=== PATIENT | male | born 1940 | race Caucasian/White ===

== ENCOUNTER 2021-01-25 11:24 | Inpatient (IN) | payer MEDICARE, BC ==
--- NOTE | 2021-01-25 11:44 | EDM.PDOC ---
ED HPI GENERAL MEDICAL PROBLEM - General Chief Complaint: General Stated Complaint: MEDICAL [facility]IA [facility] Time Seen by Provider: 01/25/21 11:44 Source of Information: Reports: Patient History Limitations: Reports: No Limitations - History of Present Illness INITIAL COMMENTS - FREE TEXT/NARRATIVE: pt is being treated for a UTI and is having increased falls. He fell today and was on the floor for about 3-4 hours. He did not injure himself. He is having trouble controlling his bladder at this time. He is not running a fever. This pt has had a very rapid deteriation. He has gone from someone who was walking secveral miles per day and mowing lawn in October to someonw who can not do anything physical. He had to quit walking because he was falling along side of the road. Onset: Gradual, Other (pt is having multiple falls. ) Duration: Hour(s): Location: Reports: Generalized Associated Symptoms: Reports: Other (pt does have slight confusion at times. He has fallen today and yesterday and spent several hours on the floor because he could not get up. ) Generalized Pain Score (Numeric/FACES): 3 - Related Data Allergies Allergy/AdvReac Type Severity Reaction Status Date / Time No Known Allergies Allergy Verified 01/25/21 11:31 Home Meds: Home Meds Oxybutynin Chloride [Oxybutynin Chloride ER] 10 mg PO DAILY 01/25/21 [History] Rivaroxaban [Xarelto] 20 mg PO DAILY 01/25/21 [History] Simvastatin 80 mg PO BEDTIME 01/25/21 [History] Terazosin [Hytrin] 10 mg PO BEDTIME 01/25/21 [History] Propranolol HCl 20 mg PO DAILY 02/10/21 [History] Past Medical History HEENT History: Reports: Hard of Hearing, Impaired Vision Cardiovascular History: Reports: Afib, High Cholesterol Respiratory History: Reports: Sleep Apnea Genitourinary History: Reports: Urinary Incontinence Musculoskeletal History: Reports: Arthritis, Back Pain, Chronic Neurological History: Reports: Concussion Hematologic History: Reports: Anticoagulation Therapy Oncologic (Cancer) History: Reports: Bladder - Infectious Disease History Infectious Disease History: Reports: Chicken Pox, Influenza, Measles, Mumps - Past Surgical History Head Surgeries/Procedures: Reports: None HEENT Surgical History: Reports: Cataract Surgery Cardiovascular Surgical History: Reports: None Respiratory Surgical History: Reports: None Endocrine Surgical History: Reports: None Neurological Surgical History: Reports: None Musculoskeletal Surgical History: Reports: None Oncologic Surgical History: Reports: None Social & Family History - Tobacco Use Tobacco Use Status *Q: Never Tobacco User Second Hand Smoke Exposure: No - Caffeine Use Caffeine Use: Reports: None - Recreational Drug Use Recreational Drug Use: No ED ROS GENERAL - Review of Systems Review Of Systems: See Below Constitutional: Reports: Weakness HEENT: Reports: No Symptoms Respiratory: Reports: No Symptoms Cardiovascular: Reports: No Symptoms Endocrine: Reports: No Symptoms GI/Abdominal: Reports: No Symptoms : Reports: No Symptoms, Other (pt has had a recent UTI) Musculoskeletal: Reports: No Symptoms Skin: Reports: No Symptoms Neurological: Reports: Difficulty Walking, Gait Disturbance, Other (increased falls. ) Psychiatric: Reports: Anxiety ED EXAM, GENERAL - Physical Exam Exam: See Below Free Text/Narrative:: pt arrived with a history of a downhill slide over the past 2-4 monthes. In the spring he was able to mow lawn He was doing alot of walking but because of frequent falls on the road he had to quit that. He is now falling alot in the house. He will slide off of the bed and then not be able to get up. 2 days in a row he has fallen and his can,t get him up. He has not hurt himself fortunately. He is not having headaches. He did have a recent uiti. Exam Limited By: No Limitations General Appearance: Alert, No Apparent Distress, Other (pupils are equal and reactive. ) Ears: Normal TMs Nose: Normal Inspection Throat/Mouth: Normal Inspection Head: Atraumatic Respiratory/Chest: No Respiratory Distress Cardiovascular: Irregularly Irregular, Other (pt has a history of chronic afib. ) GI/Abdominal: Soft, Non-Tender (Male) Exam: Deferred Rectal (Males) Exam: Normal Exam Back Exam: Normal Inspection Extremities: Other (pt has degenerative changes of the left knee. His feet are peeling alot and are very tender. ) Neurological: Alert, Oriented, Normal Cognition Psychiatric: Anxious Skin Exam: Dry, Other (pt has alot of peeling on his feet. ) Course - Vital Signs Last Recorded V/S: Last Vital Signs Temp 36.3 C 02/07/21 08:30 Pulse 75 02/07/21 08:30 Resp 18 02/07/21 08:30 BP 122/87 02/07/21 08:30 Pulse Ox 96 02/07/21 08:30 Orthostatic Blood Pressure [ 161/122 Sitting] Orthostatic Blood Pressure [ 164/111 Supine] - Orders/Labs/Meds Labs: Laboratory Tests 01/25/21 01/25/21 01/25/21 Range/Units 12:08 12:08 12:08 WBC 6.3 (4.5-11.0) K/uL RBC 4.73 (4.30-5.90) M/uL Hgb 15.2 H (12.0-15.0) g/dL Hct 44.4 (40.0-54.0) % MCV 94 (80-98) fL MCH 32 H (27-31) pg MCHC 34 (32-36) % Plt Count 101 L (150-400) K/uL Neut % (Auto) 71.4 H (36-66) % Lymph % (Auto) 13.9 L (24-44) % [place] % (Auto) 12.0 H (2-6) % Eos % (Auto) 2.2 (2-4) % Baso % (Auto) 0.5 (0-1) % Sodium 139 L (140-148) mmol/L Potassium 4.1 (3.6-5.2) mmol/L Chloride 105 (100-108) mmol/L Carbon Dioxide 29 (21-32) mmol/L Anion Gap 9.1 (5.0-14.0) mmol/L BUN 24 H (7-18) mg/dL Creatinine 1.2 (0.8-1.3) mg/dL Est Cr Clr Drug Dosing 52.09 mL/min Estimated GFR (MDRD) 58 L (>60) Glucose 97 (74-106) mg/dL Calcium 9.0 (8.5-10.1) mg/dL Total Bilirubin 1.1 H (0.2-1.0) mg/dL AST 22 (15-37) U/L ALT 18 (12-78) U/L Alkaline Phosphatase 54 (46-116) U/L Creatine Kinase 135 (39-308) U/L Total Protein 6.7 (6.4-8.2) g/dL Albumin 3.2 L (3.4-5.0) g/dL Globulin 3.5 (2.3-3.5) g/dL Albumin/Globulin Ratio 0.9 L (1.2-2.2) Urine Color (YELLOW) Urine Appearance (CLEAR) Urine pH (5.0-8.0) Ur Specific [place] (1.008-1.030) Urine Protein (NEGATIVE) mg/dL Urine Glucose (UA) (NEGATIVE) mg/dL Urine Ketones (NEGATIVE) mg/dL Urine Occult Blood (NEGATIVE) Urine Nitrite (NEGATIVE) Urine Bilirubin (NEGATIVE) Urine Urobilinogen (0.2-1.0) EU/dL Ur Leukocyte Esterase (NEGATIVE) Urine RBC (0-5) Urine WBC (0-5) Ur Epithelial Cells Amorphous Sediment Urine Bacteria Urine Mucus 01/25/21 Range/Units 12:42 WBC (4.5-11.0) K/uL RBC (4.30-5.90) M/uL Hgb (12.0-15.0) g/dL Hct (40.0-54.0) % MCV (80-98) fL MCH (27-31) pg MCHC (32-36) % Plt Count (150-400) K/uL Neut % (Auto) (36-66) % Lymph % (Auto) (24-44) % [place] % (Auto) (2-6) % Eos % (Auto) (2-4) % Baso % (Auto) (0-1) % Sodium (140-148) mmol/L Potassium (3.6-5.2) mmol/L Chloride (100-108) mmol/L Carbon Dioxide (21-32) mmol/L Anion Gap (5.0-14.0) mmol/L BUN (7-18) mg/dL Creatinine (0.8-1.3) mg/dL Est Cr Clr Drug Dosing mL/min Estimated GFR (MDRD) (>60) Glucose (74-106) mg/dL Calcium (8.5-10.1) mg/dL Total Bilirubin (0.2-1.0) mg/dL AST (15-37) U/L ALT (12-78) U/L Alkaline Phosphatase (46-116) U/L Creatine Kinase (39-308) U/L Total Protein (6.4-8.2) g/dL Albumin (3.4-5.0) g/dL Globulin (2.3-3.5) g/dL Albumin/Globulin Ratio (1.2-2.2) Urine Color Yellow (YELLOW) Urine Appearance Clear (CLEAR) Urine pH 5.5 (5.0-8.0) Ur Specific [place] >= 1.030 (1.008-1.030) Urine Protein 100 H (NEGATIVE) mg/dL Urine Glucose (UA) Negative (NEGATIVE) mg/dL Urine Ketones Trace H (NEGATIVE) mg/dL Urine Occult Blood Trace-intact H (NEGATIVE) Urine Nitrite Negative (NEGATIVE) Urine Bilirubin Small H (NEGATIVE) Urine Urobilinogen 0.2 (0.2-1.0) EU/dL Ur Leukocyte Esterase Negative (NEGATIVE) Urine RBC 5-10 H (0-5) Urine WBC 0-5 (0-5) Ur Epithelial Cells Not seen Amorphous Sediment Few Urine Bacteria Occasional Urine Mucus Few Meds: Medications Discontinued Medications Generic Name Dose Route Start Last Admin Trade Name Freq PRN Reason Stop Dose Admin Acetaminophen 650 mg 01/25/21 17:30 02/02/21 06:22 Acetaminophen 325 Mg Tab PO 650 mg Q4H PRN Administration Pain (Mild 1-3)/fever Amoxicillin 500 mg 01/25/21 21:00 01/26/21 14:32 Amoxicillin 500 Mg Cap PO 500 mg TID SEVERINO Administration Amoxicillin 500 mg 01/26/21 14:30 01/26/21 14:35 Amoxicillin 500 Mg Ptom PO Not Given TID SEVERINO Amoxicillin 500 mg 01/26/21 21:00 01/31/21 08:48 Amoxicillin 500 Mg Cap PO 500 mg TID SEVERINO Administration Diphenhydramine HCl 25 mg 01/28/21 01:57 01/28/21 05:22 Diphenhydramine 50 Mg/Ml Sdv IVPUSH 01/28/21 01:58 25 mg ONETIME ONE Administration Divalproex Sodium 125 mg 01/29/21 11:00 02/07/21 08:59 Divalproex Sodium Delayed-Release 125 Mg Cap.Sprink PO 125 mg BIDMEALS SEVERINO Administration Furosemide 40 mg 01/27/21 17:00 01/27/21 17:23 Furosemide 40 Mg Tab PO 01/27/21 17:01 40 mg ONETIME ONE Administration Furosemide 40 mg 01/28/21 09:00 02/07/21 09:02 Furosemide 40 Mg Tab PO 40 mg DAILY SEVERINO Administration Furosemide 20 mg 02/03/21 13:59 02/03/21 17:04 Furosemide 40 Mg/4 Ml Vial IVPUSH 02/03/21 14:00 Not Given NOW ONE Furosemide 20 mg 02/03/21 16:00 02/03/21 16:10 Furosemide 20 Mg/2 Ml Vial IVPUSH 02/03/21 16:01 20 mg NOW ONE Administration Furosemide 20 mg 02/04/21 16:45 02/04/21 17:05 Furosemide 20 Mg/2 Ml Vial IVPUSH 02/04/21 16:46 20 mg NOW ONE Administration Furosemide 20 mg 02/05/21 17:00 02/05/21 17:04 Furosemide 20 Mg/2 Ml Vial IVPUSH 02/05/21 17:01 20 mg NOW ONE Administration Furosemide 20 mg 02/06/21 17:00 02/06/21 16:19 Furosemide 20 Mg/2 Ml Vial IVPUSH 02/06/21 17:01 20 mg NOW ONE Administration Sodium Chloride 1,000 mls @ 999 mls/hr 01/25/21 14:00 01/25/21 14:10 Normal Saline IV 999 mls/hr ASDIRECTED SEVERINO Administration Lidocaine HCl 10 ml 01/25/21 12:20 01/25/21 12:44 Lidocaine 2% Jelly 10 Ml Urojet MUCMEM 01/25/21 12:21 10 ml ONETIME ONE Administration Lorazepam 0.5 mg 01/25/21 17:30 Lorazepam 2 Mg/Ml Sdv IVPUSH Q4H PRN Nausea/Vomiting Lorazepam 1 mg 01/26/21 11:46 01/26/21 11:53 Lorazepam 1 Mg Tab PO 01/26/21 11:47 1 mg ONETIME STA Administration Melatonin 9 mg 01/25/21 21:00 02/06/21 20:07 Melatonin 3 Mg Tab PO 9 mg BEDTIME SEVERINO Administration Methylprednisolone Sodium Succinate 40 mg 02/03/21 14:00 02/05/21 08:23 Methylprednisolone Sodium Succinate 40 Mg/1 Ml Sdv IVPUSH 02/05/21 16:00 40 mg DAILY SEVERINO Administration Ondansetron HCl 4 mg 01/25/21 17:30 Ondansetron 4 Mg/2 Ml Sdv IV Q6H PRN Nausea/Vomiting Ondansetron HCl 4 mg 01/25/21 17:30 Ondansetron 4 Mg Tab.Dis PO Q6H PRN Nausea able to take PO Polyethylene Glycol 17 gm 01/25/21 17:30 Polyethylene Glycol 3350 Powder 17 Gm Packet PO DAILY PRN Constipation Potassium Chloride 40 meq 01/30/21 06:56 01/30/21 09:09 Potassium Chloride 20 Meq Tab.Er PO 01/30/21 06:57 40 meq ONETIME ONE Administration Potassium Chloride 40 meq 02/05/21 09:30 02/05/21 09:59 Potassium Chloride 20 Meq Tab.Er PO 02/05/21 09:31 40 meq ONETIME ONE Administration Potassium Chloride 40 meq 02/05/21 17:00 02/05/21 17:05 Potassium Chloride 20 Meq Tab.Er PO 02/05/21 17:01 40 meq ONETIME ONE Administration Potassium Chloride 40 meq 02/06/21 12:00 02/06/21 11:35 Potassium Chloride 20 Meq Tab.Er PO 02/06/21 12:01 40 meq ONETIME ONE Administration Propranolol HCl 120 mg 01/26/21 09:00 01/26/21 10:08 Propranolol 60 Mg Cap.Er PO 120 mg DAILY SEVERINO Administration Senna/Docusate Sodium 1 tab 01/25/21 17:30 02/02/21 06:22 Docusate Sodium/Sennosides 50-8.6 Mg Tab PO 1 tab BID PRN Administration Constipation Sodium Chloride 10 ml 02/03/21 15:48 Sodium Chloride 0.9% 10 Ml Syringe FLUSH ASDIRECTED PRN Keep Vein Open Terazosin HCl 10 mg 01/25/21 21:00 01/25/21 20:34 Terazosin 5 Mg Cap PO 10 mg BEDTIME SEVERINO Administration Terazosin HCl 10 mg 01/26/21 21:00 02/06/21 20:06 Terazosin 5 Mg Cap PO 10 mg BEDTIME SEVERINO Administration - Re-Assessments/Exams Free Text/Narrative Re-Assessment/Exam: 01/25/21 15:32 pt has very concentrated urine but the infection appears to be coming under control He continues to fall and then is not able to get up. His cat scan of the head does show enlarged ventricles. Departure - Departure Time of Disposition: 15:36 Disposition: Admitted As Inpatient 64 Condition: Fair Clinical Impression: Falls frequently, Recent urinary tract infection - Discharge Information
[2021-01-25] MEDS ORDERED: Lidocaine 2% Jelly 10 ML Urojet MUCMEM ONE (12:20)
[2021-01-25] MEDS ORDERED: Sodium Chloride 0.9% 1,000 ML IV SCH (14:00)
--- NOTE | 2021-01-25 14:38 | CT ---
Head wo Cont CLINICAL HISTORY: Increased following, confusion COMPARISON: 04/05/2018 TECHNIQUE: Transverse scans were obtained from the base of the skull through the vertex without IV contrast on a multislice, multidetector CT scanner. Auto dosage reduction and iterative reconstruction techniques employed. FINDINGS: No focal abnormal parenchymal densities are identified.. There is no mass effect, hemorrhage, or extraaxial collection. There is some periventricular and subcortical lucency. The basal cisterns and sulci over the convexities are prominent. The ventricles are moderately prominent and have increased in size since 2018. IMPRESSION: No hemorrhage or extra-axial collection Moderate ventricular enlargement which is increased since 2018. Some of this may be due to generalized atrophy but normal pressure hydrocephalus is also a consideration. Chronic ischemic microvascular changes
--- NOTE | 2021-01-25 16:42 | PCM.HP.2 ---
H&P History of Present Illness - General Date of Service: 01/25/21 Admit Problem/Dx: Admission Diagnosis/Problem Admission Diagnosis/Problem Falls Source of Information: Patient, Provider History Limitations: Reports: No Limitations - History of Present Illness Initial Comments - Free Text/Narative: CC: I guess I fell down HPI: Valentin presents to the emergency room today after another fall earlier in the day. He was too weak to get up and laid on the floor for 3 to 4 hours before an ambulance was summoned. He also reports several falls over the past few days and infrequent but progressive falls prior to that. Symptoms have progressed over the last 3 to 4 months. He reports feeling unsteady on his feet like his feet cannot keep up with his torso and then he falls forward. He does not report any preceding dizziness, lightheadedness or palpitations. Once he is on the floor he is too weak to get up and the weakness has progressed over the past several days. Does not report headache or blurry vision. He has not noticed any tremors. No chest pain. No dyspnea beyond baseline. He has noticed some urinary urgency recently but has not had incontinence. No change in bowel habits. No medication changes. He is currently receiving antibiotic therapy for urinary tract infection with a culture positive for a strep species. He is aware of some intermittent short-term memory problems and his reports intermittent episodes of confusion though these have not been prominent. He does not have any difficulty with swallowing. Work-up in the emergency room has been fairly reassuring as far as laboratory studies and his urinary tract infection seems to be clearing. Head CT did show moderate enlargement of the ventricles with a slight increase compared to his most recent head CT. There is concern for normal pressure hydrocephalus. Patient will be admitted for additional imaging as well as physical therapy and neurology consultation after that is complete. - Related Data Allergies/Adverse Reactions: Allergies Allergy/AdvReac Type Severity Reaction Status Date / Time No Known Allergies Allergy Verified 01/25/21 11:31 Home Medications: Home Meds Amoxicillin 500 mg PO TID 01/25/21 [History] Oxybutynin Chloride [Oxybutynin Chloride ER] 10 mg PO DAILY 01/25/21 [History] Propranolol HCl [Propranolol HCl ER] 120 mg PO DAILY 01/25/21 [History] Rivaroxaban [Xarelto] 1 tab PO DAILY 01/25/21 [History] Simvastatin 80 mg PO DAILY 01/25/21 [History] Terazosin [Hytrin] 10 mg PO BEDTIME 01/25/21 [History] Past Medical History HEENT History: Reports: Hard of Hearing, Impaired Vision Cardiovascular History: Reports: Afib, High Cholesterol Respiratory History: Reports: Sleep Apnea Genitourinary History: Reports: Urinary Incontinence Musculoskeletal History: Reports: Arthritis, Back Pain, Chronic Neurological History: Reports: Concussion Hematologic History: Reports: Anticoagulation Therapy Oncologic (Cancer) History: Reports: Bladder - Infectious Disease History Infectious Disease History: Reports: Chicken Pox, Influenza, Measles, Mumps - Past Surgical History Head Surgeries/Procedures: Reports: None HEENT Surgical History: Reports: Cataract Surgery Cardiovascular Surgical History: Reports: None Respiratory Surgical History: Reports: None Endocrine Surgical History: Reports: None Neurological Surgical History: Reports: None Musculoskeletal Surgical History: Reports: None Oncologic Surgical History: Reports: None Social & Family History - Family History Neurological: Denies: Parkinson's - Tobacco Use Tobacco Use Status *Q: Never Tobacco User Second Hand Smoke Exposure: No - Caffeine Use Caffeine Use: Reports: None - Alcohol Use Alcohol Use History: No Alcohol Use in Last Twelve Months: No - Recreational Drug Use Recreational Drug Use: No H&P Review of Systems - Review of Systems: Review Of Systems: See Below Free Text/Narrative: A complete 12 point review of systems was obtained. Pertinent positives and negatives are noted in the history of present illness. All other systems were reviewed and were negative except as noted. Exam - Exam Exam: See Below - Vital Signs Vital Signs: Last Vital Signs Temp 36.7 C 01/25/21 12:14 Pulse 55 L 01/25/21 15:53 Resp 12 01/25/21 15:53 BP 95/74 01/25/21 15:53 Pulse Ox 95 01/25/21 15:53 Orthostatic Blood Pressure [ 161/122 Sitting] Orthostatic Blood Pressure [ 164/111 Supine] Weight: 99.79 kg - Exam Quality Assessment: No: Supplemental Oxygen General: Alert, Oriented, Cooperative. No: Mild Distress HEENT: PERRLA, Conjunctiva Clear, EOMI. No: Mucosa Moist & [place] (dry), Rhinitis, Scleral Icterus Neck: Supple, Trachea Midline. No: Lymphadenopathy, JVD Lungs: Clear to Auscultation, Normal Respiratory Effort Cardiovascular: Regular Rate, Irregular Rhythm. No: Systolic Murmur GI/Abdominal Exam: Normal Bowel Sounds, Soft, Non-Tender, No Distention Extremities: No Pedal Edema. No: Increased Warmth Peripheral Pulses: 2+: Dorsalis Pedis (L), Dorsalis Pedis (R) Skin: Warm, Dry, Intact, Wound (right great toenail avulsed without bleeding ). No: Rash Neuro Extensive - Mental Status: Alert, Oriented x3, Memory Loss-Remote Events, Nl Response to Commands Neuro Extensive - Motor, Sensory, Reflexes: No: Dysarthria, Abnormal Sensation, Abnormal Motor, Babinski, Tremor DTR: 1+: Bicep (L), Bicep (R), Patella (L), Patella (R) Psychiatric: Alert, Normal Affect - Patient Data Lab Results Last 24 hrs: Laboratory Results - last 24 hr 01/25/21 01/25/21 01/25/21 Range/Units 12:08 12:08 12:08 WBC 6.3 (4.5-11.0) K/uL RBC 4.73 (4.30-5.90) M/uL Hgb 15.2 H (12.0-15.0) g/dL Hct 44.4 (40.0-54.0) % MCV 94 (80-98) fL MCH 32 H (27-31) pg MCHC 34 (32-36) % Plt Count 101 L (150-400) K/uL Neut % (Auto) 71.4 H (36-66) % Lymph % (Auto) 13.9 L (24-44) % [place] % (Auto) 12.0 H (2-6) % Eos % (Auto) 2.2 (2-4) % Baso % (Auto) 0.5 (0-1) % Sodium 139 L (140-148) mmol/L Potassium 4.1 (3.6-5.2) mmol/L Chloride 105 (100-108) mmol/L Carbon Dioxide 29 (21-32) mmol/L Anion Gap 9.1 (5.0-14.0) mmol/L BUN 24 H (7-18) mg/dL Creatinine 1.2 (0.8-1.3) mg/dL Est Cr Clr Drug Dosing 52.09 mL/min Estimated GFR (MDRD) 58 L (>60) Glucose 97 (74-106) mg/dL Calcium 9.0 (8.5-10.1) mg/dL Total Bilirubin 1.1 H (0.2-1.0) mg/dL AST 22 (15-37) U/L ALT 18 (12-78) U/L Alkaline Phosphatase 54 (46-116) U/L Creatine Kinase 135 (39-308) U/L Total Protein 6.7 (6.4-8.2) g/dL Albumin 3.2 L (3.4-5.0) g/dL Globulin 3.5 (2.3-3.5) g/dL Albumin/Globulin Ratio 0.9 L (1.2-2.2) Urine Color (YELLOW) Urine Appearance (CLEAR) Urine pH (5.0-8.0) Ur Specific [place] (1.008-1.030) Urine Protein (NEGATIVE) mg/dL Urine Glucose (UA) (NEGATIVE) mg/dL Urine Ketones (NEGATIVE) mg/dL Urine Occult Blood (NEGATIVE) Urine Nitrite (NEGATIVE) Urine Bilirubin (NEGATIVE) Urine Urobilinogen (0.2-1.0) EU/dL Ur Leukocyte Esterase (NEGATIVE) Urine RBC (0-5) Urine WBC (0-5) Ur Epithelial Cells Amorphous Sediment Urine Bacteria Urine Mucus 01/25/21 Range/Units 12:42 WBC (4.5-11.0) K/uL RBC (4.30-5.90) M/uL Hgb (12.0-15.0) g/dL Hct (40.0-54.0) % MCV (80-98) fL MCH (27-31) pg MCHC (32-36) % Plt Count (150-400) K/uL Neut % (Auto) (36-66) % Lymph % (Auto) (24-44) % [place] % (Auto) (2-6) % Eos % (Auto) (2-4) % Baso % (Auto) (0-1) % Sodium (140-148) mmol/L Potassium (3.6-5.2) mmol/L Chloride (100-108) mmol/L Carbon Dioxide (21-32) mmol/L Anion Gap (5.0-14.0) mmol/L BUN (7-18) mg/dL Creatinine (0.8-1.3) mg/dL Est Cr Clr Drug Dosing mL/min Estimated GFR (MDRD) (>60) Glucose (74-106) mg/dL Calcium (8.5-10.1) mg/dL Total Bilirubin (0.2-1.0) mg/dL AST (15-37) U/L ALT (12-78) U/L Alkaline Phosphatase (46-116) U/L Creatine Kinase (39-308) U/L Total Protein (6.4-8.2) g/dL Albumin (3.4-5.0) g/dL Globulin (2.3-3.5) g/dL Albumin/Globulin Ratio (1.2-2.2) Urine Color Yellow (YELLOW) Urine Appearance Clear (CLEAR) Urine pH 5.5 (5.0-8.0) Ur Specific [place] >= 1.030 (1.008-1.030) Urine Protein 100 H (NEGATIVE) mg/dL Urine Glucose (UA) Negative (NEGATIVE) mg/dL Urine Ketones Trace H (NEGATIVE) mg/dL Urine Occult Blood Trace-intact H (NEGATIVE) Urine Nitrite Negative (NEGATIVE) Urine Bilirubin Small H (NEGATIVE) Urine Urobilinogen 0.2 (0.2-1.0) EU/dL Ur Leukocyte Esterase Negative (NEGATIVE) Urine RBC 5-10 H (0-5) Urine WBC 0-5 (0-5) Ur Epithelial Cells Not seen Amorphous Sediment Few Urine Bacteria Occasional Urine Mucus Few Result Diagrams: 01/25/21 12:08 01/25/21 12:08 Imaging Impressions Last 24 hrs: Head CT-images personally reviewed-mild diffuse volume loss. Ventricles moderately enlarged, possibly slightly more than expected with volume loss. No mass or hemorrhage Sepsis Event Note - Focused Exam Vital Signs: Vital Signs Temp Pulse Resp BP Pulse Ox 01/25/21 15:53 55 L 12 95/74 95 01/25/21 15:30 69 16 148/98 H 94 L 01/25/21 14:40 64 19 140/90 97 01/25/21 13:27 55 L 15 158/85 H 94 L 01/25/21 12:26 54 L 21 H 128/72 95 01/25/21 12:14 36.7 C 01/25/21 11:35 36.4 C 54 L 18 131/67 94 L 01/25/21 11:32 36.4 C 54 L 18 131/67 94 L *Q Meaningful Use (ADM) - VTE Risk Assess *Q Each Risk Factor Represents 1 Point: Obesity ( BMI > 25 kg/m2) Total Score 1 Point Risk Factors: 1 Each Risk Factor Represents 2 Points: Malignancy (present or previous) Total Score 2 Point Risk Factors: 2 Each Risk Factor Represents 3 Points: Age 75 Years or Greater Total Score 3 Point Risk Factors: 3 Each Risk Factor Represents 5 Points: None Total Score 5 Point Risk Factors: 0 Venous Thromboembolism Risk Factor Score *Q: 6 - Problem List (1) Falls frequently SNOMED Code(s): 740747167 ICD Code: R29.6 - REPEATED FALLS Status: Acute Current Visit: Yes (2) NPH (normal pressure hydrocephalus) SNOMED Code(s): 14861788 ICD Code: G91.2 - (IDIOPATHIC) NORMAL PRESSURE HYDROCEPHALUS Status: Suspected Current Visit: Yes (3) BPH loc w urin obs/LUTS SNOMED Code(s): 108975679 ICD Code: N40.1 - BENIGN PROSTATIC HYPERPLASIA WITH LOWER URINARY TRACT SYMP Status: Chronic Current Visit: Yes (4) Chronic atrial fibrillation SNOMED Code(s): 225605334 ICD Code: I48.20 - CHRONIC ATRIAL FIBRILLATION, UNSPECIFIED Status: Chronic Current Visit: Yes Problem List Initiated/Reviewed/Updated: Yes Orders Last 24hrs: Active Orders 24 hr Category Date Time Status Patient Status Manage Transfer [TRANSFER] Routine ADT 01/25/21 16:32 Ordered Orthostatic Vital Signs [RC] ASDIRECTED Care 01/25/21 13:47 Active Sodium Chloride 0.9% [Normal Saline] 1,000 ml Med 01/25/21 14:00 Active IV ASDIRECTED Resuscitation Status Routine Resus Stat 01/25/21 16:33 Ordered Medication Orders Sodium Chloride (Normal Saline) 1,000 mls @ 999 mls/hr IV ASDIRECTED SEVERINO Last Admin: 01/25/21 14:10 Dose: 999 mls/hr Documented by: CALEB Assessment/Plan Comment:: ASSESSMENT AND PLAN - Repeated falls, urinary urgency and memory difficulties-concerning for NPH and he has previously been worked up for this though it was thought to be mild if present about 2 years ago. He has had a progression of symptoms with more rapid decline in recent weeks and especially the last few days. He is being treated for urinary tract infection but there is no evidence for sepsis. I doubt this is contributing. Medication side effect related to potentially the oxybutynin with an anticholinergic effect or less likely simvastatin which is being used at high dose could cause a similar syndrome. Head CT today did show some enlargement of the ventricles compared to previous imaging. We cannot perform a lumbar puncture because of his use of systemic anticoagulation. -MRI of the brain in the morning -Physical therapy evaluation -Hold oxybutynin and simvastatin -Neurology consultation -TSH, CRP and sedimentation rate Chronic atrial fibrillation-currently rate controlled with propranolol. He is on chronic anticoagulation with rivaroxaban. -Continue propranolol -Hold rivaroxaban in case we do need to perform a lumbar puncture History of bladder cancer-regularly follows with [facility]. Is not thought to have active disease and appears to be in remission. BPH with lower urinary tract symptoms-he is on 2 different medications including the oxybutynin to help with bladder issues. The oxybutynin could be contr ibuting as discussed above. -Hold oxybutynin Maintenance issues - -DVT prophylaxis- mechanical -GI prophylaxis-not indicated -Nutrition-regular -Hernandez catheter-not indicated CODE STATUS -full code Admission justification -this patient will be admitted to observation status for expedited work-up of his recurrent falls and possible NPH Disposition -I anticipate discharge home after the hospital stay versus potentially transfer to a higher level of care Primary care physician - Leland Goldberg M.D. - Mortality Measure Prognosis:: Good
[2021-01-25] MEDS ORDERED: Ondansetron 4 MG Tab.DIS PO PRN (17:30)
[2021-01-25] MEDS ORDERED: LORazepam 2 MG/ML SDV IVPUSH PRN (17:30)
[2021-01-25] MEDS ORDERED: Ondansetron 4 MG/2 ML SDV IV PRN (17:30)
[2021-01-25] MEDS ORDERED: Polyethylene Glycol 3350 Powder 17 GM Packet PO PRN (17:30)
[2021-01-25] MEDS: Melatonin 3 MG Tab PO SCH (20:33)
[2021-01-25] MEDS: Amoxicillin 500 MG Cap PO SCH (20:34)
[2021-01-25] MEDS ORDERED: Terazosin 5 MG Cap PO SCH (21:00)
[2021-01-26] MEDS: Amoxicillin 500 MG Cap PO SCH ×3 (08:42→20:37)
[2021-01-26] MEDS ORDERED: Propranolol 60 MG Cap.ER PO SCH (09:00)
--- NOTE | 2021-01-26 09:58 | PCM.PN ---
- General Info Date of Service: 01/26/21 Subjective Update: No acute events overnight. One episode of very mild bradycardia noted on telemetry but heart rate only dipped down to 48. Most of his heart rates have been in the 60s. Patient says he feels well today and is hoping to go home later. He currently requires a fairly heavy assist of 2 folks to get around. He does not think he needs this much assistance and thinks he could do better if they left him alone. No complaints of headache or nausea. MRI is still pending and he is not sure if he wants to have this test done or not because he thinks it might be too loud. He is asking to be transferred to [place] to have the test done there. Functional Status: Reports: Pain Controlled, Tolerating Diet - Review of Systems General: Reports: Weakness. Denies: Fever - Patient Data Vitals - Most Recent: Last Vital Signs Temp 36.0 C L 01/26/21 09:30 Pulse 68 01/26/21 09:30 Resp 18 01/26/21 09:30 BP 150/98 H 01/26/21 09:30 Pulse Ox 96 01/26/21 09:30 Orthostatic Blood Pressure [ 161/122 Sitting] Orthostatic Blood Pressure [ 164/111 Supine] Weight - Most Recent: 100.698 kg I&O - Last 24 Hours: Intake & Output 01/25/21 01/26/21 01/26/21 22:59 06:59 14:59 Intake Total 480 425 Balance 480 425 Lab Results Last 24 Hours: Laboratory Results - last 24 hr 01/25/21 01/25/21 01/25/21 Range/Units 12:08 12:08 12:08 WBC 6.3 (4.5-11.0) K/uL RBC 4.73 (4.30-5.90) M/uL Hgb 15.2 H (12.0-15.0) g/dL Hct 44.4 (40.0-54.0) % MCV 94 (80-98) fL MCH 32 H (27-31) pg MCHC 34 (32-36) % Plt Count 101 L (150-400) K/uL Neut % (Auto) 71.4 H (36-66) % Lymph % (Auto) 13.9 L (24-44) % [place] % (Auto) 12.0 H (2-6) % Eos % (Auto) 2.2 (2-4) % Baso % (Auto) 0.5 (0-1) % ESR (0-20) mm/hr Sodium 139 L (140-148) mmol/L Potassium 4.1 (3.6-5.2) mmol/L Chloride 105 (100-108) mmol/L Carbon Dioxide 29 (21-32) mmol/L Anion Gap 9.1 (5.0-14.0) mmol/L BUN 24 H (7-18) mg/dL Creatinine 1.2 (0.8-1.3) mg/dL Est Cr Clr Drug Dosing 52.09 mL/min Estimated GFR (MDRD) 58 L (>60) Glucose 97 (74-106) mg/dL Calcium 9.0 (8.5-10.1) mg/dL Total Bilirubin 1.1 H (0.2-1.0) mg/dL AST 22 (15-37) U/L ALT 18 (12-78) U/L Alkaline Phosphatase 54 (46-116) U/L Creatine Kinase 135 (39-308) U/L C-Reactive Protein (0.0-0.3) mg/dL Total Protein 6.7 (6.4-8.2) g/dL Albumin 3.2 L (3.4-5.0) g/dL Globulin 3.5 (2.3-3.5) g/dL Albumin/Globulin Ratio 0.9 L (1.2-2.2) TSH, Ultra Sensitive (0.358-3.740) uIU/mL Urine Color (YELLOW) Urine Appearance (CLEAR) Urine pH (5.0-8.0) Ur Specific [place] (1.008-1.030) Urine Protein (NEGATIVE) mg/dL Urine Glucose (UA) (NEGATIVE) mg/dL Urine Ketones (NEGATIVE) mg/dL Urine Occult Blood (NEGATIVE) Urine Nitrite (NEGATIVE) Urine Bilirubin (NEGATIVE) Urine Urobilinogen (0.2-1.0) EU/dL Ur Leukocyte Esterase (NEGATIVE) Urine RBC (0-5) Urine WBC (0-5) Ur Epithelial Cells Amorphous Sediment Urine Bacteria Urine Mucus SARS-CoV-2 RNA (INDIO) (NEGATIVE) 01/25/21 01/25/21 01/26/21 Range/Units 12:42 17:01 04:59 WBC (4.5-11.0) K/uL RBC (4.30-5.90) M/uL Hgb (12.0-15.0) g/dL Hct (40.0-54.0) % MCV (80-98) fL MCH (27-31) pg MCHC (32-36) % Plt Count (150-400) K/uL Neut % (Auto) (36-66) % Lymph % (Auto) (24-44) % [place] % (Auto) (2-6) % Eos % (Auto) (2-4) % Baso % (Auto) (0-1) % ESR 18 (0-20) mm/hr Sodium (140-148) mmol/L Potassium (3.6-5.2) mmol/L Chloride (100-108) mmol/L Carbon Dioxide (21-32) mmol/L Anion Gap (5.0-14.0) mmol/L BUN (7-18) mg/dL Creatinine (0.8-1.3) mg/dL Est Cr Clr Drug Dosing mL/min Estimated GFR (MDRD) (>60) Glucose (74-106) mg/dL Calcium (8.5-10.1) mg/dL Total Bilirubin (0.2-1.0) mg/dL AST (15-37) U/L ALT (12-78) U/L Alkaline Phosphatase (46-116) U/L Creatine Kinase (39-308) U/L C-Reactive Protein (0.0-0.3) mg/dL Total Protein (6.4-8.2) g/dL Albumin (3.4-5.0) g/dL Globulin (2.3-3.5) g/dL Albumin/Globulin Ratio (1.2-2.2) TSH, Ultra Sensitive (0.358-3.740) uIU/mL Urine Color Yellow (YELLOW) Urine Appearance Clear (CLEAR) Urine pH 5.5 (5.0-8.0) Ur Specific [place] >= 1.030 (1.008-1.030) Urine Protein 100 H (NEGATIVE) mg/dL Urine Glucose (UA) Negative (NEGATIVE) mg/dL Urine Ketones Trace H (NEGATIVE) mg/dL Urine Occult Blood Trace-intact H (NEGATIVE) Urine Nitrite Negative (NEGATIVE) Urine Bilirubin Small H (NEGATIVE) Urine Urobilinogen 0.2 (0.2-1.0) EU/dL Ur Leukocyte Esterase Negative (NEGATIVE) Urine RBC 5-10 H (0-5) Urine WBC 0-5 (0-5) Ur Epithelial Cells Not seen Amorphous Sediment Few Urine Bacteria Occasional Urine Mucus Few SARS-CoV-2 RNA (INDIO) Negative (NEGATIVE) 01/26/21 Range/Units 04:59 WBC (4.5-11.0) K/uL RBC (4.30-5.90) M/uL Hgb (12.0-15.0) g/dL Hct (40.0-54.0) % MCV (80-98) fL MCH (27-31) pg MCHC (32-36) % Plt Count (150-400) K/uL Neut % (Auto) (36-66) % Lymph % (Auto) (24-44) % [place] % (Auto) (2-6) % Eos % (Auto) (2-4) % Baso % (Auto) (0-1) % ESR (0-20) mm/hr Sodium (140-148) mmol/L Potassium (3.6-5.2) mmol/L Chloride (100-108) mmol/L Carbon Dioxide (21-32) mmol/L Anion Gap (5.0-14.0) mmol/L BUN (7-18) mg/dL Creatinine (0.8-1.3) mg/dL Est Cr Clr Drug Dosing mL/min Estimated GFR (MDRD) (>60) Glucose (74-106) mg/dL Calcium (8.5-10.1) mg/dL Total Bilirubin (0.2-1.0) mg/dL AST (15-37) U/L ALT (12-78) U/L Alkaline Phosphatase (46-116) U/L Creatine Kinase (39-308) U/L C-Reactive Protein 4.89 H (0.0-0.3) mg/dL Total Protein (6.4-8.2) g/dL Albumin (3.4-5.0) g/dL Globulin (2.3-3.5) g/dL Albumin/Globulin Ratio (1.2-2.2) TSH, Ultra Sensitive 2.184 (0.358-3.740) uIU/mL Urine Color (YELLOW) Urine Appearance (CLEAR) Urine pH (5.0-8.0) Ur Specific [place] (1.008-1.030) Urine Protein (NEGATIVE) mg/dL Urine Glucose (UA) (NEGATIVE) mg/dL Urine Ketones (NEGATIVE) mg/dL Urine Occult Blood (NEGATIVE) Urine Nitrite (NEGATIVE) Urine Bilirubin (NEGATIVE) Urine Urobilinogen (0.2-1.0) EU/dL Ur Leukocyte Esterase (NEGATIVE) Urine RBC (0-5) Urine WBC (0-5) Ur Epithelial Cells Amorphous Sediment Urine Bacteria Urine Mucus SARS-CoV-2 RNA (INDIO) (NEGATIVE) Med Orders - Current: Current Medications Acetaminophen (Acetaminophen 325 Mg Tab) 650 mg PO Q4H PRN PRN Reason: Pain (Mild 1-3)/fever Amoxicillin (Amoxicillin 500 Mg Cap) 500 mg PO TID [facility] Last Admin: 01/26/21 08:42 Dose: 500 mg Documented by: Lorazepam (Lorazepam 2 Mg/Ml Sdv) 0.5 mg IVPUSH Q4H PRN PRN Reason: Nausea/Vomiting Melatonin (Melatonin 3 Mg Tab) 9 mg PO BEDTIME [facility] Last Admin: 01/25/21 20:33 Dose: 9 mg Documented by: Ondansetron HCl (Ondansetron 4 Mg/2 Ml Sdv) 4 mg IV Q6H PRN PRN Reason: Nausea/Vomiting Ondansetron HCl (Ondansetron 4 Mg Tab.Dis) 4 mg PO Q6H PRN PRN Reason: Nausea able to take PO Polyethylene Glycol (Polyethylene Glycol 3350 Powder 17 Gm Packet) 17 gm PO DAILY PRN PRN Reason: Constipation Propranolol HCl (Propranolol 60 Mg Cap.Er) 120 mg PO DAILY [facility] Senna/Docusate Sodium (Docusate Sodium/Sennosides 50-8.6 Mg Tab) 1 tab PO BID PRN PRN Reason: Constipation Terazosin HCl (Terazosin 5 Mg Cap) 10 mg PO BEDTIME [facility] Last Admin: 01/25/21 20:34 Dose: 10 mg Documented by: Discontinued Medications Sodium Chloride (Normal Saline) 1,000 mls @ 999 mls/hr IV ASDIRECTED [facility] Last Admin: 01/25/21 14:10 Dose: 999 mls/hr Documented by: Lidocaine HCl (Lidocaine 2% Jelly 10 Ml Urojet) 10 ml MUCMEM ONETIME ONE Stop: 01/25/21 12:21 Last Admin: 01/25/21 12:44 Dose: 10 ml Documented by: - Exam Quality Assessment: No: Supplemental Oxygen General: Alert, Cooperative, No Acute Distress Lungs: Normal Respiratory Effort GI/Abdominal Exam: Soft, No Distention Extremities: No Pedal Edema Skin: Warm, Dry Neurological: No New Focal Deficit Psy/Mental Status: Alert, Normal Affect - Patient Data Lab Results Last 24 hrs: Laboratory Results - last 24 hr 01/25/21 01/25/21 01/25/21 Range/Units 12:08 12:08 12:08 WBC 6.3 (4.5-11.0) K/uL RBC 4.73 (4.30-5.90) M/uL Hgb 15.2 H (12.0-15.0) g/dL Hct 44.4 (40.0-54.0) % MCV 94 (80-98) fL MCH 32 H (27-31) pg MCHC 34 (32-36) % Plt Count 101 L (150-400) K/uL Neut % (Auto) 71.4 H (36-66) % Lymph % (Auto) 13.9 L (24-44) % [place] % (Auto) 12.0 H (2-6) % Eos % (Auto) 2.2 (2-4) % Baso % (Auto) 0.5 (0-1) % ESR (0-20) mm/hr Sodium 139 L (140-148) mmol/L Potassium 4.1 (3.6-5.2) mmol/L Chloride 105 (100-108) mmol/L Carbon Dioxide 29 (21-32) mmol/L Anion Gap 9.1 (5.0-14.0) mmol/L BUN 24 H (7-18) mg/dL Creatinine 1.2 (0.8-1.3) mg/dL Est Cr Clr Drug Dosing 52.09 mL/min Estimated GFR (MDRD) 58 L (>60) Glucose 97 (74-106) mg/dL Calcium 9.0 (8.5-10.1) mg/dL Total Bilirubin 1.1 H (0.2-1.0) mg/dL AST 22 (15-37) U/L ALT 18 (12-78) U/L Alkaline Phosphatase 54 (46-116) U/L Creatine Kinase 135 (39-308) U/L C-Reactive Protein (0.0-0.3) mg/dL Total Protein 6.7 (6.4-8.2) g/dL Albumin 3.2 L (3.4-5.0) g/dL Globulin 3.5 (2.3-3.5) g/dL Albumin/Globulin Ratio 0.9 L (1.2-2.2) TSH, Ultra Sensitive (0.358-3.740) uIU/mL Urine Color (YELLOW) Urine Appearance (CLEAR) Urine pH (5.0-8.0) Ur Specific [place] (1.008-1.030) Urine Protein (NEGATIVE) mg/dL Urine Glucose (UA) (NEGATIVE) mg/dL Urine Ketones (NEGATIVE) mg/dL Urine Occult Blood (NEGATIVE) Urine Nitrite (NEGATIVE) Urine Bilirubin (NEGATIVE) Urine Urobilinogen (0.2-1.0) EU/dL Ur Leukocyte Esterase (NEGATIVE) Urine RBC (0-5) Urine WBC (0-5) Ur Epithelial Cells Amorphous Sediment Urine Bacteria Urine Mucus SARS-CoV-2 RNA (INDIO) (NEGATIVE) 01/25/21 01/25/21 01/26/21 Range/Units 12:42 17:01 04:59 WBC (4.5-11.0) K/uL RBC (4.30-5.90) M/uL Hgb (12.0-15.0) g/dL Hct (40.0-54.0) % MCV (80-98) fL MCH (27-31) pg MCHC (32-36) % Plt Count (150-400) K/uL Neut % (Auto) (36-66) % Lymph % (Auto) (24-44) % [place] % (Auto) (2-6) % Eos % (Auto) (2-4) % Baso % (Auto) (0-1) % ESR 18 (0-20) mm/hr Sodium (140-148) mmol/L Potassium (3.6-5.2) mmol/L Chloride (100-108) mmol/L Carbon Dioxide (21-32) mmol/L Anion Gap (5.0-14.0) mmol/L BUN (7-18) mg/dL Creatinine (0.8-1.3) mg/dL Est Cr Clr Drug Dosing mL/min Estimated GFR (MDRD) (>60) Glucose (74-106) mg/dL Calcium (8.5-10.1) mg/dL Total Bilirubin (0.2-1.0) mg/dL AST (15-37) U/L ALT (12-78) U/L Alkaline Phosphatase (46-116) U/L Creatine Kinase (39-308) U/L C-Reactive Protein (0.0-0.3) mg/dL Total Protein (6.4-8.2) g/dL Albumin (3.4-5.0) g/dL Globulin (2.3-3.5) g/dL Albumin/Globulin Ratio (1.2-2.2) TSH, Ultra Sensitive (0.358-3.740) uIU/mL Urine Color Yellow (YELLOW) Urine Appearance Clear (CLEAR) Urine pH 5.5 (5.0-8.0) Ur Specific [place] >= 1.030 (1.008-1.030) Urine Protein 100 H (NEGATIVE) mg/dL Urine Glucose (UA) Negative (NEGATIVE) mg/dL Urine Ketones Trace H (NEGATIVE) mg/dL Urine Occult Blood Trace-intact H (NEGATIVE) Urine Nitrite Negative (NEGATIVE) Urine Bilirubin Small H (NEGATIVE) Urine Urobilinogen 0.2 (0.2-1.0) EU/dL Ur Leukocyte Esterase Negative (NEGATIVE) Urine RBC 5-10 H (0-5) Urine WBC 0-5 (0-5) Ur Epithelial Cells Not seen Amorphous Sediment Few Urine Bacteria Occasional Urine Mucus Few SARS-CoV-2 RNA (INDIO) Negative (NEGATIVE) 01/26/21 Range/Units 04:59 WBC (4.5-11.0) K/uL RBC (4.30-5.90) M/uL Hgb (12.0-15.0) g/dL Hct (40.0-54.0) % MCV (80-98) fL MCH (27-31) pg MCHC (32-36) % Plt Count (150-400) K/uL Neut % (Auto) (36-66) % Lymph % (Auto) (24-44) % [place] % (Auto) (2-6) % Eos % (Auto) (2-4) % Baso % (Auto) (0-1) % ESR (0-20) mm/hr Sodium (140-148) mmol/L Potassium (3.6-5.2) mmol/L Chloride (100-108) mmol/L Carbon Dioxide (21-32) mmol/L Anion Gap (5.0-14.0) mmol/L BUN (7-18) mg/dL Creatinine (0.8-1.3) mg/dL Est Cr Clr Drug Dosing mL/min Estimated GFR (MDRD) (>60) Glucose (74-106) mg/dL Calcium (8.5-10.1) mg/dL Total Bilirubin (0.2-1.0) mg/dL AST (15-37) U/L ALT (12-78) U/L Alkaline Phosphatase (46-116) U/L Creatine Kinase (39-308) U/L C-Reactive Protein 4.89 H (0.0-0.3) mg/dL Total Protein (6.4-8.2) g/dL Albumin (3.4-5.0) g/dL Globulin (2.3-3.5) g/dL Albumin/Globulin Ratio (1.2-2.2) TSH, Ultra Sensitive 2.184 (0.358-3.740) uIU/mL Urine Color (YELLOW) Urine Appearance (CLEAR) Urine pH (5.0-8.0) Ur Specific [place] (1.008-1.030) Urine Protein (NEGATIVE) mg/dL Urine Glucose (UA) (NEGATIVE) mg/dL Urine Ketones (NEGATIVE) mg/dL Urine Occult Blood (NEGATIVE) Urine Nitrite (NEGATIVE) Urine Bilirubin (NEGATIVE) Urine Urobilinogen (0.2-1.0) EU/dL Ur Leukocyte Esterase (NEGATIVE) Urine RBC (0-5) Urine WBC (0-5) Ur Epithelial Cells Amorphous Sediment Urine Bacteria Urine Mucus SARS-CoV-2 RNA (INDIO) (NEGATIVE) Result Diagrams: 01/25/21 12:08 01/25/21 12:08 Sepsis Event Note - Evaluation Sepsis Screening Result: No Definite Risk - Focused Exam Vital Signs: Vital Signs Temp Pulse Resp BP Pulse Ox 01/26/21 09:30 36.0 C L 68 18 150/98 H 96 01/26/21 08:07 36.4 C 48 L 16 177/101 H 96 01/26/21 03:00 35.8 C L 74 16 149/91 H 95 - Problem List & Annotations (1) Falls frequently SNOMED Code(s): 162716210 Code(s): R29.6 - REPEATED FALLS Status: Acute Current Visit: Yes (2) NPH (normal pressure hydrocephalus) SNOMED Code(s): 07052900 Code(s): G91.2 - (IDIOPATHIC) NORMAL PRESSURE HYDROCEPHALUS Status: Suspected Current Visit: Yes (3) BPH loc w urin obs/LUTS SNOMED Code(s): 558809148 Code(s): N40.1 - BENIGN PROSTATIC HYPERPLASIA WITH LOWER URINARY TRACT SYMP Status: Chronic Current Visit: Yes (4) Chronic atrial fibrillation SNOMED Code(s): 414179912 Code(s): I48.20 - CHRONIC ATRIAL FIBRILLATION, UNSPECIFIED Status: Chronic Current Visit: Yes - Problem List Review Problem List Initiated/Reviewed/Updated: Yes - My Orders Last 24 Hours: My Active Orders 01/25/21 16:33 Resuscitation Status Routine 01/25/21 Dinner Regular Diet [DIET] 01/25/21 17:30 Acetaminophen [TylenoL] 650 mg PO Q4H PRN Docusate Sodium/Sennosides [Senna Plus] 1 tab PO BID PRN LORazepam [Ativan] 0.5 mg IVPUSH Q4H PRN Ondansetron [Zofran ODT] 4 mg PO Q6H PRN Ondansetron [Zofran] 4 mg IV Q6H PRN polyethylene glycoL 3350 [MiraLAX] 17 gm PO DAILY PRN 01/25/21 17:30 Patient Status [ADT] Routine Antiembolic Devices [RC] .Routine Intake and Output [RC] QSHIFT Notify Provider Vital Signs [RC] ASDIRECTED Oxygen Therapy [RC] .PRN Up With Assistance [RC] ASDIRECTED VTE/DVT Education [RC] Per Unit Routine Vital Signs [RC] Q4H PT Evaluation and Treatment [CONS] Routine Sequential Compression Device [OM.PC] Routine 01/25/21 21:00 Amoxicillin [Amoxil] 500 mg PO TID Melatonin 9 mg PO BEDTIME Terazosin [Hytrin] 10 mg PO BEDTIME 01/26/21 07:00 Brain wo Cont [MR] Routine 01/26/21 09:00 Propranolol [Inderal LA] 120 mg PO DAILY 01/26/21 09:57 Cardiac Monitoring Discontinue [RC] Click to Edit - Plan Plan:: ASSESSMENT AND PLAN - Repeated falls, urinary urgency and memory difficulties-concerning for NPH and he has previously been worked up for this though it was thought to be mild if present about 2 years ago. Differential would include medication side effect due to oxybutynin and/or simvastatin. TSH and sedimentation rate normal. CRP moderately elevated. -MRI of the brain today -Physical therapy evaluation -Hold oxybutynin and simvastatin -Neurology consultation Chronic atrial fibrillation-currently rate controlled with propranolol. He was on chronic anticoagulation with rivaroxaban, last dose was 01/24 in the morning. -Continue propranolol -Hold rivaroxaban in case we do need to perform a lumbar puncture or place a shunt History of bladder cancer-regularly follows with [facility]. Is not thought to have active disease and appears to be in remission. BPH with lower urinary tract symptoms-he is on 2 different medications including the oxybutynin to help with bladder issues. The oxybutynin could be contributing as discussed above. -Hold oxybutynin Maintenance issues - -DVT prophylaxis- mechanical -GI prophylaxis-not indicated -Nutrition-regular -Hernandez catheter-not indicated CODE STATUS -full code Admission justification -this patient will be admitted to observation status for expedited work-up of his recurrent falls and possible NPH Disposition -I anticipate discharge home after the hospital stay versus potentially transfer to a higher level of care Primary care physician - Leland Goldberg M.D.
[2021-01-26] MEDS ORDERED: LORazepam 1 MG Tab PO STA (11:46)
--- NOTE | 2021-01-26 13:39 | MR ---
Brain wo Cont CLINICAL HISTORY: Enlarged ventricles, gait and balance COMPARISON: CT prior day TECHNIQUE: Multiple axial, sagittal, and coronal images were obtained on a 1.5 T magnet with multiweighted sequences, FLAIR, and diffusion imaging without contrast. FINDINGS: There is no focal mass lesion. There is no hemmorhage or extraaxial collection. No restricted diffusion is identified. The basal cisterns and sulci over the convexities are prominent. The ventricles are moderately enlarged and increased in size since older study. There is some periventricular T2 signal. There are scattered punctate foci of T2 hyperintensity in the subcutaneous cortical white matter. There is no mass effect on the aqueduct. Incidental note of the small mucous retention cyst in the right maxillary sinus IMPRESSION: Moderate ventricular enlargement with some periventricular T2 hyperintensity. Normal pressure hydrocephalus is not excluded Moderate generalized atrophy Chronic ischemic microvascular changes
[2021-01-26] MEDS ORDERED: AMOXICILLIN 500 MG PO SCH (14:30)
[2021-01-26] MEDS: Melatonin 3 MG Tab PO SCH (20:36)
[2021-01-26] MEDS: Terazosin 5 MG Cap PO SCH (20:37)
[2021-01-26] MEDS ORDERED: TERAZOSIN 5 MG PO SCH (21:00)
[2021-01-27] MEDS: Amoxicillin 500 MG Cap PO SCH ×3 (09:28→20:42)
--- NOTE | 2021-01-27 16:36 | PCM.PN ---
- General Info Date of Service: 01/27/21 Subjective Update: No acute events overnight. Mild episodes of confusion. He remained quite weak this morning and had difficulty getting out of bed as well as a very slow transit from the bed to the chair. Appetite has been good. Still having urinary urgency. He did have a lumbar puncture performed earlier this afternoon with 17 mL of clear fluid removed. He rested for about an hour and a half after that and then his gait was tested. He had significant improvement in his ambulation as well as his ability to turn with a walker. He also seems to have some improvement in his cognition. I did talk to Dr. Clemente of neurosurgery at [facility] in [place] and reviewed the case. He felt that a discussion about [employer] shunt would be worthwhile if they were willing to undergo the risk. - Patient Data Vitals - Most Recent: Last Vital Signs Temp 35.9 C L 01/27/21 13:30 Pulse 55 L 01/27/21 13:30 Resp 16 01/27/21 13:30 BP 153/84 H 01/27/21 13:30 Pulse Ox 92 L 01/27/21 13:30 Orthostatic Blood Pressure [ 161/122 Sitting] Orthostatic Blood Pressure [ 164/111 Supine] Weight - Most Recent: 100.698 kg I&O - Last 24 Hours: Intake & Output 01/27/21 01/27/21 01/27/21 06:59 14:59 22:59 Intake Total 480 240 Balance 480 240 Lab Results Last 24 Hours: Laboratory Results - last 24 hr 01/27/21 01/27/21 Range/Units 12:53 12:54 CSF Tube Number 3 CSF Volume 1.5 mls CSF Appearance Clear (CLEAR) CSF Color Colorless (COLORLESS) CSF WBC 2 (0-5) /ul CSF RBC 0 (0-0) /ul CSF Mononuclear Cells 100 (54-100) % CSF Polymorphonuclear 0 (0-7) % CSF Glucose 68 (40-70) mg/dL CSF Total Protein 97.1 H (15-45) mg/dL [place]as Results Last 24 Hours: Microbiology 01/27/21 12:54 Gram Stain - Final Cerebral Spinal Fluid Med Orders - Current: Current Medications Acetaminophen (Acetaminophen 325 Mg Tab) 650 mg PO Q4H PRN PRN Reason: Pain (Mild 1-3)/fever Amoxicillin (Amoxicillin 500 Mg Cap) 500 mg PO TID [facility] Last Admin: 01/27/21 15:02 Dose: 500 mg Documented by: Lorazepam (Lorazepam 2 Mg/Ml Sdv) 0.5 mg IVPUSH Q4H PRN PRN Reason: Nausea/Vomiting Melatonin (Melatonin 3 Mg Tab) 9 mg PO BEDTIME [facility] Last Admin: 01/26/21 20:36 Dose: 9 mg Documented by: Ondansetron HCl (Ondansetron 4 Mg/2 Ml Sdv) 4 mg IV Q6H PRN PRN Reason: Nausea/Vomiting Ondansetron HCl (Ondansetron 4 Mg Tab.Dis) 4 mg PO Q6H PRN PRN Reason: Nausea able to take PO Polyethylene Glycol (Polyethylene Glycol 3350 Powder 17 Gm Packet) 17 gm PO DAILY PRN PRN Reason: Constipation Senna/Docusate Sodium (Docusate Sodium/Sennosides 50-8.6 Mg Tab) 1 tab PO BID PRN PRN Reason: Constipation Terazosin HCl (Terazosin 5 Mg Cap) 10 mg PO BEDTIME [facility] Last Admin: 01/26/21 20:37 Dose: 10 mg Documented by: Discontinued Medications Amoxicillin (Amoxicillin 500 Mg Cap) 500 mg PO TID [facility] Last Admin: 01/26/21 14:32 Dose: 500 mg Documented by: Amoxicillin (Amoxicillin 500 Mg Ptom) 500 mg PO TID [facility] Last Admin: 01/26/21 14:35 Dose: Not Given Documented by: Sodium Chloride (Normal Saline) 1,000 mls @ 999 mls/hr IV ASDIRECTED [facility] Last Admin: 01/25/21 14:10 Dose: 999 mls/hr Documented by: Lidocaine HCl (Lidocaine 2% Jelly 10 Ml Urojet) 10 ml MUCMEM ONETIME ONE Stop: 01/25/21 12:21 Last Admin: 01/25/21 12:44 Dose: 10 ml Documented by: Lorazepam (Lorazepam 1 Mg Tab) 1 mg PO ONETIME STA Stop: 01/26/21 11:47 Last Admin: 01/26/21 11:53 Dose: 1 mg Documented by: Propranolol HCl (Propranolol 60 Mg Cap.Er) 120 mg PO DAILY [facility] Last Admin: 01/26/21 10:08 Dose: 120 mg Documented by: Terazosin HCl (Terazosin 5 Mg Cap) 10 mg PO BEDTIME [facility] Last Admin: 01/25/21 20:34 Dose: 10 mg Documented by: - Exam Quality Assessment: No: Supplemental Oxygen General: Alert, Cooperative, No Acute Distress Lungs: Normal Respiratory Effort GI/Abdominal Exam: Soft, No Distention Extremities: Pedal Edema Skin: Warm, Dry Neurological: No New Focal Deficit Psy/Mental Status: Alert, Normal Affect - Patient Data Lab Results Last 24 hrs: Laboratory Results - last 24 hr 01/27/21 01/27/21 Range/Units 12:53 12:54 CSF Tube Number 3 CSF Volume 1.5 mls CSF Appearance Clear (CLEAR) CSF Color Colorless (COLORLESS) CSF WBC 2 (0-5) /ul CSF RBC 0 (0-0) /ul CSF Mononuclear Cells 100 (54-100) % CSF Polymorphonuclear 0 (0-7) % CSF Glucose 68 (40-70) mg/dL CSF Total Protein 97.1 H (15-45) mg/dL Result Diagrams: 01/25/21 12:08 01/25/21 12:08 [facility]as Results Last 24 hrs: Microbiology 01/27/21 12:54 Gram Stain - Final Cerebral Spinal Fluid Sepsis Event Note - Evaluation Sepsis Screening Result: No Definite Risk - Focused Exam Vital Signs: Vital Signs Temp Pulse Resp BP Pulse Ox 01/27/21 13:30 35.9 C L 55 L 16 153/84 H 92 L 01/27/21 08:00 35.4 C L 60 16 172/93 H 96 - Problem List & Annotations (1) Falls frequently SNOMED Code(s): 447109275 Code(s): R29.6 - REPEATED FALLS Status: Acute Current Visit: Yes (2) NPH (normal pressure hydrocephalus) SNOMED Code(s): 86476314 Code(s): G91.2 - (IDIOPATHIC) NORMAL PRESSURE HYDROCEPHALUS Status: Suspected Current Visit: Yes (3) BPH loc w urin obs/LUTS SNOMED Code(s): 604543870 Code(s): N40.1 - BENIGN PROSTATIC HYPERPLASIA WITH LOWER URINARY TRACT SYMP Status: Chronic Current Visit: Yes (4) Chronic atrial fibrillation SNOMED Code(s): 916365597 Code(s): I48.20 - CHRONIC ATRIAL FIBRILLATION, UNSPECIFIED Status: Chronic Current Visit: Yes - Problem List Review Problem List Initiated/Reviewed/Updated: Yes - My Orders Last 24 Hours: My Active Orders 01/26/21 21:00 Amoxicillin [Amoxil] 500 mg PO TID Terazosin [Hytrin] 10 mg PO BEDTIME 01/27/21 07:00 Echo Comp wo Cont [US] Routine 01/27/21 12:54 CULTURE CSF + SMEAR [] Stat - Plan Plan:: ASSESSMENT AND PLAN - Repeated falls, urinary urgency and memory difficulties-concerning for NPH and he has previously been worked up for this though it was thought to be mild if present about 2 years ago. Differential would include medication side effect due to oxybutynin and/or simvastatin. Patient appears to have responded well to lumbar puncture performed today. 17 mL of clear fluid removed. Glucose normal. Protein mildly elevated. No organisms seen. Case discussed with neurosurgery who felt that he could potentially be a candidate for shunting. -Follow-up culture from lumbar puncture -Physical therapy evaluation -Hold oxybutynin and simvastatin -Neurosurgery consultation as an outpatient, hopefully on Sunday Chronic atrial fibrillation-currently rate controlled with propranolol. He was on chronic anticoagulation with rivaroxaban, last dose was 01/24 in the morning. -Continue propranolol -Hold rivaroxaban with possibility of shunt placement in the near future Heart failure with reduced ejection fraction-patient had echo today because of lower extremity edema. He has a mildly reduced ejection fraction no significant valvular abnormalities. He has evidence for mild volume overload with a dilated inferior vena cava. -Dose of furosemide this afternoon and again in the morning History of bladder cancer-regularly follows with [facility]. Is not thought to have active disease and appears to be in remission. BPH with lower urinary tract symptoms-he is on 2 different medications including the oxybutynin to help with bladder issues. The oxybutynin could be contributing as discussed above. -Hold oxybutynin Maintenance issues - -DVT prophylaxis- mechanical -GI prophylaxis-not indicated -Nutrition-regular Admission justification -this patient was transitioned to inpatient status with a diagnosis of normal pressure hydrocephalus requiring lumbar puncture for management of symptoms. Disposition -I anticipate discharge home after the hospital stay versus potentially transfer to a higher level of care John Goldberg M.D.
[2021-01-27] MEDS ORDERED: Furosemide 40 MG Tab PO ONE (17:00)
[2021-01-27] MEDS: Melatonin 3 MG Tab PO SCH (20:42)
[2021-01-27] MEDS: Terazosin 5 MG Cap PO SCH (20:43)
--- NOTE | 2021-01-27 22:27 | ANES ---
DATE OF SERVICE: 01/27/2021 INDICATION: Mr. Fan is an 80-year-old male patient of John Goldberg MD, on our med-surg floor. Anesthesia was requested to consult patient for lumbar puncture. Upon arrival, I found a rather confused gentleman. His was there as well. I discussed with him the procedure as well as risks and benefits. They were okay to proceed and consent was received. TECHNIQUE: I had him laying in the left lateral decubitus position. Betadine prep x3 to the lumbar region. Sterile drape was placed, 1% lidocaine skin wheal as well as deep over approximately the L3-L4 region. A 25-gauge spinal needle was placed to positive CSF through an introducer needle. I measured intracranial pressure at 25 cmH2O. I then drained CSF from the manometer into #1 vial for lab study and sequentially placed approximately 2 mL in each of the #2 and #3 vials and 7 mL in the #4 vial. I then drained more CSF per request of Dr. Goldberg to a total of 17 mL. The needle was then removed. The drape was removed. His back was washed and Band-Aid over the insertion site. I placed him in a supine position. Please refer to nurse's notes for vital signs and neuro status, which were unchanged and within normal limits. I did discuss with the nurses about keeping the patient in supine position for at least 30 minutes prior to ambulation. They voiced agreement. I then reported off the procedure to the nursing staff as well as Dr. Goldberg. Obinna Feliz CRNA /[id number]
[2021-01-28] MEDS ORDERED: diphenhydrAMINE 50 MG/ML SDV IVPUSH ONE (01:57)
[2021-01-28] MEDS: Amoxicillin 500 MG Cap PO SCH ×3 (12:27→21:06)
[2021-01-28] MEDS: Furosemide 40 MG Tab PO SCH (12:27)
--- NOTE | 2021-01-28 15:56 | PCM.PN ---
- General Info Date of Service: 01/28/21 Subjective Update: No acute issues overnight. Patient did not fall asleep until around 530 this morning and slept until noon. His reports that this is his normal schedule at home. He was quite confused after he woke up. He is able to communicate but does not seem to grasp concepts when we are discussing them. He did okay following directions well moving around the room and working with his therapy folks. He says that he feels well. Vitals have been stable. - Patient Data Vitals - Most Recent: Last Vital Signs Temp 36.1 C 01/28/21 14:14 Pulse 64 01/28/21 14:14 Resp 18 01/28/21 14:14 BP 138/76 01/28/21 14:14 Pulse Ox 95 01/28/21 14:14 Orthostatic Blood Pressure [ 161/122 Sitting] Orthostatic Blood Pressure [ 164/111 Supine] Weight - Most Recent: 100.698 kg I&O - Last 24 Hours: Intake & Output 01/28/21 01/28/21 01/28/21 06:59 14:59 22:59 Intake Total 300 260 Balance 300 260 [place]as Results Last 24 Hours: Microbiology 01/27/21 12:54 Gram Stain - Final Cerebral Spinal Fluid CSF Culture - Preliminary NO GROWTH AFTER 1 DAY Med Orders - Current: Current Medications Acetaminophen (Acetaminophen 325 Mg Tab) 650 mg PO Q4H PRN PRN Reason: Pain (Mild 1-3)/fever Amoxicillin (Amoxicillin 500 Mg Cap) 500 mg PO TID [facility] Last Admin: 01/28/21 12:27 Dose: 500 mg Documented by: Furosemide (Furosemide 40 Mg Tab) 40 mg PO DAILY [facility] Last Admin: 01/28/21 12:27 Dose: 40 mg Documented by: Lorazepam (Lorazepam 2 Mg/Ml Sdv) 0.5 mg IVPUSH Q4H PRN PRN Reason: Nausea/Vomiting Melatonin (Melatonin 3 Mg Tab) 9 mg PO BEDTIME [facility] Last Admin: 01/27/21 20:42 Dose: 9 mg Documented by: Ondansetron HCl (Ondansetron 4 Mg/2 Ml Sdv) 4 mg IV Q6H PRN PRN Reason: Nausea/Vomiting Ondansetron HCl (Ondansetron 4 Mg Tab.Dis) 4 mg PO Q6H PRN PRN Reason: Nausea able to take PO Polyethylene Glycol (Polyethylene Glycol 3350 Powder 17 Gm Packet) 17 gm PO DAILY PRN PRN Reason: Constipation Senna/Docusate Sodium (Docusate Sodium/Sennosides 50-8.6 Mg Tab) 1 tab PO BID PRN PRN Reason: Constipation Terazosin HCl (Terazosin 5 Mg Cap) 10 mg PO BEDTIME [facility] Last Admin: 01/27/21 20:43 Dose: 10 mg Documented by: Discontinued Medications Amoxicillin (Amoxicillin 500 Mg Cap) 500 mg PO TID [facility] Last Admin: 01/26/21 14:32 Dose: 500 mg Documented by: Amoxicillin (Amoxicillin 500 Mg Ptom) 500 mg PO TID [facility] Last Admin: 01/26/21 14:35 Dose: Not Given Documented by: Diphenhydramine HCl (Diphenhydramine 50 Mg/Ml Sdv) 25 mg IVPUSH ONETIME ONE Stop: 01/28/21 01:58 Last Admin: 01/28/21 05:22 Dose: 25 mg Documented by: Furosemide (Furosemide 40 Mg Tab) 40 mg PO ONETIME ONE Stop: 01/27/21 17:01 Last Admin: 01/27/21 17:23 Dose: 40 mg Documented by: Sodium Chloride (Normal Saline) 1,000 mls @ 999 mls/hr IV ASDIRECTED [facility] Last Admin: 01/25/21 14:10 Dose: 999 mls/hr Documented by: Lidocaine HCl (Lidocaine 2% Jelly 10 Ml Urojet) 10 ml MUCMEM ONETIME ONE Stop: 01/25/21 12:21 Last Admin: 01/25/21 12:44 Dose: 10 ml Documented by: Lorazepam (Lorazepam 1 Mg Tab) 1 mg PO ONETIME STA Stop: 01/26/21 11:47 Last Admin: 01/26/21 11:53 Dose: 1 mg Documented by: Propranolol HCl (Propranolol 60 Mg Cap.Er) 120 mg PO DAILY [facility] Last Admin: 01/26/21 10:08 Dose: 120 mg Documented by: Terazosin HCl (Terazosin 5 Mg Cap) 10 mg PO BEDTIME [facility] Last Admin: 01/25/21 20:34 Dose: 10 mg Documented by: - Exam Quality Assessment: No: Supplemental Oxygen General: Alert, Cooperative, No Acute Distress. No: Oriented HEENT: Pupils Equal Lungs: Normal Respiratory Effort GI/Abdominal Exam: Soft, No Distention Extremities: Pedal Edema (Mild lower extremity edema from midshin distally) Skin: Warm, Dry Neurological: No New Focal Deficit Psy/Mental Status: Alert. No: Agitated - Patient Data Result Diagrams: 01/25/21 12:08 01/25/21 12:08 [place]as Results Last 24 hrs: Microbiology 01/27/21 12:54 Gram Stain - Final Cerebral Spinal Fluid CSF Culture - Preliminary NO GROWTH AFTER 1 DAY Sepsis Event Note - Evaluation Sepsis Screening Result: No Definite Risk - Focused Exam Vital Signs: Vital Signs Temp Pulse Resp BP Pulse Ox 01/28/21 14:14 36.1 C 64 18 138/76 95 01/28/21 11:00 35.7 C L 69 18 164/89 H 97 01/28/21 07:00 36.5 C 77 18 166/91 H 95 - Problem List & Annotations (1) Falls frequently SNOMED Code(s): 103308085 Code(s): R29.6 - REPEATED FALLS Status: Acute Current Visit: Yes (2) NPH (normal pressure hydrocephalus) SNOMED Code(s): 50344071 Code(s): G91.2 - (IDIOPATHIC) NORMAL PRESSURE HYDROCEPHALUS Status: Suspected Current Visit: Yes (3) BPH loc w urin obs/LUTS SNOMED Code(s): 286207680 Code(s): N40.1 - BENIGN PROSTATIC HYPERPLASIA WITH LOWER URINARY TRACT SYMP Status: Chronic Current Visit: Yes (4) Chronic atrial fibrillation SNOMED Code(s): 329773343 Code(s): I48.20 - CHRONIC ATRIAL FIBRILLATION, UNSPECIFIED Status: Chronic Current Visit: Yes - Problem List Review Problem List Initiated/Reviewed/Updated: Yes - My Orders Last 24 Hours: My Active Orders 01/28/21 09:00 Furosemide [Lasix] 40 mg PO DAILY - Plan Plan:: ASSESSMENT AND PLAN - Normal pressure hydrocephalus, suspected-repeated falls, urinary urgency and memory difficulties. Differential would include medication side effect due to oxybutynin and/or simvastatin. Patient appears to have responded well to lumbar puncture performed 01/27 with 17 mL of clear fluid removed. Glucose normal. Protein mildly elevated. No organisms seen and culture negative so far. Case discussed with neurosurgery who felt that he could potentially be a candidate for shunting as an outpatient. -Follow-up culture from lumbar puncture -Physical therapy evaluation -Hold oxybutynin and simvastatin -Neurosurgery consultation as an outpatient, hopefully on Sunday Chronic atrial fibrillation-currently rate controlled with propranolol. He was on chronic anticoagulation with rivaroxaban, last dose was 01/24 in the morning. -Continue propranolol -Hold rivaroxaban with possibility of shunt placement in the near future Heart failure with reduced ejection fraction-patient had echo 01/27 because of lower extremity edema. He has a mildly reduced ejection fraction no significant valvular abnormalities. He has evidence for mild volume overload with a dilated inferior vena cava. -Daily furosemide -Consider TYRESE inhibitor History of bladder cancer-regularly follows with [facility]. Is not thought to have active disease and appears to be in remission. BPH with lower urinary tract symptoms-he is on 2 different medications including the oxybutynin to help with bladder issues. The oxybutynin could be contributing as discussed above. -Hold oxybutynin Maintenance issues - -DVT prophylaxis- mechanical -GI prophylaxis-not indicated -Nutrition-regular Admission justification -this patient was transitioned to inpatient status with a diagnosis of normal pressure hydrocephalus requiring lumbar puncture for management of symptoms. Disposition -I anticipate discharge home versus subacute rehab after the hospital stay versus potentially transfer to a higher level of care John Goldberg M.D.
[2021-01-28] MEDS: Terazosin 5 MG Cap PO SCH (21:06)
[2021-01-28] MEDS: Melatonin 3 MG Tab PO SCH (21:06)
[2021-01-29] MEDS ORDERED: Divalproex Sodium Delayed-Release 250 MG Tab.CR PO ONE (10:56)
[2021-01-29] MEDS: Furosemide 40 MG Tab PO SCH (11:00)
[2021-01-29] MEDS: Amoxicillin 500 MG Cap PO SCH ×3 (11:00→21:34)
[2021-01-29] MEDS: Acetaminophen 325 MG Tab PO PRN ×2 (11:57→17:43)
[2021-01-29] MEDS: Divalproex Sodium Delayed-Release 125 MG Cap.Sprink PO SCH ×2 (11:57→17:33)
--- NOTE | 2021-01-29 12:11 | PCM.PN ---
- General Info Date of Service: 01/29/21 Subjective Update: No acute events overnight. Still mild to moderately confused. Still quite weak and had to assist to get up from the bed. Vital signs have been stable. No fev ers. Cultures negative. No significant behavior issues. He did sleep better last night. Functional Status: Reports: Pain Controlled, Tolerating Diet - Review of Systems General: Reports: Weakness Neurological: Reports: Confusion - Patient Data Vitals - Most Recent: Last Vital Signs Temp 37.4 C 01/29/21 10:16 Pulse 55 L 01/29/21 10:16 Resp 18 01/29/21 10:16 BP 120/85 01/29/21 07:00 Pulse Ox 93 L 01/29/21 10:16 Orthostatic Blood Pressure [ 161/122 Sitting] Orthostatic Blood Pressure [ 164/111 Supine] Weight - Most Recent: 100.698 kg I&O - Last 24 Hours: Intake & Output 01/28/21 01/29/21 01/29/21 22:59 06:59 14:59 Intake Total 800 Balance 800 Sabas Results Last 24 Hours: Microbiology 01/27/21 12:54 Gram Stain - Final Cerebral Spinal Fluid CSF Culture - Preliminary NO GROWTH AFTER 2 DAYS Med Orders - Current: Current Medications Acetaminophen (Acetaminophen 325 Mg Tab) 650 mg PO Q4H PRN PRN Reason: Pain (Mild 1-3)/fever Last Admin: 01/29/21 11:57 Dose: 650 mg Documented by: Amoxicillin (Amoxicillin 500 Mg Cap) 500 mg PO TID [facility] Last Admin: 01/29/21 11:00 Dose: 500 mg Documented by: Divalproex Sodium (Divalproex Sodium Delayed-Release 125 Mg Cap.Sprink) 125 mg PO BIDMEALS [facility] Last Admin: 01/29/21 11:57 Dose: 125 mg Documented by: Furosemide (Furosemide 40 Mg Tab) 40 mg PO DAILY [facility] Last Admin: 01/29/21 11:00 Dose: 40 mg Documented by: Lorazepam (Lorazepam 2 Mg/Ml Sdv) 0.5 mg IVPUSH Q4H PRN PRN Reason: Nausea/Vomiting Melatonin (Melatonin 3 Mg Tab) 9 mg PO BEDTIME [facility] Last Admin: 01/28/21 21:06 Dose: 9 mg Documented by: Ondansetron HCl (Ondansetron 4 Mg/2 Ml Sdv) 4 mg IV Q6H PRN PRN Reason: Nausea/Vomiting Ondansetron HCl (Ondansetron 4 Mg Tab.Dis) 4 mg PO Q6H PRN PRN Reason: Nausea able to take PO Polyethylene Glycol (Polyethylene Glycol 3350 Powder 17 Gm Packet) 17 gm PO DAILY PRN PRN Reason: Constipation Senna/Docusate Sodium (Docusate Sodium/Sennosides 50-8.6 Mg Tab) 1 tab PO BID PRN PRN Reason: Constipation Terazosin HCl (Terazosin 5 Mg Cap) 10 mg PO BEDTIME [facility] Last Admin: 01/28/21 21:06 Dose: 10 mg Documented by: Discontinued Medications Amoxicillin (Amoxicillin 500 Mg Cap) 500 mg PO TID [facility] Last Admin: 01/26/21 14:32 Dose: 500 mg Documented by: Amoxicillin (Amoxicillin 500 Mg Ptom) 500 mg PO TID [facility] Last Admin: 01/26/21 14:35 Dose: Not Given Documented by: Diphenhydramine HCl (Diphenhydramine 50 Mg/Ml Sdv) 25 mg IVPUSH ONETIME ONE Stop: 01/28/21 01:58 Last Admin: 01/28/21 05:22 Dose: 25 mg Documented by: Furosemide (Furosemide 40 Mg Tab) 40 mg PO ONETIME ONE Stop: 01/27/21 17:01 Last Admin: 01/27/21 17:23 Dose: 40 mg Documented by: Sodium Chloride (Normal Saline) 1,000 mls @ 999 mls/hr IV ASDIRECTED [facility] Last Admin: 01/25/21 14:10 Dose: 999 mls/hr Documented by: Lidocaine HCl (Lidocaine 2% Jelly 10 Ml Urojet) 10 ml MUCMEM ONETIME ONE Stop: 01/25/21 12:21 Last Admin: 01/25/21 12:44 Dose: 10 ml Documented by: Lorazepam (Lorazepam 1 Mg Tab) 1 mg PO ONETIME STA Stop: 01/26/21 11:47 Last Admin: 01/26/21 11:53 Dose: 1 mg Documented by: Propranolol HCl (Propranolol 60 Mg Cap.Er) 120 mg PO DAILY [facility] Last Admin: 01/26/21 10:08 Dose: 120 mg Documented by: Terazosin HCl (Terazosin 5 Mg Cap) 10 mg PO BEDTIME [facility] Last Admin: 01/25/21 20:34 Dose: 10 mg Documented by: - Exam Quality Assessment: No: Supplemental Oxygen General: Alert, Cooperative, No Acute Distress. No: Oriented HEENT: Pupils Equal Lungs: Normal Respiratory Effort GI/Abdominal Exam: Soft, No Distention Psy/Mental Status: Alert, Normal Affect - Patient Data Result Diagrams: 01/25/21 12:08 01/25/21 12:08 Sabas Results Last 24 hrs: Microbiology 01/27/21 12:54 Gram Stain - Final Cerebral Spinal Fluid CSF Culture - Preliminary NO GROWTH AFTER 2 DAYS Sepsis Event Note - Evaluation Sepsis Screening Result: No Definite Risk - Focused Exam Vital Signs: Vital Signs Temp Pulse Resp BP Pulse Ox 01/29/21 10:16 37.4 C 55 L 18 93 L 01/29/21 07:00 36.9 C 59 L 18 120/85 95 01/29/21 02:36 36.6 C 62 16 179/98 H 97 - Problem List & Annotations (1) NPH (normal pressure hydrocephalus) SNOMED Code(s): 21948871 Code(s): G91.2 - (IDIOPATHIC) NORMAL PRESSURE HYDROCEPHALUS Status: Suspected Current Visit: Yes (2) Falls frequently SNOMED Code(s): 937619765 Code(s): R29.6 - REPEATED FALLS Status: Acute Current Visit: Yes (3) BPH loc w urin obs/LUTS SNOMED Code(s): 179087075 Code(s): N40.1 - BENIGN PROSTATIC HYPERPLASIA WITH LOWER URINARY TRACT SYMP Status: Chronic Current Visit: Yes (4) Chronic atrial fibrillation SNOMED Code(s): 894336025 Code(s): I48.20 - CHRONIC ATRIAL FIBRILLATION, UNSPECIFIED Status: Chronic Current Visit: Yes - Problem List Review Problem List Initiated/Reviewed/Updated: Yes - My Orders Last 24 Hours: My Active Orders 01/29/21 11:00 Divalproex Sodium [Depakote Sprinkle] 125 mg PO BIDMEALS 01/29/21 12:10 Peripheral IV Discontinue [OM.PC] Routine - Plan Plan:: ASSESSMENT AND PLAN - Normal pressure hydrocephalus, suspected-repeated falls, urinary urgency and memory difficulties. Differential would include medication side effect due to oxybutynin and/or simvastatin. Patient appears to have responded well to lumbar puncture performed 01/27 with 17 mL of clear fluid removed. Glucose normal. Protein mildly elevated. No organisms seen and culture negative. Case discussed with neurosurgery who felt that he could potentially be a candidate for shunting as an outpatient. Quite weak and requiring a fair amount of assistance. Moderately confused. No significant improvement in his confusion despite stopping of the medications. -Follow-up culture from lumbar puncture -Physical therapy evaluation -Trial of Depakote to help with confusion -Hold oxybutynin and simvastatin -Neurosurgery consultation as an outpatient, hopefully on Sunday. May need to discuss possibility of inpatient transfer for the procedure if he is not able to make some progress over the weekend. Chronic atrial fibrillation-currently rate controlled with propranolol. He was on chronic anticoagulation with rivaroxaban, last dose was 01/24 in the morning. -Continue propranolol -Hold rivaroxaban with possibility of shunt placement in the near future Heart failure with reduced ejection fraction-patient had echo 01/27 because of lower extremity edema. He has a mildly reduced ejection fraction no significant valvular abnormalities. Volume status improving. -Daily furosemide -Consider TYRESE inhibitor History of bladder cancer-regularly follows with [facility]. Is not thought to have active disease and appears to be in remission. BPH with lower urinary tract symptoms-he is on 2 different medications including the oxybutynin to help with bladder issues. The oxybutynin could be contributi ng as discussed above. -Hold oxybutynin Maintenance issues - -DVT prophylaxis- mechanical -GI prophylaxis-not indicated -Nutrition-regular Admission justification -this patient was transitioned to inpatient status with a diagnosis of normal pressure hydrocephalus requiring lumbar puncture for man agement of symptoms. Disposition -I anticipate discharge home versus subacute rehab after the hosp ital stay versus potentially transfer to a higher level of care John Goldberg M.D.
[2021-01-29] MEDS ORDERED: Divalproex Sodium Delayed-Release 250 MG Tab.CR PO SCH (17:00)
[2021-01-29] MEDS: Melatonin 3 MG Tab PO SCH (21:34)
[2021-01-29] MEDS: Terazosin 5 MG Cap PO SCH (21:35)
[2021-01-30] MEDS ORDERED: Potassium Chloride 20 MEQ Tab.ER PO ONE (06:56)
[2021-01-30] MEDS: Furosemide 40 MG Tab PO SCH (09:09)
[2021-01-30] MEDS: Amoxicillin 500 MG Cap PO SCH ×3 (09:09→20:47)
[2021-01-30] MEDS: Acetaminophen 325 MG Tab PO PRN ×2 (09:09→19:42)
[2021-01-30] MEDS: Divalproex Sodium Delayed-Release 125 MG Cap.Sprink PO SCH ×2 (09:09→17:15)
--- NOTE | 2021-01-30 12:42 | PCM.PN ---
- General Info Date of Service: 01/30/21 Subjective Update: No acute events overnight. Patient remains pleasantly confused. Requiring a fair amount of assistance to get from the bed to the chair. No significant behavior issues. No fevers. No significant change in behaviors after the Depakote was started. Functional Status: Reports: Pain Controlled, Tolerating Diet - Review of Systems General: Reports: Weakness Neurological: Reports: Confusion - Patient Data Vitals - Most Recent: Last Vital Signs Temp 36.8 C 01/30/21 10:23 Pulse 79 01/30/21 10:23 Resp 18 01/30/21 10:23 BP 107/56 L 01/30/21 10:23 Pulse Ox 92 L 01/30/21 10:23 Orthostatic Blood Pressure [ 161/122 Sitting] Orthostatic Blood Pressure [ 164/111 Supine] Weight - Most Recent: 100.698 kg I&O - Last 24 Hours: Intake & Output 01/29/21 01/30/21 01/30/21 22:59 06:59 14:59 Intake Total 1240 Balance 1240 Lab Results Last 24 Hours: Laboratory Results - last 24 hr 01/30/21 Range/Units 04:20 Sodium 142 (140-148) mmol/L Potassium 3.4 L (3.6-5.2) mmol/L Chloride 105 (100-108) mmol/L Carbon Dioxide 30 (21-32) mmol/L Anion Gap 10.4 (5.0-14.0) mmol/L BUN 23 H (7-18) mg/dL Creatinine 1.0 (0.8-1.3) mg/dL Est Cr Clr Drug Dosing 66.22 mL/min Estimated GFR (MDRD) > 60 (>60) Glucose 115 H (74-106) mg/dL Calcium 8.5 (8.5-10.1) mg/dL Sabas Results Last 24 Hours: Microbiology 01/27/21 12:54 Gram Stain - Final Cerebral Spinal Fluid CSF Culture - Final NO GROWTH AFTER 3 DAYS Med Orders - Current: Current Medications Acetaminophen (Acetaminophen 325 Mg Tab) 650 mg PO Q4H PRN PRN Reason: Pain (Mild 1-3)/fever Last Admin: 01/30/21 09:09 Dose: 650 mg Documented by: Amoxicillin (Amoxicillin 500 Mg Cap) 500 mg PO TID [facility] Last Admin: 01/30/21 09:09 Dose: 500 mg Documented by: Divalproex Sodium (Divalproex Sodium Delayed-Release 125 Mg Cap.Sprink) 125 mg PO BIDMEALS [facility] Last Admin: 01/30/21 09:09 Dose: 125 mg Documented by: Furosemide (Furosemide 40 Mg Tab) 40 mg PO DAILY [facility] Last Admin: 01/30/21 09:09 Dose: 40 mg Documented by: Lorazepam (Lorazepam 2 Mg/Ml Sdv) 0.5 mg IVPUSH Q4H PRN PRN Reason: Nausea/Vomiting Melatonin (Melatonin 3 Mg Tab) 9 mg PO BEDTIME [facility] Last Admin: 01/29/21 21:34 Dose: 9 mg Documented by: Ondansetron HCl (Ondansetron 4 Mg/2 Ml Sdv) 4 mg IV Q6H PRN PRN Reason: Nausea/Vomiting Ondansetron HCl (Ondansetron 4 Mg Tab.Dis) 4 mg PO Q6H PRN PRN Reason: Nausea able to take PO Polyethylene Glycol (Polyethylene Glycol 3350 Powder 17 Gm Packet) 17 gm PO DAILY PRN PRN Reason: Constipation Senna/Docusate Sodium (Docusate Sodium/Sennosides 50-8.6 Mg Tab) 1 tab PO BID PRN PRN Reason: Constipation Terazosin HCl (Terazosin 5 Mg Cap) 10 mg PO BEDTIME [facility] Last Admin: 01/29/21 21:35 Dose: 10 mg Documented by: Discontinued Medications Amoxicillin (Amoxicillin 500 Mg Cap) 500 mg PO TID [facility] Last Admin: 01/26/21 14:32 Dose: 500 mg Documented by: Amoxicillin (Amoxicillin 500 Mg Ptom) 500 mg PO TID [facility] Last Admin: 01/26/21 14:35 Dose: Not Given Documented by: Diphenhydramine HCl (Diphenhydramine 50 Mg/Ml Sdv) 25 mg IVPUSH ONETIME ONE Stop: 01/28/21 01:58 Last Admin: 01/28/21 05:22 Dose: 25 mg Documented by: Furosemide (Furosemide 40 Mg Tab) 40 mg PO ONETIME ONE Stop: 01/27/21 17:01 Last Admin: 01/27/21 17:23 Dose: 40 mg Documented by: Sodium Chloride (Normal Saline) 1,000 mls @ 999 mls/hr IV ASDIRECTED [facility] Last Admin: 01/25/21 14:10 Dose: 999 mls/hr Documented by: Lidocaine HCl (Lidocaine 2% Jelly 10 Ml Urojet) 10 ml MUCMEM ONETIME ONE Stop: 01/25/21 12:21 Last Admin: 01/25/21 12:44 Dose: 10 ml Documented by: Lorazepam (Lorazepam 1 Mg Tab) 1 mg PO ONETIME STA Stop: 01/26/21 11:47 Last Admin: 01/26/21 11:53 Dose: 1 mg Documented by: Potassium Chloride (Potassium Chloride 20 Meq Tab.Er) 40 meq PO ONETIME ONE Stop: 01/30/21 06:57 Last Admin: 01/30/21 09:09 Dose: 40 meq Documented by: Propranolol HCl (Propranolol 60 Mg Cap.Er) 120 mg PO DAILY [facility] Last Admin: 01/26/21 10:08 Dose: 120 mg Documented by: Terazosin HCl (Terazosin 5 Mg Cap) 10 mg PO BEDTIME [facility] Last Admin: 01/25/21 20:34 Dose: 10 mg Documented by: - Exam Quality Assessment: No: Supplemental Oxygen General: Alert, Cooperative, No Acute Distress. No: Oriented Lungs: Normal Respiratory Effort. No: Wheezing GI/Abdominal Exam: Soft, No Distention Extremities: Other (left elbow ttp over the proximal radias). No: Joint Swelling (no swelling left elbow ), Increased Warmth Skin: Warm, Dry Psy/Mental Status: Alert, Normal Affect - Patient Data Lab Results Last 24 hrs: Laboratory Results - last 24 hr 01/30/21 Range/Units 04:20 Sodium 142 (140-148) mmol/L Potassium 3.4 L (3.6-5.2) mmol/L Chloride 105 (100-108) mmol/L Carbon Dioxide 30 (21-32) mmol/L Anion Gap 10.4 (5.0-14.0) mmol/L BUN 23 H (7-18) mg/dL Creatinine 1.0 (0.8-1.3) mg/dL Est Cr Clr Drug Dosing 66.22 mL/min Estimated GFR (MDRD) > 60 (>60) Glucose 115 H (74-106) mg/dL Calcium 8.5 (8.5-10.1) mg/dL Result Diagrams: 01/25/21 12:08 01/30/21 04:20 Sabas Results Last 24 hrs: Microbiology 01/27/21 12:54 Gram Stain - Final Cerebral Spinal Fluid CSF Culture - Final NO GROWTH AFTER 3 DAYS Sepsis Event Note - Evaluation Sepsis Screening Result: No Definite Risk - Focused Exam Vital Signs: Vital Signs Temp Pulse Resp BP Pulse Ox 01/30/21 10:23 36.8 C 79 18 107/56 L 92 L 01/30/21 08:59 36.8 C 87 18 135/76 94 L 01/30/21 05:00 36.8 C 77 18 144/79 H 99 - Problem List & Annotations (1) NPH (normal pressure hydrocephalus) SNOMED Code(s): 25489294 Code(s): G91.2 - (IDIOPATHIC) NORMAL PRESSURE HYDROCEPHALUS Status: Suspected Current Visit: Yes (2) Falls frequently SNOMED Code(s): 033825593 Code(s): R29.6 - REPEATED FALLS Status: Acute Current Visit: Yes (3) BPH loc w urin obs/LUTS SNOMED Code(s): 845086478 Code(s): N40.1 - BENIGN PROSTATIC HYPERPLASIA WITH LOWER URINARY TRACT SYMP Status: Chronic Current Visit: Yes (4) Chronic atrial fibrillation SNOMED Code(s): 412152101 Code(s): I48.20 - CHRONIC ATRIAL FIBRILLATION, UNSPECIFIED Status: Chronic Current Visit: Yes - Problem List Review Problem List Initiated/Reviewed/Updated: Yes - My Orders Last 24 Hours: My Active Orders 01/29/21 12:10 Peripheral IV Discontinue [OM.PC] Routine - Plan Plan:: ASSESSMENT AND PLAN - Normal pressure hydrocephalus, suspected-repeated falls, urinary urgency and memory difficulties. Differential would include medication side effect due to oxybutynin and/or simvastatin. Patient appears to have responded well to lumbar puncture performed 01/27 with 17 mL of clear fluid removed. Glucose normal. Protein mildly elevated. No organisms seen and culture negative. Case discussed with neurosurgery who felt that he could potentially be a candidate for shunting as an outpatient. Quite weak and requiring a fair amount of assistance. Moderately confused. No significant improvement in his confusion despite stopping of the medications. -Follow-up culture from lumbar puncture -Physical therapy evaluation -Trial of Depakote to help with confusion -Hold oxybutynin and simvastatin -Neurosurgery consultation as an outpatient on Sunday at 2pm if able. May need to discuss possibility of inpatient transfer for the procedure if he is not able to make some progress over the weekend. Chronic atrial fibrillation-currently rate controlled with propranolol. He was on chronic anticoagulation with rivaroxaban, last dose was 01/24 in the morning. -Continue propranolol -Hold rivaroxaban with possibility of shunt placement in the near future Heart failure with reduced ejection fraction-patient had echo 01/27 because of lower extremity edema. He has a mildly reduced ejection fraction no significant valvular abnormalities. Volume status improving. -Daily furosemide -Consider TYRESE inhibitor History of bladder cancer-regularly follows with [facility]. Is not thought to have active disease and appears to be in remission. BPH with lower urinary tract symptoms-he is on 2 different medications including the oxybutynin to help with bladder issues. The oxybutynin could be contributing as discussed above. -Hold oxybutynin Maintenance issues - -DVT prophylaxis- mechanical -GI prophylaxis-not indicated -Nutrition-regular Admission justification -this patient was transitioned to inpatient status with a diagnosis of normal pressure hydrocephalus requiring lumbar puncture for management of symptoms. Disposition -I anticipate discharge home versus subacute rehab after the hospital stay versus potentially transfer to a higher level of care John Goldberg M.D.
[2021-01-30] MEDS: Terazosin 5 MG Cap PO SCH (20:46)
[2021-01-30] MEDS: Melatonin 3 MG Tab PO SCH (20:47)
[2021-01-31] MEDS: Amoxicillin 500 MG Cap PO SCH (08:48)
[2021-01-31] MEDS: Divalproex Sodium Delayed-Release 125 MG Cap.Sprink PO SCH ×2 (08:48→18:38)
[2021-01-31] MEDS: Furosemide 40 MG Tab PO SCH (08:49)
--- NOTE | 2021-01-31 12:31 | PCM.PN ---
- General Info Date of Service: 01/31/21 Subjective Update: Mr. Meng gomez has marked difficulty with ambulation. He did improve following lumbar puncture but since then is more confused again and having marked difficulty with walking. Plan had been for him to go over to [place] as an outpatient today to meet with neurosurgery. Family is unable to get him over there, [facility] has agreed to accept him in transfer when a bed is available. Functional Status: Reports: Tolerating Diet - Review of Systems General: Reports: Weakness, Fatigue. Denies: Fever, Chills Pulmonary: Reports: No Symptoms Cardiovascular: Reports: No Symptoms Gastrointestinal: Reports: No Symptoms Neurological: Reports: Confusion, Difficulty Walking - Patient Data Vitals - Most Recent: Last Vital Signs Temp 97.9 F 01/31/21 11:00 Pulse 75 01/31/21 11:00 Resp 18 01/31/21 11:00 BP 154/69 H 01/31/21 11:00 Pulse Ox 95 01/31/21 11:00 Orthostatic Blood Pressure [ 161/122 Sitting] Orthostatic Blood Pressure [ 164/111 Supine] Weight - Most Recent: 222 lb I&O - Last 24 Hours: Intake & Output 01/30/21 01/31/21 01/31/21 22:59 06:59 14:59 Intake Total 1300 Balance 1300 Med Orders - Current: Current Medications Acetaminophen (Acetaminophen 325 Mg Tab) 650 mg PO Q4H PRN PRN Reason: Pain (Mild 1-3)/fever Last Admin: 01/30/21 19:42 Dose: 650 mg Documented by: Divalproex Sodium (Divalproex Sodium Delayed-Release 125 Mg Cap.Sprink) 125 mg PO BIDMEALS [facility] Last Admin: 01/31/21 08:48 Dose: 125 mg Documented by: Furosemide (Furosemide 40 Mg Tab) 40 mg PO DAILY [facility] Last Admin: 01/31/21 08:49 Dose: 40 mg Documented by: Lorazepam (Lorazepam 2 Mg/Ml Sdv) 0.5 mg IVPUSH Q4H PRN PRN Reason: Nausea/Vomiting Melatonin (Melatonin 3 Mg Tab) 9 mg PO BEDTIME [facility] Last Admin: 01/30/21 20:47 Dose: 9 mg Documented by: Ondansetron HCl (Ondansetron 4 Mg/2 Ml Sdv) 4 mg IV Q6H PRN PRN Reason: Nausea/Vomiting Ondansetron HCl (Ondansetron 4 Mg Tab.Dis) 4 mg PO Q6H PRN PRN Reason: Nausea able to take PO Polyethylene Glycol (Polyethylene Glycol 3350 Powder 17 Gm Packet) 17 gm PO DAILY PRN PRN Reason: Constipation Senna/Docusate Sodium (Docusate Sodium/Sennosides 50-8.6 Mg Tab) 1 tab PO BID PRN PRN Reason: Constipation Terazosin HCl (Terazosin 5 Mg Cap) 10 mg PO BEDTIME [facility] Last Admin: 01/30/21 20:46 Dose: 10 mg Documented by: Discontinued Medications Amoxicillin (Amoxicillin 500 Mg Cap) 500 mg PO TID [facility] Last Admin: 01/26/21 14:32 Dose: 500 mg Documented by: Amoxicillin (Amoxicillin 500 Mg Ptom) 500 mg PO TID [facility] Last Admin: 01/26/21 14:35 Dose: Not Given Documented by: Amoxicillin (Amoxicillin 500 Mg Cap) 500 mg PO TID [facility] Last Admin: 01/31/21 08:48 Dose: 500 mg Documented by: Diphenhydramine HCl (Diphenhydramine 50 Mg/Ml Sdv) 25 mg IVPUSH ONETIME ONE Stop: 01/28/21 01:58 Last Admin: 01/28/21 05:22 Dose: 25 mg Documented by: Furosemide (Furosemide 40 Mg Tab) 40 mg PO ONETIME ONE Stop: 01/27/21 17:01 Last Admin: 01/27/21 17:23 Dose: 40 mg Documented by: Sodium Chloride (Normal Saline) 1,000 mls @ 999 mls/hr IV ASDIRECTED [facility] Last Admin: 01/25/21 14:10 Dose: 999 mls/hr Documented by: Lidocaine HCl (Lidocaine 2% Jelly 10 Ml Urojet) 10 ml MUCMEM ONETIME ONE Stop: 01/25/21 12:21 Last Admin: 01/25/21 12:44 Dose: 10 ml Documented by: Lorazepam (Lorazepam 1 Mg Tab) 1 mg PO ONETIME STA Stop: 01/26/21 11:47 Last Admin: 01/26/21 11:53 Dose: 1 mg Documented by: Potassium Chloride (Potassium Chloride 20 Meq Tab.Er) 40 meq PO ONETIME ONE Stop: 01/30/21 06:57 Last Admin: 01/30/21 09:09 Dose: 40 meq Documented by: Propranolol HCl (Propranolol 60 Mg Cap.Er) 120 mg PO DAILY [facility] Last Admin: 01/26/21 10:08 Dose: 120 mg Documented by: Terazosin HCl (Terazosin 5 Mg Cap) 10 mg PO BEDTIME [facility] Last Admin: 01/25/21 20:34 Dose: 10 mg Documented by: - Exam General: Alert, Cooperative, Mild Distress. No: Oriented Lungs: Clear to Auscultation, Normal Respiratory Effort Cardiovascular: Regular Rate, Regular Rhythm, No Murmurs GI/Abdominal Exam: Soft, Non-Tender, No Organomegaly, No Distention Extremities: Non-Tender, No Pedal Edema - Patient Data Result Diagrams: 01/25/21 12:08 01/30/21 04:20 Sepsis Event Note - Evaluation Sepsis Screening Result: No Definite Risk - Focused Exam Vital Signs: Vital Signs Temp Pulse Resp BP Pulse Ox 01/31/21 11:00 97.9 F 75 18 154/69 H 95 01/31/21 07:00 96.9 F 72 16 136/83 96 01/31/21 05:22 96.8 F L 64 18 154/79 H 96 - Problem List Review Problem List Initiated/Reviewed/Updated: Yes - My Orders Last 24 Hours: My Active Orders 02/01/21 05:00 BASIC METABOLIC PANEL,BMP [CHEM] Timed CBC WITH AUTO DIFF [HEME] Timed - Plan Plan:: ASSESSMENT AND PLAN Normal pressure hydrocephalus, suspected-repeated falls, urinary urgency and memory difficulties. Differential would include medication side effect due to oxybutynin and/or simvastatin. Patient appears to have responded well to lumbar puncture performed 01/27 with 17 mL of clear fluid removed. Glucose normal. Protein mildly elevated. No organisms seen and culture negative. Symptoms significantly worse over the past few days after improvement from lumbar puncture. -Follow-up culture from lumbar puncture -Physical therapy evaluation -Trial of Depakote to help with confusion -Hold oxybutynin and simvastatin -Transfer to [facility] when a bed becomes available Chronic atrial fibrillation-currently rate controlled with propranolol. He was on chronic anticoagulation with rivaroxaban, last dose was 01/24 in the morning. -Continue propranolol -Hold rivaroxaban with possibility of shunt placement in the near future Heart failure with reduced ejection fraction-patient had echo 01/27 because of lower extremity edema. He has a mildly reduced ejection fraction no significant valvular abnormalities. Volume status improving. -Daily furosemide -Consider TYRESE inhibitor History of bladder cancer-regularly follows with [facility]. Is not thought to have active disease and appears to be in remission. BPH with lower urinary tract symptoms-he is on 2 different medications including the oxybutynin to help with bladder issues. The oxybutynin could be contributing as discussed above. -Hold oxybutynin Maintenance issues - -DVT prophylaxis- mechanical -GI prophylaxis-not indicated -Nutrition-regular Admission justification -this patient was transitioned to inpatient status with a diagnosis of normal pressure hydrocephalus requiring lumbar puncture for management of symptoms. Disposition -I anticipate discharge home versus subacute rehab after the hospital stay versus potentially transfer to a higher level of care
[2021-01-31] MEDS: Terazosin 5 MG Cap PO SCH (20:12)
[2021-01-31] MEDS: Melatonin 3 MG Tab PO SCH (20:12)
[2021-02-01] MEDS: Acetaminophen 325 MG Tab PO PRN ×3 (07:53→20:24)
[2021-02-01] MEDS: Divalproex Sodium Delayed-Release 125 MG Cap.Sprink PO SCH ×2 (10:04→18:09)
[2021-02-01] MEDS: Furosemide 40 MG Tab PO SCH (10:04)
--- NOTE | 2021-02-01 13:11 | PCM.PN ---
- General Info Date of Service: 02/01/21 Subjective Update: Mr. Fan seems to be weaker today, unable to transfer or ambulate. He has been accepted in transfer for shunt placement when a bed becomes available. He is confused and unable to provide meaningful information concerning recent symptoms or review of systems. - Patient Data Vitals - Most Recent: Last Vital Signs Temp 97.2 F 02/01/21 10:08 Pulse 77 02/01/21 10:08 Resp 18 02/01/21 10:08 BP 109/71 02/01/21 10:08 Pulse Ox 95 02/01/21 10:08 Orthostatic Blood Pressure [ 161/122 Sitting] Orthostatic Blood Pressure [ 164/111 Supine] Weight - Most Recent: 222 lb I&O - Last 24 Hours: Intake & Output 01/31/21 02/01/21 02/01/21 22:59 06:59 14:59 Intake Total 1000 260 Balance 1000 260 Lab Results Last 24 Hours: Laboratory Results - last 24 hr 02/01/21 02/01/21 Range/Units 05:30 05:30 WBC 7.5 (4.5-11.0) K/uL RBC 4.76 (4.30-5.90) M/uL Hgb 15.1 H (12.0-15.0) g/dL Hct 44.9 (40.0-54.0) % MCV 94 (80-98) fL MCH 32 H (27-31) pg MCHC 34 (32-36) % Plt Count 128 L (150-400) K/uL Neut % (Auto) 73.6 H (36-66) % Lymph % (Auto) 12.7 L (24-44) % [place] % (Auto) 11.3 H (2-6) % Eos % (Auto) 2.1 (2-4) % Baso % (Auto) 0.3 (0-1) % Sodium 143 (140-148) mmol/L Potassium 3.6 (3.6-5.2) mmol/L Chloride 104 (100-108) mmol/L Carbon Dioxide 27 (21-32) mmol/L Anion Gap 11.6 (5.0-14.0) mmol/L BUN 20 H (7-18) mg/dL Creatinine 0.9 (0.8-1.3) mg/dL Est Cr Clr Drug Dosing 73.57 mL/min Estimated GFR (MDRD) > 60 (>60) Glucose 97 (74-106) mg/dL Calcium 8.7 (8.5-10.1) mg/dL Med Orders - Current: Current Medications Acetaminophen (Acetaminophen 325 Mg Tab) 650 mg PO Q4H PRN PRN Reason: Pain (Mild 1-3)/fever Last Admin: 02/01/21 07:53 Dose: 650 mg Documented by: Divalproex Sodium (Divalproex Sodium Delayed-Release 125 Mg Cap.Sprink) 125 mg PO BIDMEALS [facility] Last Admin: 02/01/21 10:04 Dose: 125 mg Documented by: Furosemide (Furosemide 40 Mg Tab) 40 mg PO DAILY [facility] Last Admin: 02/01/21 10:04 Dose: 40 mg Documented by: Lorazepam (Lorazepam 2 Mg/Ml Sdv) 0.5 mg IVPUSH Q4H PRN PRN Reason: Nausea/Vomiting Melatonin (Melatonin 3 Mg Tab) 9 mg PO BEDTIME [facility] Last Admin: 01/31/21 20:12 Dose: 9 mg Documented by: Ondansetron HCl (Ondansetron 4 Mg/2 Ml Sdv) 4 mg IV Q6H PRN PRN Reason: Nausea/Vomiting Ondansetron HCl (Ondansetron 4 Mg Tab.Dis) 4 mg PO Q6H PRN PRN Reason: Nausea able to take PO Polyethylene Glycol (Polyethylene Glycol 3350 Powder 17 Gm Packet) 17 gm PO DAILY PRN PRN Reason: Constipation Senna/Docusate Sodium (Docusate Sodium/Sennosides 50-8.6 Mg Tab) 1 tab PO BID PRN PRN Reason: Constipation Terazosin HCl (Terazosin 5 Mg Cap) 10 mg PO BEDTIME [facility] Last Admin: 01/31/21 20:12 Dose: 10 mg Documented by: Discontinued Medications Amoxicillin (Amoxicillin 500 Mg Cap) 500 mg PO TID [facility] Last Admin: 01/26/21 14:32 Dose: 500 mg Documented by: Amoxicillin (Amoxicillin 500 Mg Ptom) 500 mg PO TID [facility] Last Admin: 01/26/21 14:35 Dose: Not Given Documented by: Amoxicillin (Amoxicillin 500 Mg Cap) 500 mg PO TID [facility] Last Admin: 01/31/21 08:48 Dose: 500 mg Documented by: Diphenhydramine HCl (Diphenhydramine 50 Mg/Ml Sdv) 25 mg IVPUSH ONETIME ONE Stop: 01/28/21 01:58 Last Admin: 01/28/21 05:22 Dose: 25 mg Documented by: Furosemide (Furosemide 40 Mg Tab) 40 mg PO ONETIME ONE Stop: 01/27/21 17:01 Last Admin: 01/27/21 17:23 Dose: 40 mg Documented by: Sodium Chloride (Normal Saline) 1,000 mls @ 999 mls/hr IV ASDIRECTED [facility] Last Admin: 01/25/21 14:10 Dose: 999 mls/hr Documented by: Lidocaine HCl (Lidocaine 2% Jelly 10 Ml Urojet) 10 ml MUCMEM ONETIME ONE Stop: 01/25/21 12:21 Last Admin: 01/25/21 12:44 Dose: 10 ml Documented by: Lorazepam (Lorazepam 1 Mg Tab) 1 mg PO ONETIME STA Stop: 01/26/21 11:47 Last Admin: 01/26/21 11:53 Dose: 1 mg Documented by: Potassium Chloride (Potassium Chloride 20 Meq Tab.Er) 40 meq PO ONETIME ONE Stop: 01/30/21 06:57 Last Admin: 01/30/21 09:09 Dose: 40 meq Documented by: Propranolol HCl (Propranolol 60 Mg Cap.Er) 120 mg PO DAILY [facility] Last Admin: 01/26/21 10:08 Dose: 120 mg Documented by: Terazosin HCl (Terazosin 5 Mg Cap) 10 mg PO BEDTIME [facility] Last Admin: 01/25/21 20:34 Dose: 10 mg Documented by: - Exam General: Alert, Cooperative, Mild Distress. No: Oriented Lungs: Clear to Auscultation, Normal Respiratory Effort Cardiovascular: Regular Rate, Regular Rhythm, No Murmurs GI/Abdominal Exam: Soft, Non-Tender, No Organomegaly, No Distention Extremities: Non-Tender, No Pedal Edema - Patient Data Lab Results Last 24 hrs: Laboratory Results - last 24 hr 02/01/21 02/01/21 Range/Units 05:30 05:30 WBC 7.5 (4.5-11.0) K/uL RBC 4.76 (4.30-5.90) M/uL Hgb 15.1 H (12.0-15.0) g/dL Hct 44.9 (40.0-54.0) % MCV 94 (80-98) fL MCH 32 H (27-31) pg MCHC 34 (32-36) % Plt Count 128 L (150-400) K/uL Neut % (Auto) 73.6 H (36-66) % Lymph % (Auto) 12.7 L (24-44) % [place] % (Auto) 11.3 H (2-6) % Eos % (Auto) 2.1 (2-4) % Baso % (Auto) 0.3 (0-1) % Sodium 143 (140-148) mmol/L Potassium 3.6 (3.6-5.2) mmol/L Chloride 104 (100-108) mmol/L Carbon Dioxide 27 (21-32) mmol/L Anion Gap 11.6 (5.0-14.0) mmol/L BUN 20 H (7-18) mg/dL Creatinine 0.9 (0.8-1.3) mg/dL Est Cr Clr Drug Dosing 73.57 mL/min Estimated GFR (MDRD) > 60 (>60) Glucose 97 (74-106) mg/dL Calcium 8.7 (8.5-10.1) mg/dL Result Diagrams: 02/01/21 05:30 02/01/21 05:30 Sepsis Event Note - Evaluation Sepsis Screening Result: No Definite Risk - Focused Exam Vital Signs: Vital Signs Temp Pulse Resp BP Pulse Ox 02/01/21 10:08 97.2 F 77 18 109/71 95 02/01/21 07:00 99.2 F 90 18 155/99 H 92 L 02/01/21 02:15 99.2 F 59 L 16 160/88 H 94 L - Problem List Review Problem List Initiated/Reviewed/Updated: Yes - Plan Plan:: ASSESSMENT AND PLAN Normal pressure hydrocephalus- Patient appears to have responded well to lumbar puncture performed 01/27 with 17 mL of clear fluid removed. Immediate improvement noted following lumbar puncture but he has deteriorated over the past few days. -Follow-up culture from lumbar puncture -Physical therapy evaluation -Trial of Depakote to help with confusion -Continue to hold oxybutynin and simvastatin -Transfer to [facility] when a bed becomes available for shunt placement Chronic atrial fibrillation-currently rate controlled with propranolol. He was on chronic anticoagulation with rivaroxaban, last dose was 01/24 in the morning. -Continue propranolol -Hold rivaroxaban with possibility of shunt placement in the near future Heart failure with reduced ejection fraction-patient had echo 01/27 because of lower extremity edema. He has a mildly reduced ejection fraction no significant valvular abnormalities. Volume status improving. -Daily furosemide -Consider TYRESE inhibitor History of bladder cancer-regularly follows with [facility]. Is not thought to have active disease and appears to be in remission. BPH with lower urinary tract symptoms-he is on 2 different medications including the oxybutynin to help with bladder issues. The oxybutynin could be con tributing as discussed above. -Hold oxybutynin Maintenance issues - -DVT prophylaxis- mechanical -GI prophylaxis-not indicated -Nutrition-regular Admission justification -this patient was transitioned to inpatient status with a diagnosis of normal pressure hydrocephalus requiring lumbar puncture for management of symptoms. Disposition -I anticipate discharge home versus subacute rehab after the hospital stay versus potentially transfer to a higher level of care
[2021-02-01] MEDS: Terazosin 5 MG Cap PO SCH (20:25)
[2021-02-01] MEDS: Melatonin 3 MG Tab PO SCH (20:28)
[2021-02-02] MEDS: Acetaminophen 325 MG Tab PO PRN (06:22)
[2021-02-02] MEDS: Divalproex Sodium Delayed-Release 125 MG Cap.Sprink PO SCH ×2 (08:37→17:12)
[2021-02-02] MEDS: Furosemide 40 MG Tab PO SCH (08:37)
--- NOTE | 2021-02-02 13:52 | PCM.PN ---
- General Info Date of Service: 02/02/21 Subjective Update: Mr. Meng bookers very weak and is requiring use of a lift for transfers. Awaiting transfer to tertiary care facility for shunt placement, no beds currently available. He does report pain in both knees and did have a fall over the weekend. Otherwise is fairly confused and unable to provide meaningful information concerning review of systems or recent symptoms. - Patient Data Vitals - Most Recent: Last Vital Signs Temp 97.1 F 02/02/21 12:08 Pulse 56 L 02/02/21 12:08 Resp 16 02/02/21 12:08 BP 155/81 H 02/02/21 12:08 Pulse Ox 97 02/02/21 12:08 Orthostatic Blood Pressure [ 161/122 Sitting] Orthostatic Blood Pressure [ 164/111 Supine] Weight - Most Recent: 222 lb I&O - Last 24 Hours: Intake & Output 02/01/21 02/02/21 02/02/21 22:59 06:59 14:59 Intake Total 300 300 Balance 300 300 Med Orders - Current: Current Medications Acetaminophen (Acetaminophen 325 Mg Tab) 650 mg PO Q4H PRN PRN Reason: Pain (Mild 1-3)/fever Last Admin: 02/02/21 06:22 Dose: 650 mg Documented by: Divalproex Sodium (Divalproex Sodium Delayed-Release 125 Mg Cap.Sprink) 125 mg PO BIDMEALS [facility] BEDS AT [facility] Last Admin: 02/02/21 08:37 Dose: 125 mg Documented by: Furosemide (Furosemide 40 Mg Tab) 40 mg PO DAILY [facility] 234 BEDS AT [facility] Last Admin: 02/02/21 08:37 Dose: 40 mg Documented by: Lorazepam (Lorazepam 2 Mg/Ml Sdv) 0.5 mg IVPUSH Q4H PRN PRN Reason: Nausea/Vomiting Melatonin (Melatonin 3 Mg Tab) 9 mg PO BEDTIME [facility] 234 BEDS AT [facility] Last Admin: 02/01/21 20:28 Dose: 9 mg Documented by: Ondansetron HCl (Ondansetron 4 Mg/2 Ml Sdv) 4 mg IV Q6H PRN PRN Reason: Nausea/Vomiting Ondansetron HCl (Ondansetron 4 Mg Tab.Dis) 4 mg PO Q6H PRN PRN Reason: Nausea able to take PO Polyethylene Glycol (Polyethylene Glycol 3350 Powder 17 Gm Packet) 17 gm PO DAILY PRN PRN Reason: Constipation Senna/Docusate Sodium (Docusate Sodium/Sennosides 50-8.6 Mg Tab) 1 tab PO BID PRN PRN Reason: Constipation Last Admin: 02/02/21 06:22 Dose: 1 tab Documented by: Terazosin HCl (Terazosin 5 Mg Cap) 10 mg PO BEDTIME [facility] 234 BEDS AT [facility] Last Admin: 02/01/21 20:25 Dose: 10 mg Documented by: Discontinued Medications Amoxicillin (Amoxicillin 500 Mg Cap) 500 mg PO TID [facility] 234 BEDS AT [facility] Last Admin: 01/26/21 14:32 Dose: 500 mg Documented by: Amoxicillin (Amoxicillin 500 Mg Ptom) 500 mg PO TID [facility] 234 BEDS AT [facility] Last Admin: 01/26/21 14:35 Dose: Not Given Documented by: Amoxicillin (Amoxicillin 500 Mg Cap) 500 mg PO TID [facility] 234 BEDS AT [facility] Last Admin: 01/31/21 08:48 Dose: 500 mg Documented by: Diphenhydramine HCl (Diphenhydramine 50 Mg/Ml Sdv) 25 mg IVPUSH ONETIME ONE Stop: 01/28/21 01:58 Last Admin: 01/28/21 05:22 Dose: 25 mg Documented by: Furosemide (Furosemide 40 Mg Tab) 40 mg PO ONETIME ONE Stop: 01/27/21 17:01 Last Admin: 01/27/21 17:23 Dose: 40 mg Documented by: Sodium Chloride (Normal Saline) 1,000 mls @ 999 mls/hr IV ASDIRECTED [facility]S INCLUDE 234 BEDS AT [facility] Last Admin: 01/25/21 14:10 Dose: 999 mls/hr Documented by: Lidocaine HCl (Lidocaine 2% Jelly 10 Ml Urojet) 10 ml MUCMEM ONETIME ONE Stop: 01/25/21 12:21 Last Admin: 01/25/21 12:44 Dose: 10 ml Documented by: Lorazepam (Lorazepam 1 Mg Tab) 1 mg PO ONETIME STA Stop: 01/26/21 11:47 Last Admin: 01/26/21 11:53 Dose: 1 mg Documented by: Potassium Chloride (Potassium Chloride 20 Meq Tab.Er) 40 meq PO ONETIME ONE Stop: 01/30/21 06:57 Last Admin: 01/30/21 09:09 Dose: 40 meq Documented by: Propranolol HCl (Propranolol 60 Mg Cap.Er) 120 mg PO DAILY [facility] 234 BEDS AT [facility] Last Admin: 01/26/21 10:08 Dose: 120 mg Documented by: Terazosin HCl (Terazosin 5 Mg Cap) 10 mg PO BEDTIME [facility] Last Admin: 01/25/21 20:34 Dose: 10 mg Documented by: - Exam Quality Assessment: DVT Prophylaxis General: Alert, Cooperative, Mild Distress. No: Oriented Lungs: Clear to Auscultation, Normal Respiratory Effort Cardiovascular: Regular Rate, Regular Rhythm, No Murmurs GI/Abdominal Exam: Soft, Non-Tender, No Organomegaly, No Distention Extremities: Other (Pain both knees) Skin: Warm, Dry, Intact - Patient Data Result Diagrams: 02/01/21 05:30 02/01/21 05:30 Sepsis Event Note - Evaluation Sepsis Screening Result: No Definite Risk - Focused Exam Vital Signs: Vital Signs Temp Pulse Resp BP Pulse Ox 02/02/21 12:08 97.1 F 56 L 16 155/81 H 97 02/02/21 07:24 97.6 F 83 16 126/79 94 L 02/02/21 03:00 96.5 F L 71 16 129/67 95 - Problem List Review Problem List Initiated/Reviewed/Updated: Yes - My Orders Last 24 Hours: My Active Orders 02/02/21 12:18 Knee 3V Bi [CR] Urgent - Plan Plan:: ASSESSMENT AND PLAN Normal pressure hydrocephalus- Patient appears to have responded well to lumbar puncture performed 01/27 with 17 mL of clear fluid removed. Immediate improvement noted following lumbar puncture but he has deteriorated over the past few days and is unable to ambulate or transfer. Cultures from lumbar puncture remain negative -Physical therapy evaluation -Depakote to help with confusion -Continue to hold oxybutynin and simvastatin -Transfer to [facility] when a bed becomes available for shunt placement Chronic atrial fibrillation-currently rate controlled with propranolol. He was on chronic anticoagulation with rivaroxaban, last dose was 01/24 in the morning. -Continue propranolol -Hold rivaroxaban with possibility of shunt placement in the near future Heart failure with reduced ejection fraction-patient had echo 01/27 because of lower extremity edema. He has a mildly reduced ejection fraction no significant valvular abnormalities. Volume status improving. -Daily furosemide -Consider TYRESE inhibitor History of bladder cancer-regularly follows with [facility]. Is not thought to have active disease and appears to be in remission. BPH with lower urinary tract symptoms-he is on 2 different medications including the oxybutynin to help with bladder issues. The oxybutynin could be contributing as discussed above. -Hold oxybutynin Maintenance issues - -DVT prophylaxis- mechanical -GI prophylaxis-not indicated -Nutrition-regular Admission justification -this patient was transitioned to inpatient status with a diagnosis of normal pressure hydrocephalus requiring lumbar puncture for management of symptoms. Disposition -I anticipate transfer for shunt placement
--- NOTE | 2021-02-02 15:05 | CR ---
Knee 3V Bi CLINICAL HISTORY: Pain, fall FINDINGS: There is moderate medial joint space narrowing bilaterally. There is prominence of the intercondylar eminence bilaterally. There is periarticular and patellar spurring. There is a moderate left joint effusion and small right effusion. Impression: Moderate osteophytic change Bilateral joint effusions
[2021-02-02] MEDS: Terazosin 5 MG Cap PO SCH (20:26)
[2021-02-02] MEDS: Melatonin 3 MG Tab PO SCH (20:26)
[2021-02-03] MEDS: Furosemide 40 MG Tab PO SCH (08:24)
[2021-02-03] MEDS: Divalproex Sodium Delayed-Release 125 MG Cap.Sprink PO SCH ×2 (08:24→18:10)
[2021-02-03] MEDS ORDERED: Furosemide 40 MG/4 ML VIAL IVPUSH ONE (13:59)
[2021-02-03] MEDS ORDERED: Sodium Chloride 0.9% 10 ML Syringe FLUSH PRN (15:48)
[2021-02-03] MEDS ORDERED: Furosemide 20 MG/2 ML VIAL IVPUSH ONE (16:00)
[2021-02-03] MEDS: methylPREDNISolone Sodium Succinate 40 MG/1 ML SDV IVPUSH SCH (16:03)
--- NOTE | 2021-02-03 17:59 | PCM.PN ---
- General Info Date of Service: 02/03/21 Subjective Update: Mr. Fan remains very debilitated, unable to transfer or ambulate. He is confused and unable to provide meaningful information concerning recent symptoms or review of systems. - Patient Data Vitals - Most Recent: Last Vital Signs Temp 97.9 F 02/03/21 11:05 Pulse 74 02/03/21 11:05 Resp 16 02/03/21 11:05 BP 126/69 02/03/21 11:05 Pulse Ox 97 02/03/21 11:05 Orthostatic Blood Pressure [ 161/122 Sitting] Orthostatic Blood Pressure [ 164/111 Supine] Weight - Most Recent: 222 lb I&O - Last 24 Hours: Intake & Output 02/03/21 02/03/21 02/03/21 06:59 14:59 22:59 Intake Total 420 Balance 420 Med Orders - Current: Current Medications Acetaminophen (Acetaminophen 325 Mg Tab) 650 mg PO Q4H PRN PRN Reason: Pain (Mild 1-3)/fever Last Admin: 02/02/21 06:22 Dose: 650 mg Documented by: Divalproex Sodium (Divalproex Sodium Delayed-Release 125 Mg Cap.Sprink) 125 mg PO BIDMEALS [facility] Last Admin: 02/03/21 08:24 Dose: 125 mg Documented by: Furosemide (Furosemide 40 Mg Tab) 40 mg PO DAILY [facility] Last Admin: 02/03/21 08:24 Dose: 40 mg Documented by: Lorazepam (Lorazepam 2 Mg/Ml Sdv) 0.5 mg IVPUSH Q4H PRN PRN Reason: Nausea/Vomiting Melatonin (Melatonin 3 Mg Tab) 9 mg PO BEDTIME [facility] Last Admin: 02/02/21 20:26 Dose: 9 mg Documented by: Methylprednisolone Sodium Succinate (Methylprednisolone Sodium Succinate 40 Mg/1 Ml Sdv) 40 mg IVPUSH DAILY [facility] Last Admin: 02/03/21 16:03 Dose: 40 mg Documented by: Ondansetron HCl (Ondansetron 4 Mg/2 Ml Sdv) 4 mg IV Q6H PRN PRN Reason: Nausea/Vomiting Ondansetron HCl (Ondansetron 4 Mg Tab.Dis) 4 mg PO Q6H PRN PRN Reason: Nausea able to take PO Polyethylene Glycol (Polyethylene Glycol 3350 Powder 17 Gm Packet) 17 gm PO DAILY PRN PRN Reason: Constipation Senna/Docusate Sodium (Docusate Sodium/Sennosides 50-8.6 Mg Tab) 1 tab PO BID PRN PRN Reason: Constipation Last Admin: 02/02/21 06:22 Dose: 1 tab Documented by: Sodium Chloride (Sodium Chloride 0.9% 10 Ml Syringe) 10 ml FLUSH ASDIRECTED PRN PRN Reason: Keep Vein Open Terazosin HCl (Terazosin 5 Mg Cap) 10 mg PO BEDTIME [facility] Last Admin: 02/02/21 20:26 Dose: 10 mg Documented by: Discontinued Medications Amoxicillin (Amoxicillin 500 Mg Cap) 500 mg PO TID [facility] Last Admin: 01/26/21 14:32 Dose: 500 mg Documented by: Amoxicillin (Amoxicillin 500 Mg Ptom) 500 mg PO TID [facility] Last Admin: 01/26/21 14:35 Dose: Not Given Documented by: Amoxicillin (Amoxicillin 500 Mg Cap) 500 mg PO TID [facility] Last Admin: 01/31/21 08:48 Dose: 500 mg Documented by: Diphenhydramine HCl (Diphenhydramine 50 Mg/Ml Sdv) 25 mg IVPUSH ONETIME ONE Stop: 01/28/21 01:58 Last Admin: 01/28/21 05:22 Dose: 25 mg Documented by: Furosemide (Furosemide 40 Mg Tab) 40 mg PO ONETIME ONE Stop: 01/27/21 17:01 Last Admin: 01/27/21 17:23 Dose: 40 mg Documented by: Furosemide (Furosemide 40 Mg/4 Ml Vial) 20 mg IVPUSH NOW ONE Stop: 02/03/21 14:00 Last Admin: 02/03/21 17:04 Dose: Not Given Documented by: Furosemide (Furosemide 20 Mg/2 Ml Vial) 20 mg IVPUSH NOW ONE Stop: 02/03/21 16:01 Last Admin: 02/03/21 16:10 Dose: 20 mg Documented by: Sodium Chloride (Normal Saline) 1,000 mls @ 999 mls/hr IV ASDIRECTED [facility] Last Admin: 01/25/21 14:10 Dose: 999 mls/hr Documented by: Lidocaine HCl (Lidocaine 2% Jelly 10 Ml Urojet) 10 ml MUCMEM ONETIME ONE Stop: 01/25/21 12:21 Last Admin: 01/25/21 12:44 Dose: 10 ml Documented by: Lorazepam (Lorazepam 1 Mg Tab) 1 mg PO ONETIME STA Stop: 01/26/21 11:47 Last Admin: 01/26/21 11:53 Dose: 1 mg Documented by: Potassium Chloride (Potassium Chloride 20 Meq Tab.Er) 40 meq PO ONETIME ONE Stop: 01/30/21 06:57 Last Admin: 01/30/21 09:09 Dose: 40 meq Documented by: Propranolol HCl (Propranolol 60 Mg Cap.Er) 120 mg PO DAILY [facility] Last Admin: 01/26/21 10:08 Dose: 120 mg Documented by: Terazosin HCl (Terazosin 5 Mg Cap) 10 mg PO BEDTIME [facility] Last Admin: 01/25/21 20:34 Dose: 10 mg Documented by: - Exam Quality Assessment: DVT Prophylaxis General: Alert, Cooperative, Mild Distress. No: Oriented Lungs: Clear to Auscultation, Normal Respiratory Effort Cardiovascular: Regular Rate, Regular Rhythm, No Murmurs GI/Abdominal Exam: Soft, Non-Tender, No Organomegaly, No Distention Extremities: Non-Tender, Pedal Edema - Patient Data Result Diagrams: 02/01/21 05:30 02/01/21 05:30 Sepsis Event Note - Evaluation Sepsis Screening Result: No Definite Risk - Focused Exam Vital Signs: Vital Signs Temp Pulse Resp BP Pulse Ox 02/03/21 11:05 97.9 F 74 16 126/69 97 02/03/21 07:16 97.5 F 61 16 149/90 H 97 - Problem List Review Problem List Initiated/Reviewed/Updated: Yes - My Orders Last 24 Hours: My Active Orders 02/03/21 14:00 methylPREDNISolone Sod Succ [Solu-MEDROL] 40 mg IVPUSH DAILY 02/03/21 15:48 Peripheral IV Care [RC] . DIRECTED Sodium Chloride 0.9% [Saline Flush] 10 ml FLUSH ASDIRECTED PRN Peripheral IV Insertion Adult [OM.PC] Routine 02/04/21 05:00 BASIC METABOLIC PANEL,BMP [CHEM] Timed CBC WITH AUTO DIFF [HEME] Timed - Plan Plan:: ASSESSMENT AND PLAN Normal pressure hydrocephalus- Patient appears to have responded well to lumbar puncture performed 01/27 with 17 mL of clear fluid removed. Immediate improvement noted following lumbar puncture but he has deteriorated over the past several days and is unable to ambulate or transfer. Cultures from lumbar puncture remain negative -Physical therapy evaluation -Depakote to help with confusion -Continue to hold oxybutynin and simvastatin -Transfer when a bed becomes available for shunt placement Chronic atrial fibrillation-currently rate controlled with propranolol. He was on chronic anticoagulation with rivaroxaban, last dose was 01/24 in the morning. -Continue propranolol -Hold rivaroxaban with possibility of shunt placement in the near future Heart failure with reduced ejection fraction-patient had echo 01/27 because of lower extremity edema. He has a mildly reduced ejection fraction no significant valvular abnormalities. Continues to experience peripheral edema -Increase furosemide to twice daily History of bladder cancer-regularly follows with [facility]. Is not thought to have active disease and appears to be in remission. BPH with lower urinary tract symptoms-he is on 2 different medications including the oxybutynin to help with bladder issues. The oxybutynin could be contributing as discussed above. -Hold oxybutynin Bilateral knee pain-pain apparently increased following his fall at home. X- rays obtained yesterday showed no obvious fracture but do document underlying osteoarthritis -Limited course of Solu-Medrol 40 mg daily Maintenance issues - -DVT prophylaxis- mechanical -GI prophylaxis-not indicated -Nutrition-regular Admission justification -this patient was transitioned to inpatient status with a diagnosis of normal pressure hydrocephalus requiring lumbar puncture for management of symptoms. Disposition -I anticipate transfer for shunt placement
[2021-02-03] MEDS: Terazosin 5 MG Cap PO SCH (20:34)
[2021-02-03] MEDS: Melatonin 3 MG Tab PO SCH (20:34)
[2021-02-04] MEDS: Divalproex Sodium Delayed-Release 125 MG Cap.Sprink PO SCH ×2 (07:59→17:02)
[2021-02-04] MEDS: Furosemide 40 MG Tab PO SCH (07:59)
[2021-02-04] MEDS: methylPREDNISolone Sodium Succinate 40 MG/1 ML SDV IVPUSH SCH (08:04)
--- NOTE | 2021-02-04 16:35 | PCM.PN ---
- General Info Date of Service: 02/04/21 Subjective Update: Mr. Fan continues to require use of a lift for transfers and he is unable to ambulate. He also continues to experience significant confusion and is unable to provide meaningful information concerning symptoms or review of systems. Still awaiting transfer for shunt placement. Current plan is for transfer on February 07 for shunt placement on February 08. - Patient Data Vitals - Most Recent: Last Vital Signs Temp 96.2 F L 02/04/21 14:11 Pulse 76 02/04/21 14:11 Resp 16 02/04/21 14:11 BP 141/75 H 02/04/21 14:11 Pulse Ox 94 L 02/04/21 14:11 Orthostatic Blood Pressure [ 161/122 Sitting] Orthostatic Blood Pressure [ 164/111 Supine] Weight - Most Recent: 222 lb I&O - Last 24 Hours: Intake & Output 02/04/21 02/04/21 02/04/21 06:59 14:59 22:59 Intake Total 750 Balance 750 Lab Results Last 24 Hours: Laboratory Results - last 24 hr 02/04/21 02/04/21 Range/Units 05:49 05:49 WBC 6.2 (4.5-11.0) K/uL RBC 4.76 (4.30-5.90) M/uL Hgb 14.7 (12.0-15.0) g/dL Hct 44.3 (40.0-54.0) % MCV 93 (80-98) fL MCH 31 (27-31) pg MCHC 33 (32-36) % Plt Count 172 (150-400) K/uL Neut % (Auto) 83.3 H (36-66) % Lymph % (Auto) 9.0 L (24-44) % Assumption % (Auto) 7.7 H (2-6) % Eos % (Auto) 0.0 L (2-4) % Baso % (Auto) 0.0 (0-1) % Sodium 143 (140-148) mmol/L Potassium 3.8 (3.6-5.2) mmol/L Chloride 105 (100-108) mmol/L Carbon Dioxide 29 (21-32) mmol/L Anion Gap 9.2 (5.0-14.0) mmol/L BUN 22 H (7-18) mg/dL Creatinine 1.0 (0.8-1.3) mg/dL Est Cr Clr Drug Dosing 66.22 mL/min Estimated GFR (MDRD) > 60 (>60) Glucose 155 H (74-106) mg/dL Calcium 8.7 (8.5-10.1) mg/dL Med Orders - Current: Current Medications Acetaminophen (Acetaminophen 325 Mg Tab) 650 mg PO Q4H PRN PRN Reason: Pain (Mild 1-3)/fever Last Admin: 02/02/21 06:22 Dose: 650 mg Documented by: Divalproex Sodium (Divalproex Sodium Delayed-Release 125 Mg Cap.Sprink) 125 mg PO BIDMEALS [facility] Last Admin: 02/04/21 07:59 Dose: 125 mg Documented by: Furosemide (Furosemide 40 Mg Tab) 40 mg PO DAILY [facility] Last Admin: 02/04/21 07:59 Dose: 40 mg Documented by: Furosemide (Furosemide 40 Mg/4 Ml Vial) 20 mg IVPUSH NOW ONE Stop: 02/04/21 16:29 Lorazepam (Lorazepam 2 Mg/Ml Sdv) 0.5 mg IVPUSH Q4H PRN PRN Reason: Nausea/Vomiting Melatonin (Melatonin 3 Mg Tab) 9 mg PO BEDTIME [facility] Last Admin: 02/03/21 20:34 Dose: 9 mg Documented by: Methylprednisolone Sodium Succinate (Methylprednisolone Sodium Succinate 40 Mg/1 Ml Sdv) 40 mg IVPUSH DAILY [facility] Stop: 02/05/21 16:00 Last Admin: 02/04/21 08:04 Dose: 40 mg Documented by: Ondansetron HCl (Ondansetron 4 Mg/2 Ml Sdv) 4 mg IV Q6H PRN PRN Reason: Nausea/Vomiting Ondansetron HCl (Ondansetron 4 Mg Tab.Dis) 4 mg PO Q6H PRN PRN Reason: Nausea able to take PO Polyethylene Glycol (Polyethylene Glycol 3350 Powder 17 Gm Packet) 17 gm PO DAILY PRN PRN Reason: Constipation Senna/Docusate Sodium (Docusate Sodium/Sennosides 50-8.6 Mg Tab) 1 tab PO BID PRN PRN Reason: Constipation Last Admin: 02/02/21 06:22 Dose: 1 tab Documented by: Sodium Chloride (Sodium Chloride 0.9% 10 Ml Syringe) 10 ml FLUSH ASDIRECTED PRN PRN Reason: Keep Vein Open Terazosin HCl (Terazosin 5 Mg Cap) 10 mg PO BEDTIME [facility] Last Admin: 02/03/21 20:34 Dose: 10 mg Documented by: Discontinued Medications Amoxicillin (Amoxicillin 500 Mg Cap) 500 mg PO TID [facility] Last Admin: 01/26/21 14:32 Dose: 500 mg Documented by: Amoxicillin (Amoxicillin 500 Mg Ptom) 500 mg PO TID [facility] Last Admin: 01/26/21 14:35 Dose: Not Given Documented by: Amoxicillin (Amoxicillin 500 Mg Cap) 500 mg PO TID [facility] Last Admin: 01/31/21 08:48 Dose: 500 mg Documented by: Diphenhydramine HCl (Diphenhydramine 50 Mg/Ml Sdv) 25 mg IVPUSH ONETIME ONE Stop: 01/28/21 01:58 Last Admin: 01/28/21 05:22 Dose: 25 mg Documented by: Furosemide (Furosemide 40 Mg Tab) 40 mg PO ONETIME ONE Stop: 01/27/21 17:01 Last Admin: 01/27/21 17:23 Dose: 40 mg Documented by: Furosemide (Furosemide 40 Mg/4 Ml Vial) 20 mg IVPUSH NOW ONE Stop: 02/03/21 14:00 Last Admin: 02/03/21 17:04 Dose: Not Given Documented by: Furosemide (Furosemide 20 Mg/2 Ml Vial) 20 mg IVPUSH NOW ONE Stop: 02/03/21 16:01 Last Admin: 02/03/21 16:10 Dose: 20 mg Documented by: Sodium Chloride (Normal Saline) 1,000 mls @ 999 mls/hr IV ASDIRECTED [facility] Last Admin: 01/25/21 14:10 Dose: 999 mls/hr Documented by: Lidocaine HCl (Lidocaine 2% Jelly 10 Ml Urojet) 10 ml MUCMEM ONETIME ONE Stop: 01/25/21 12:21 Last Admin: 01/25/21 12:44 Dose: 10 ml Documented by: Lorazepam (Lorazepam 1 Mg Tab) 1 mg PO ONETIME STA Stop: 01/26/21 11:47 Last Admin: 01/26/21 11:53 Dose: 1 mg Documented by: Potassium Chloride (Potassium Chloride 20 Meq Tab.Er) 40 meq PO ONETIME ONE Stop: 01/30/21 06:57 Last Admin: 01/30/21 09:09 Dose: 40 meq Documented by: Propranolol HCl (Propranolol 60 Mg Cap.Er) 120 mg PO DAILY [facility] Last Admin: 01/26/21 10:08 Dose: 120 mg Documented by: Terazosin HCl (Terazosin 5 Mg Cap) 10 mg PO BEDTIME [facility] Last Admin: 01/25/21 20:34 Dose: 10 mg Documented by: - Exam General: Alert, Cooperative, Mild Distress. No: Oriented Lungs: Clear to Auscultation, Normal Respiratory Effort, Decreased Breath Sounds Cardiovascular: Regular Rate, Regular Rhythm, No Murmurs GI/Abdominal Exam: Soft, Non-Tender, No Organomegaly, No Distention Extremities: Non-Tender, Pedal Edema - Patient Data Lab Results Last 24 hrs: Laboratory Results - last 24 hr 02/04/21 02/04/21 Range/Units 05:49 05:49 WBC 6.2 (4.5-11.0) K/uL RBC 4.76 (4.30-5.90) M/uL Hgb 14.7 (12.0-15.0) g/dL Hct 44.3 (40.0-54.0) % MCV 93 (80-98) fL MCH 31 (27-31) pg MCHC 33 (32-36) % Plt Count 172 (150-400) K/uL Neut % (Auto) 83.3 H (36-66) % Lymph % (Auto) 9.0 L (24-44) % Assumption % (Auto) 7.7 H (2-6) % Eos % (Auto) 0.0 L (2-4) % Baso % (Auto) 0.0 (0-1) % Sodium 143 (140-148) mmol/L Potassium 3.8 (3.6-5.2) mmol/L Chloride 105 (100-108) mmol/L Carbon Dioxide 29 (21-32) mmol/L Anion Gap 9.2 (5.0-14.0) mmol/L BUN 22 H (7-18) mg/dL Creatinine 1.0 (0.8-1.3) mg/dL Est Cr Clr Drug Dosing 66.22 mL/min Estimated GFR (MDRD) > 60 (>60) Glucose 155 H (74-106) mg/dL Calcium 8.7 (8.5-10.1) mg/dL Result Diagrams: 02/04/21 05:49 02/04/21 05:49 Sepsis Event Note - Evaluation Sepsis Screening Result: No Definite Risk - Focused Exam Vital Signs: Vital Signs Temp Temp Pulse Resp BP Pulse Ox 02/04/21 14:11 96.2 F L 76 16 141/75 H 94 L 02/04/21 11:00 96.7 F L 55 L 16 126/77 93 L 02/04/21 07:56 95.9 F L 79 18 118/76 95 - Problem List Review Problem List Initiated/Reviewed/Updated: Yes - My Orders Last 24 Hours: My Active Orders 02/03/21 15:48 Peripheral IV Care [RC] . DIRECTED Sodium Chloride 0.9% [Saline Flush] 10 ml FLUSH ASDIRECTED PRN Peripheral IV Insertion Adult [OM.PC] Routine 02/04/21 16:28 Furosemide [Lasix] 20 mg IVPUSH NOW ONE 02/05/21 05:11 POTASSIUM,K [CHEM] AM - Plan Plan:: ASSESSMENT AND PLAN Normal pressure hydrocephalus- Patient appears to have responded well to lumbar puncture performed 01/27 with 17 mL of clear fluid removed. Immediate improvement noted following lumbar puncture but he has deteriorated over the past several days and is unable to ambulate or transfer. Cultures from lumbar puncture remain negative -Physical therapy evaluation -Depakote to help with confusion -Continue to hold oxybutynin and simvastatin -Transfer when a bed becomes available for shunt placement Chronic atrial fibrillation-currently rate controlled with propranolol. He was on chronic anticoagulation with rivaroxaban, last dose was 01/24 in the morning. -Continue propranolol -Hold rivaroxaban with possibility of shunt placement in the near future Heart failure with reduced ejection fraction-patient had echo 01/27 because of lower extremity edema. He has a mildly reduced ejection fraction no significant valvular abnormalities. Continues to experience peripheral edema -Increase furosemide to twice daily History of bladder cancer-regularly follows with [facility]. Is not thought to have active disease and appears to be in remission. BPH with lower urinary tract symptoms-he is on 2 different medications including the oxybutynin to help with bladder issues. The oxybutynin could be contributing as discussed above. -Hold oxybutynin Bilateral knee pain-pain apparently increased following his fall at home. X- rays showed no obvious fracture but do document underlying osteoarthritis -Limited course of Solu-Medrol 40 mg daily, discontinue after dose tomorrow Maintenance issues - -DVT prophylaxis- mechanical -GI prophylaxis-not indicated -Nutrition-regular Admission justification -this patient was transitioned to inpatient status with a diagnosis of normal pressure hydrocephalus requiring lumbar puncture for management of symptoms. Disposition -I anticipate transfer for shunt placement
[2021-02-04] MEDS ORDERED: Furosemide 20 MG/2 ML VIAL IVPUSH ONE (16:45)
[2021-02-04] MEDS: Melatonin 3 MG Tab PO SCH (20:32)
[2021-02-04] MEDS: Terazosin 5 MG Cap PO SCH (20:32)
[2021-02-05] MEDS: methylPREDNISolone Sodium Succinate 40 MG/1 ML SDV IVPUSH SCH (08:23)
[2021-02-05] MEDS: Furosemide 40 MG Tab PO SCH (08:23)
[2021-02-05] MEDS: Divalproex Sodium Delayed-Release 125 MG Cap.Sprink PO SCH ×2 (08:24→17:05)
[2021-02-05] MEDS ORDERED: Potassium Chloride 20 MEQ Tab.ER PO ONE ×2 (09:30→17:00)
--- NOTE | 2021-02-05 11:03 | PCM.PN ---
- General Info Date of Service: 02/05/21 Subjective Update: Mr. Fan has been stable since yesterday. He remains confused and is unable to provide meaningful information concerning recent symptoms or review of systems. Peripheral edema does appear to be slowly improving with diuresis. - Patient Data Vitals - Most Recent: Last Vital Signs Temp 96.6 F L 02/05/21 10:49 Pulse 70 02/05/21 10:49 Resp 16 02/05/21 10:49 BP 139/69 02/05/21 10:49 Pulse Ox 95 02/05/21 10:49 Orthostatic Blood Pressure [ 161/122 Sitting] Orthostatic Blood Pressure [ 164/111 Supine] Weight - Most Recent: 222 lb I&O - Last 24 Hours: Intake & Output 02/04/21 02/05/21 02/05/21 22:59 06:59 14:59 Intake Total 800 700 Balance 800 700 Lab Results Last 24 Hours: Laboratory Results - last 24 hr 02/05/21 Range/Units 04:20 Potassium 3.4 L (3.6-5.2) mmol/L Med Orders - Current: Current Medications Acetaminophen (Acetaminophen 325 Mg Tab) 650 mg PO Q4H PRN PRN Reason: Pain (Mild 1-3)/fever Last Admin: 02/02/21 06:22 Dose: 650 mg Documented by: Divalproex Sodium (Divalproex Sodium Delayed-Release 125 Mg Cap.Sprink) 125 mg PO BIDMEALS [facility] Last Admin: 02/05/21 08:24 Dose: 125 mg Documented by: Furosemide (Furosemide 40 Mg Tab) 40 mg PO DAILY [facility] Last Admin: 02/05/21 08:23 Dose: 40 mg Documented by: Lorazepam (Lorazepam 2 Mg/Ml Sdv) 0.5 mg IVPUSH Q4H PRN PRN Reason: Nausea/Vomiting Melatonin (Melatonin 3 Mg Tab) 9 mg PO BEDTIME [facility] Last Admin: 02/04/21 20:32 Dose: 9 mg Documented by: Methylprednisolone Sodium Succinate (Methylprednisolone Sodium Succinate 40 Mg/1 Ml Sdv) 40 mg IVPUSH DAILY [facility] Stop: 02/05/21 16:00 Last Admin: 02/05/21 08:23 Dose: 40 mg Documented by: Ondansetron HCl (Ondansetron 4 Mg/2 Ml Sdv) 4 mg IV Q6H PRN PRN Reason: Nausea/Vomiting Ondansetron HCl (Ondansetron 4 Mg Tab.Dis) 4 mg PO Q6H PRN PRN Reason: Nausea able to take PO Polyethylene Glycol (Polyethylene Glycol 3350 Powder 17 Gm Packet) 17 gm PO DAILY PRN PRN Reason: Constipation Senna/Docusate Sodium (Docusate Sodium/Sennosides 50-8.6 Mg Tab) 1 tab PO BID PRN PRN Reason: Constipation Last Admin: 02/02/21 06:22 Dose: 1 tab Documented by: Sodium Chloride (Sodium Chloride 0.9% 10 Ml Syringe) 10 ml FLUSH ASDIRECTED PRN PRN Reason: Keep Vein Open Terazosin HCl (Terazosin 5 Mg Cap) 10 mg PO BEDTIME [facility] Last Admin: 02/04/21 20:32 Dose: 10 mg Documented by: Discontinued Medications Amoxicillin (Amoxicillin 500 Mg Cap) 500 mg PO TID [facility] Last Admin: 01/26/21 14:32 Dose: 500 mg Documented by: Amoxicillin (Amoxicillin 500 Mg Ptom) 500 mg PO TID [facility] Last Admin: 01/26/21 14:35 Dose: Not Given Documented by: Amoxicillin (Amoxicillin 500 Mg Cap) 500 mg PO TID [facility] Last Admin: 01/31/21 08:48 Dose: 500 mg Documented by: Diphenhydramine HCl (Diphenhydramine 50 Mg/Ml Sdv) 25 mg IVPUSH ONETIME ONE Stop: 01/28/21 01:58 Last Admin: 01/28/21 05:22 Dose: 25 mg Documented by: Furosemide (Furosemide 40 Mg Tab) 40 mg PO ONETIME ONE Stop: 01/27/21 17:01 Last Admin: 01/27/21 17:23 Dose: 40 mg Documented by: Furosemide (Furosemide 40 Mg/4 Ml Vial) 20 mg IVPUSH NOW ONE Stop: 02/03/21 14:00 Last Admin: 02/03/21 17:04 Dose: Not Given Documented by: Furosemide (Furosemide 20 Mg/2 Ml Vial) 20 mg IVPUSH NOW ONE Stop: 02/03/21 16:01 Last Admin: 02/03/21 16:10 Dose: 20 mg Documented by: Furosemide (Furosemide 20 Mg/2 Ml Vial) 20 mg IVPUSH NOW ONE Stop: 02/04/21 16:46 Last Admin: 02/04/21 17:05 Dose: 20 mg Documented by: Sodium Chloride (Normal Saline) 1,000 mls @ 999 mls/hr IV ASDIRECTED [facility] Last Admin: 01/25/21 14:10 Dose: 999 mls/hr Documented by: Lidocaine HCl (Lidocaine 2% Jelly 10 Ml Urojet) 10 ml MUCMEM ONETIME ONE Stop: 01/25/21 12:21 Last Admin: 01/25/21 12:44 Dose: 10 ml Documented by: Lorazepam (Lorazepam 1 Mg Tab) 1 mg PO ONETIME STA Stop: 01/26/21 11:47 Last Admin: 01/26/21 11:53 Dose: 1 mg Documented by: Potassium Chloride (Potassium Chloride 20 Meq Tab.Er) 40 meq PO ONETIME ONE Stop: 01/30/21 06:57 Last Admin: 01/30/21 09:09 Dose: 40 meq Documented by: Potassium Chloride (Potassium Chloride 20 Meq Tab.Er) 40 meq PO ONETIME ONE Stop: 02/05/21 09:31 Last Admin: 02/05/21 09:59 Dose: 40 meq Documented by: Propranolol HCl (Propranolol 60 Mg Cap.Er) 120 mg PO DAILY [facility] Last Admin: 01/26/21 10:08 Dose: 120 mg Documented by: Terazosin HCl (Terazosin 5 Mg Cap) 10 mg PO BEDTIME [facility] Last Admin: 01/25/21 20:34 Dose: 10 mg Documented by: - Exam Quality Assessment: DVT Prophylaxis General: Alert, Cooperative, Mild Distress. No: Oriented Lungs: Clear to Auscultation, Normal Respiratory Effort, Decreased Breath Sounds Cardiovascular: Regular Rate, Regular Rhythm, No Murmurs GI/Abdominal Exam: Soft, Non-Tender, No Organomegaly, No Distention Extremities: Non-Tender, Pedal Edema - Patient Data Lab Results Last 24 hrs: Laboratory Results - last 24 hr 02/05/21 Range/Units 04:20 Potassium 3.4 L (3.6-5.2) mmol/L Result Diagrams: 02/04/21 05:49 02/05/21 04:20 Sepsis Event Note - Evaluation Sepsis Screening Result: No Definite Risk - Focused Exam Vital Signs: Vital Signs Temp Pulse Resp BP Pulse Ox 02/05/21 10:49 96.6 F L 70 16 139/69 95 02/05/21 07:41 97.6 F 69 16 135/84 95 02/05/21 02:54 96.4 F L 55 L 18 156/85 H 95 02/04/21 23:26 97.3 F 78 16 147/84 H 95 - Problem List Review Problem List Initiated/Reviewed/Updated: Yes - My Orders Last 24 Hours: My Active Orders 02/05/21 17:00 Furosemide [Lasix] 20 mg IVPUSH NOW ONE Potassium Chloride [Klor-Con M20] 40 meq PO ONETIME ONE 02/06/21 05:11 POTASSIUM,K [CHEM] AM - Plan Plan:: ASSESSMENT AND PLAN Normal pressure hydrocephalus- Patient appears to have responded well to lumbar puncture performed 01/27 with 17 mL of clear fluid removed. Immediate improvement noted following lumbar puncture but he has deteriorated over the past several days and is unable to ambulate or transfer. Cultures from lumbar puncture remain negative -Physical therapy evaluation -Depakote to help with confusion -Continue to hold oxybutynin and simvastatin -Transfer when a bed becomes available for shunt placement Chronic atrial fibrillation-currently rate controlled with propranolol. He was on chronic anticoagulation with rivaroxaban, last dose was 01/24 in the morning. -Continue propranolol -Hold rivaroxaban with possibility of shunt placement in the near future Heart failure with reduced ejection fraction-patient had echo 01/27 because of lower extremity edema. He has a mildly reduced ejection fraction no significant valvular abnormalities. Continues to experience peripheral edema -Increase furosemide to twice daily History of bladder cancer-regularly follows with [facility]. Is not thought to have active disease and appears to be in remission. BPH with lower urinary tract symptoms-he is on 2 different medications including the oxybutynin to help with bladder issues. The oxybutynin could be contributing as discussed above. -Hold oxybutynin Bilateral knee pain-pain apparently increased following his fall at home. X- rays showed no obvious fracture but do document underlying osteoarthritis -Limited course of Solu-Medrol 40 mg daily, discontinue after dose tomorrow Maintenance issues - -DVT prophylaxis- mechanical -GI prophylaxis-not indicated -Nutrition-regular Admission justification -this patient was transitioned to inpatient status with a diagnosis of normal pressure hydrocephalus requiring lumbar puncture for management of symptoms. Disposition -I anticipate transfer for shunt placement
[2021-02-05] MEDS ORDERED: Furosemide 20 MG/2 ML VIAL IVPUSH ONE (17:00)
[2021-02-05] MEDS: Melatonin 3 MG Tab PO SCH (20:39)
[2021-02-05] MEDS: Terazosin 5 MG Cap PO SCH (20:39)
[2021-02-06] MEDS: Divalproex Sodium Delayed-Release 125 MG Cap.Sprink PO SCH ×2 (08:08→16:22)
[2021-02-06] MEDS: Furosemide 40 MG Tab PO SCH (08:08)
--- NOTE | 2021-02-06 11:19 | PCM.PN ---
- General Info Date of Service: 02/06/21 Subjective Update: Mr. Fan has been fairly stable since yesterday. Peripheral edema has slowly improved with current diuretic therapy. He is more alert and less confused today. Current plan is for transfer to [facility] tomorrow for shunt placement. Functional Status: Reports: Tolerating Diet. Denies: Ambulating - Review of Systems General: Reports: Weakness. Denies: Fever, Chills Pulmonary: Reports: No Symptoms Cardiovascular: Reports: No Symptoms Gastrointestinal: Reports: No Symptoms Genitourinary: Reports: No Symptoms - Patient Data Vitals - Most Recent: Last Vital Signs Temp 96.9 F 02/06/21 10:20 Pulse 79 02/06/21 10:20 Resp 15 02/06/21 10:20 BP 127/75 02/06/21 10:20 Pulse Ox 95 02/06/21 10:20 Orthostatic Blood Pressure [ 161/122 Sitting] Orthostatic Blood Pressure [ 164/111 Supine] Weight - Most Recent: 222 lb I&O - Last 24 Hours: Intake & Output 02/05/21 02/06/21 02/06/21 22:59 06:59 14:59 Intake Total 940 1000 Balance 940 1000 Lab Results Last 24 Hours: Laboratory Results - last 24 hr 02/06/21 Range/Units 04:10 Potassium 4.0 (3.6-5.2) mmol/L Med Orders - Current: Current Medications Acetaminophen (Acetaminophen 325 Mg Tab) 650 mg PO Q4H PRN PRN Reason: Pain (Mild 1-3)/fever Last Admin: 02/02/21 06:22 Dose: 650 mg Documented by: Divalproex Sodium (Divalproex Sodium Delayed-Release 125 Mg Cap.Sprink) 125 mg PO BIDMEALS [facility] Last Admin: 02/06/21 08:08 Dose: 125 mg Documented by: Furosemide (Furosemide 40 Mg Tab) 40 mg PO DAILY [facility] Last Admin: 02/06/21 08:08 Dose: 40 mg Documented by: Furosemide (Furosemide 40 Mg/4 Ml Vial) 20 mg IVPUSH NOW ONE Stop: 02/06/21 17:01 Lorazepam (Lorazepam 2 Mg/Ml Sdv) 0.5 mg IVPUSH Q4H PRN PRN Reason: Nausea/Vomiting Melatonin (Melatonin 3 Mg Tab) 9 mg PO BEDTIME [facility] Last Admin: 02/05/21 20:39 Dose: 9 mg Documented by: Ondansetron HCl (Ondansetron 4 Mg/2 Ml Sdv) 4 mg IV Q6H PRN PRN Reason: Nausea/Vomiting Ondansetron HCl (Ondansetron 4 Mg Tab.Dis) 4 mg PO Q6H PRN PRN Reason: Nausea able to take PO Polyethylene Glycol (Polyethylene Glycol 3350 Powder 17 Gm Packet) 17 gm PO DAILY PRN PRN Reason: Constipation Potassium Chloride (Potassium Chloride 20 Meq Tab.Er) 40 meq PO ONETIME ONE Stop: 02/06/21 12:01 Senna/Docusate Sodium (Docusate Sodium/Sennosides 50-8.6 Mg Tab) 1 tab PO BID PRN PRN Reason: Constipation Last Admin: 02/02/21 06:22 Dose: 1 tab Documented by: Sodium Chloride (Sodium Chloride 0.9% 10 Ml Syringe) 10 ml FLUSH ASDIRECTED PRN PRN Reason: Keep Vein Open Terazosin HCl (Terazosin 5 Mg Cap) 10 mg PO BEDTIME [facility] Last Admin: 02/05/21 20:39 Dose: 10 mg Documented by: Discontinued Medications Amoxicillin (Amoxicillin 500 Mg Cap) 500 mg PO TID [facility] Last Admin: 01/26/21 14:32 Dose: 500 mg Documented by: Amoxicillin (Amoxicillin 500 Mg Ptom) 500 mg PO TID [facility] Last Admin: 01/26/21 14:35 Dose: Not Given Documented by: Amoxicillin (Amoxicillin 500 Mg Cap) 500 mg PO TID [facility] Last Admin: 01/31/21 08:48 Dose: 500 mg Documented by: Diphenhydramine HCl (Diphenhydramine 50 Mg/Ml Sdv) 25 mg IVPUSH ONETIME ONE Stop: 01/28/21 01:58 Last Admin: 01/28/21 05:22 Dose: 25 mg Documented by: Furosemide (Furosemide 40 Mg Tab) 40 mg PO ONETIME ONE Stop: 01/27/21 17:01 Last Admin: 01/27/21 17:23 Dose: 40 mg Documented by: Furosemide (Furosemide 40 Mg/4 Ml Vial) 20 mg IVPUSH NOW ONE Stop: 02/03/21 14:00 Last Admin: 02/03/21 17:04 Dose: Not Given Documented by: Furosemide (Furosemide 20 Mg/2 Ml Vial) 20 mg IVPUSH NOW ONE Stop: 02/03/21 16:01 Last Admin: 02/03/21 16:10 Dose: 20 mg Documented by: Furosemide (Furosemide 20 Mg/2 Ml Vial) 20 mg IVPUSH NOW ONE Stop: 02/04/21 16:46 Last Admin: 02/04/21 17:05 Dose: 20 mg Documented by: Furosemide (Furosemide 20 Mg/2 Ml Vial) 20 mg IVPUSH NOW ONE Stop: 02/05/21 17:01 Last Admin: 02/05/21 17:04 Dose: 20 mg Documented by: Sodium Chloride (Normal Saline) 1,000 mls @ 999 mls/hr IV ASDIRECTED [facility] Last Admin: 01/25/21 14:10 Dose: 999 mls/hr Documented by: Lidocaine HCl (Lidocaine 2% Jelly 10 Ml Urojet) 10 ml MUCMEM ONETIME ONE Stop: 01/25/21 12:21 Last Admin: 01/25/21 12:44 Dose: 10 ml Documented by: Lorazepam (Lorazepam 1 Mg Tab) 1 mg PO ONETIME STA Stop: 01/26/21 11:47 Last Admin: 01/26/21 11:53 Dose: 1 mg Documented by: Methylprednisolone Sodium Succinate (Methylprednisolone Sodium Succinate 40 Mg/1 Ml Sdv) 40 mg IVPUSH DAILY [facility] Stop: 02/05/21 16:00 Last Admin: 02/05/21 08:23 Dose: 40 mg Documented by: Potassium Chloride (Potassium Chloride 20 Meq Tab.Er) 40 meq PO ONETIME ONE Stop: 01/30/21 06:57 Last Admin: 01/30/21 09:09 Dose: 40 meq Documented by: Potassium Chloride (Potassium Chloride 20 Meq Tab.Er) 40 meq PO ONETIME ONE Stop: 02/05/21 09:31 Last Admin: 02/05/21 09:59 Dose: 40 meq Documented by: Potassium Chloride (Potassium Chloride 20 Meq Tab.Er) 40 meq PO ONETIME ONE Stop: 02/05/21 17:01 Last Admin: 02/05/21 17:05 Dose: 40 meq Documented by: Propranolol HCl (Propranolol 60 Mg Cap.Er) 120 mg PO DAILY [facility] Last Admin: 01/26/21 10:08 Dose: 120 mg Documented by: Terazosin HCl (Terazosin 5 Mg Cap) 10 mg PO BEDTIME [facility] Last Admin: 01/25/21 20:34 Dose: 10 mg Documented by: - Exam Quality Assessment: DVT Prophylaxis General: Alert, Cooperative, Mild Distress. No: Oriented Lungs: Clear to Auscultation, Normal Respiratory Effort Cardiovascular: Regular Rate, Regular Rhythm, No Murmurs GI/Abdominal Exam: Soft, Non-Tender, No Organomegaly, No Distention Extremities: Non-Tender, Pedal Edema - Patient Data Lab Results Last 24 hrs: Laboratory Results - last 24 hr 02/06/21 Range/Units 04:10 Potassium 4.0 (3.6-5.2) mmol/L Result Diagrams: 02/04/21 05:49 02/06/21 04:10 Sepsis Event Note - Evaluation Sepsis Screening Result: No Definite Risk - Focused Exam Vital Signs: Vital Signs Temp Pulse Resp BP Pulse Ox 02/06/21 10:20 96.9 F 79 15 127/75 95 02/06/21 07:39 98.2 F 67 16 156/99 H 97 02/06/21 03:45 97.3 F 64 18 136/79 93 L 02/06/21 00:37 96.5 F L 60 18 142/97 H 97 - Problem List Review Problem List Initiated/Reviewed/Updated: Yes - My Orders Last 24 Hours: My Active Orders 02/06/21 12:00 Potassium Chloride [Klor-Con M20] 40 meq PO ONETIME ONE 02/06/21 17:00 Furosemide [Lasix] 20 mg IVPUSH NOW ONE 02/07/21 05:11 POTASSIUM,K [CHEM] AM - Plan Plan:: ASSESSMENT AND PLAN Normal pressure hydrocephalus- Patient appears to have responded well to lumbar puncture performed 01/27 with 17 mL of clear fluid removed. Immediate improvement noted following lumbar puncture but he has deteriorated over the past week and is unable to ambulate or transfer. Cultures from lumbar puncture remain negative -Physical therapy evaluation -Depakote to help with confusion -Continue to hold oxybutynin and simvastatin -Transfer to [facility] tomorrow for shunt placement Chronic atrial fibrillation-currently rate controlled with propranolol. He was on chronic anticoagulation with rivaroxaban, last dose was 01/24 in the morning. -Continue propranolol -Hold rivaroxaban with possibility of shunt placement in the near future Heart failure with reduced ejection fraction-patient had echo 01/27 because of lower extremity edema. He has a mildly reduced ejection fraction no significant valvular abnormalities. Continues to experience peripheral edema -Continue diuretic therapy History of bladder cancer-regularly follows with [facility]. Is not thought to have active disease and appears to be in remission. BPH with lower urinary tract symptoms-he is on 2 different medications including the oxybutynin to help with bladder issues. The oxybutynin could be contributing as discussed above. -Hold oxybutynin Bilateral knee pain-pain apparently increased following his fall at home. X- rays showed no obvious fracture but do document underlying osteoarthritis -Limited course of Solu-Medrol 40 mg daily, discontinue after dose tomorrow Maintenance issues - -DVT prophylaxis- mechanical -GI prophylaxis-not indicated -Nutrition-regular Admission justification -this patient was transitioned to inpatient status with a diagnosis of normal pressure hydrocephalus requiring lumbar puncture for ma nagement of symptoms. Disposition -I anticipate transfer for shunt placement tomorrow
[2021-02-06] MEDS ORDERED: Potassium Chloride 20 MEQ Tab.ER PO ONE (12:00)
[2021-02-06] MEDS ORDERED: Furosemide 20 MG/2 ML VIAL IVPUSH ONE (17:00)
[2021-02-06] MEDS: Terazosin 5 MG Cap PO SCH (20:06)
[2021-02-06] MEDS: Melatonin 3 MG Tab PO SCH (20:07)
[2021-02-07] MEDS: Divalproex Sodium Delayed-Release 125 MG Cap.Sprink PO SCH (08:59)
[2021-02-07] MEDS: Furosemide 40 MG Tab PO SCH (09:02)
--- NOTE | 2021-02-07 09:56 | PCM.DCSUM1 ---
Discharge Summary - Hospital Course Brief History: 80-year-old male with history of paroxysmal atrial fibrillation and possible mild normal pressure hydrocephalus who presented with progressive gait instability with falls, confusion and urinary urgency. He was admitted for management of suspected normal pressure hydrocephalus. Diagnosis: Stroke: No - Discharge Data Discharge Date: 02/07/21 Discharge Disposition: DC/Tfer to Acute Hospital 02 Condition: Stable - Referral to Home Health Primary Care Physician: PCP None - Discharge Diagnosis/Problem(s) (1) NPH (normal pressure hydrocephalus) SNOMED Code(s): 68726543 ICD Code: G91.2 - (IDIOPATHIC) NORMAL PRESSURE HYDROCEPHALUS Status: Suspected Current Visit: Yes (2) Falls frequently SNOMED Code(s): 435599977 ICD Code: R29.6 - REPEATED FALLS Status: Acute Current Visit: Yes (3) BPH loc w urin obs/LUTS SNOMED Code(s): 188404947 ICD Code: N40.1 - BENIGN PROSTATIC HYPERPLASIA WITH LOWER URINARY TRACT SYMP Status: Chronic Current Visit: Yes (4) Chronic atrial fibrillation SNOMED Code(s): 563241757 ICD Code: I48.20 - CHRONIC ATRIAL FIBRILLATION, UNSPECIFIED Status: Chronic Current Visit: Yes - Patient Summary/Data Consults: Consultations 01/25/21 17:30 PT Evaluation and Treatment [CONS] Routine Please Evaluate and Treat. PT Reason for Consult: Strengthening This query below is only for informational purposes and is not editable. 01/26/21 13:27 OT Evaluation and Treatment [CONS] Routine Please Evaluate and Treat. OT Reason for Consult: weakness coordination This query below is only for informational purposes and is not editable. Admission Diagnosis/Problem: Falls Hospital Course: Gene presented to the emergency room with progressive weakness, gait instability, confusion and urinary urgency. Work-up in the emergency room did not reveal any evidence for infection. A CT of the head showed enlargement of the ventricles which had increased in size from 1 year earlier. There was concern for normal pressure hydrocephalus. Patient was admitted to the hospital for further work-up and management. The morning after admission he had an MRI of the brain which showed enlarged ventricles with some periventricular enhancement and this was felt to be consistent with NPH. I did discuss the case with the on-call neurologist at [facility] in [place]. They recommended a trial of a lumbar puncture with removal of 15 to 20 mL of fluid. This was completed on 27 January. 17 mL of fluid was removed. This was clear. No organisms were seen on the Gram stain. Protein was very mildly elevated but oth erwise it was bland. About 3 hours after the procedure he was able to ambulate down the hallway. His mental status seem to have improved a fair amount but not back to baseline. I discussed the case with the on-call neurosurgery in [place] and our hope was that we could get him well enough for outpatient management. Unfortunately the next day his condition had returned to that of admission with confusion and significant difficulty with strength and walking. Over the weekend there were no significant changes. The case was again discussed with neurosurgery early in the week 1 week prior to discharge. It was felt that transfer for intervention could be considered but unfortunately there were no beds available. The patient deteriorated through the week with progressive weakness and increasing confusion. He is now requiring a Tian lift for transfers. The plan is for him to be discharged and transferred to [facility] in [place]. He will be admitted today and then have neurosurgical intervention to manage the normal pressure hydrocephalus tomorrow. If the surgery is uneventful and once the patient is stable he will either return here to our facility or go to a alf for rehabilitation. There has been no evidence for infection and all of the cultures from his cerebrospinal fluid have been negative. He is stable and safe for transfer at this time. He is not able to ambulate so the only safe way to transfer him is via ambulance. He has been off of his rivaroxaban during the entirety of the hospital stay. - Patient Instructions Diet: Regular Diet as Tolerated Activity: Bedrest Other/Special Instructions: transfer to [facility] - Dr Venegas accepting, needs neurosurgical intervention with Dr Clemente, this is planned for tomorrow. - Discharge Plan *PRESCRIPTION DRUG MONITORING PROGRAM REVIEWED*: Not Applicable *COPY OF PRESCRIPTION DRUG MONITORING REPORT IN PATIENT OLAYINKA: Not Applicable Home Medications: Home Meds Amoxicillin 500 mg PO TID 01/25/21 [History] Oxybutynin Chloride [Oxybutynin Chloride ER] 10 mg PO DAILY 01/25/21 [History] Propranolol HCl [Propranolol HCl ER] 20 mg PO DAILY 01/25/21 [History] Rivaroxaban [Xarelto] 1 tab PO DAILY 01/25/21 [History] Simvastatin 80 mg PO DAILY 01/25/21 [History] Terazosin [Hytrin] 10 mg PO BEDTIME 01/25/21 [History] Referrals: PCP,None [Primary Care Provider] - - Discharge Summary/Plan Comment DC Time >30 min.: Yes Total # of Minutes for Discharge Time: 50-transfer to acute hospital - Patient Data Vitals - Most Recent: Last Vital Signs Temp 36.3 C 02/07/21 08:30 Pulse 75 02/07/21 08:30 Resp 18 02/07/21 08:30 BP 122/87 02/07/21 08:30 Pulse Ox 96 02/07/21 08:30 Orthostatic Blood Pressure [ 161/122 Sitting] Orthostatic Blood Pressure [ 164/111 Supine] Weight - Most Recent: 100.698 kg I&O - Last 24 hours: Intake & Output 02/06/21 02/07/21 02/07/21 22:59 06:59 14:59 Intake Total 240 500 Balance 240 500 Lab Results - Last 24 hrs: Laboratory Results - last 24 hr 02/07/21 Range/Units 04:30 Potassium 3.8 (3.6-5.2) mmol/L Med Orders - Current: Current Medications Acetaminophen (Acetaminophen 325 Mg Tab) 650 mg PO Q4H PRN PRN Reason: Pain (Mild 1-3)/fever Last Admin: 02/02/21 06:22 Dose: 650 mg Documented by: Divalproex Sodium (Divalproex Sodium Delayed-Release 125 Mg Cap.Sprink) 125 mg PO BIDMEALS [facility] Last Admin: 02/07/21 08:59 Dose: 125 mg Documented by: Furosemide (Furosemide 40 Mg Tab) 40 mg PO DAILY [facility] Last Admin: 02/07/21 09:02 Dose: 40 mg Documented by: Lorazepam (Lorazepam 2 Mg/Ml Sdv) 0.5 mg IVPUSH Q4H PRN PRN Reason: Nausea/Vomiting Melatonin (Melatonin 3 Mg Tab) 9 mg PO BEDTIME [facility] Last Admin: 02/06/21 20:07 Dose: 9 mg Documented by: Ondansetron HCl (Ondansetron 4 Mg/2 Ml Sdv) 4 mg IV Q6H PRN PRN Reason: Nausea/Vomiting Ondansetron HCl (Ondansetron 4 Mg Tab.Dis) 4 mg PO Q6H PRN PRN Reason: Nausea able to take PO Polyethylene Glycol (Polyethylene Glycol 3350 Powder 17 Gm Packet) 17 gm PO DAILY PRN PRN Reason: Constipation Senna/Docusate Sodium (Docusate Sodium/Sennosides 50-8.6 Mg Tab) 1 tab PO BID PRN PRN Reason: Constipation Last Admin: 02/02/21 06:22 Dose: 1 tab Documented by: Sodium Chloride (Sodium Chloride 0.9% 10 Ml Syringe) 10 ml FLUSH ASDIRECTED PRN PRN Reason: Keep Vein Open Terazosin HCl (Terazosin 5 Mg Cap) 10 mg PO BEDTIME [facility] Last Admin: 02/06/21 20:06 Dose: 10 mg Documented by: Discontinued Medications Amoxicillin (Amoxicillin 500 Mg Cap) 500 mg PO TID [facility] Last Admin: 01/26/21 14:32 Dose: 500 mg Documented by: Amoxicillin (Amoxicillin 500 Mg Ptom) 500 mg PO TID [facility] Last Admin: 01/26/21 14:35 Dose: Not Given Documented by: Amoxicillin (Amoxicillin 500 Mg Cap) 500 mg PO TID [facility] Last Admin: 01/31/21 08:48 Dose: 500 mg Documented by: Diphenhydramine HCl (Diphenhydramine 50 Mg/Ml Sdv) 25 mg IVPUSH ONETIME ONE Stop: 01/28/21 01:58 Last Admin: 01/28/21 05:22 Dose: 25 mg Documented by: Furosemide (Furosemide 40 Mg Tab) 40 mg PO ONETIME ONE Stop: 01/27/21 17:01 Last Admin: 01/27/21 17:23 Dose: 40 mg Documented by: Furosemide (Furosemide 40 Mg/4 Ml Vial) 20 mg IVPUSH NOW ONE Stop: 02/03/21 14:00 Last Admin: 02/03/21 17:04 Dose: Not Given Documented by: Furosemide (Furosemide 20 Mg/2 Ml Vial) 20 mg IVPUSH NOW ONE Stop: 02/03/21 16:01 Last Admin: 02/03/21 16:10 Dose: 20 mg Documented by: Furosemide (Furosemide 20 Mg/2 Ml Vial) 20 mg IVPUSH NOW ONE Stop: 02/04/21 16:46 Last Admin: 02/04/21 17:05 Dose: 20 mg Documented by: Furosemide (Furosemide 20 Mg/2 Ml Vial) 20 mg IVPUSH NOW ONE Stop: 02/05/21 17:01 Last Admin: 02/05/21 17:04 Dose: 20 mg Documented by: Furosemide (Furosemide 20 Mg/2 Ml Vial) 20 mg IVPUSH NOW ONE Stop: 02/06/21 17:01 Last Admin: 02/06/21 16:19 Dose: 20 mg Documented by: Sodium Chloride (Normal Saline) 1,000 mls @ 999 mls/hr IV ASDIRECTED [facility] Last Admin: 01/25/21 14:10 Dose: 999 mls/hr Documented by: Lidocaine HCl (Lidocaine 2% Jelly 10 Ml Urojet) 10 ml MUCMEM ONETIME ONE Stop: 01/25/21 12:21 Last Admin: 01/25/21 12:44 Dose: 10 ml Documented by: Lorazepam (Lorazepam 1 Mg Tab) 1 mg PO ONETIME STA Stop: 01/26/21 11:47 Last Admin: 01/26/21 11:53 Dose: 1 mg Documented by: Methylprednisolone Sodium Succinate (Methylprednisolone Sodium Succinate 40 Mg/1 Ml Sdv) 40 mg IVPUSH DAILY [facility] Stop: 02/05/21 16:00 Last Admin: 02/05/21 08:23 Dose: 40 mg Documented by: Potassium Chloride (Potassium Chloride 20 Meq Tab.Er) 40 meq PO ONETIME ONE Stop: 01/30/21 06:57 Last Admin: 01/30/21 09:09 Dose: 40 meq Documented by: Potassium Chloride (Potassium Chloride 20 Meq Tab.Er) 40 meq PO ONETIME ONE Stop: 02/05/21 09:31 Last Admin: 02/05/21 09:59 Dose: 40 meq Documented by: Potassium Chloride (Potassium Chloride 20 Meq Tab.Er) 40 meq PO ONETIME ONE Stop: 02/05/21 17:01 Last Admin: 02/05/21 17:05 Dose: 40 meq Documented by: Potassium Chloride (Potassium Chloride 20 Meq Tab.Er) 40 meq PO ONETIME ONE Stop: 02/06/21 12:01 Last Admin: 02/06/21 11:35 Dose: 40 meq Documented by: Propranolol HCl (Propranolol 60 Mg Cap.Er) 120 mg PO DAILY [facility] Last Admin: 01/26/21 10:08 Dose: 120 mg Documented by: Terazosin HCl (Terazosin 5 Mg Cap) 10 mg PO BEDTIME [facility] Last Admin: 01/25/21 20:34 Dose: 10 mg Documented by:
== END 2021-02-07 11:20 | DRG 57 ==
LOC: JP.ED 11:24 → JP.MS 16:32 → OBSVTOIN 16:32
PROVIDERS: ADMIT Internal Medicine; ATTEND Internal Medicine
PROC: 009U3ZX Drainage of Spinal Canal, Percutaneous Approach, Diagnostic (ICD-10-PCS; principal; 2021-01-25)
DX: N39.0 Urinary tract infection, site not specified (principal); G91.2 (Idiopathic) normal pressure hydrocephalus; I48.20 Chronic atrial fibrillation, unspecified; I50.22 Chronic systolic (congestive) heart failure; R29.6 Repeated falls; N40.1 Benign prostatic hyperplasia with lower urinary tract symptoms; R26.89 Other abnormalities of gait and mobility; H91.90 Unspecified hearing loss, unspecified ear; H54.7 Unspecified visual loss; E78.00 Pure hypercholesterolemia, unspecified; G47.30 Sleep apnea, unspecified; W19.XXXA Unspecified fall, initial encounter; R32 Unspecified urinary incontinence; M19.90 Unspecified osteoarthritis, unspecified site; G89.29 Other chronic pain; M54.9 Dorsalgia, unspecified; Z85.51 Personal history of malignant neoplasm of bladder; Z98.49 Cataract extraction status, unspecified eye; Z79.899 Other long term (current) drug therapy; Z79.01 Long term (current) use of anticoagulants; R00.1 Bradycardia, unspecified; M25.562 Pain in left knee; M25.561 Pain in right knee; Z20.822 Contact with and (suspected) exposure to COVID-19
CPT/HCPCS: 36415; 70450 ×2; 80053; 81001; 82550; 85025; J7030; 70551; 70551-26; 735622650; 73562-50; 80048; 82945; 84132; 84157; 84443; 85651; 86140; 87070; 87205; 89050; 93306; 97110-GO; 97110-GP; 97140-GP; 97162-GP; 97165-GO; 97530-GP; 97535-GO; 97535-GP; A9270-GY; J1200; J1940; J2920; U0002

== ENCOUNTER 2021-02-09 18:34 | Observation (INO) | payer MEDICARE, BC ==
--- NOTE | 2021-02-09 20:20 | PCM.HP.2 ---
H&P History of Present Illness - General Date of Service: 02/09/21 Admit Problem/Dx: Admission Diagnosis/Problem Admission Diagnosis/Problem Hydrocephalus in adult Source of Information: Patient, Family (), Other (transfer discharge summary [facility]) History Limitations: Reports: Altered Mental Status - History of Present Illness Initial Comments - Free Text/Narative: Chief complaint: Normal Hydrocephalus S/P right ventriculoperitoneal shunt 02/08/2021 Mr. Fan arrives via EMS from [facility] at approximately 1830. He is a direct admit/transfer from [facility] S/P [employer] HE[employer] shunt to right scalp for hydrocephalus. His is ar the bedside. She reports surgery went well, he seems less confused and more alert. He is here for recovery while awaiting admission to [facility]. No other concerns at this time. Onset of Symptoms: Reports: Gradual Location: Reports: Head (right scalp with surgical incision with sravani), Abdomen (right mid surgical incision with sravani.) - Related Data Allergies/Adverse Reactions: Allergies Allergy/AdvReac Type Severity Reaction Status Date / Time No Known Allergies Allergy Verified 01/25/21 11:31 Home Medications: Home Meds Oxybutynin Chloride [Oxybutynin Chloride ER] 10 mg PO DAILY 01/25/21 [History] Propranolol HCl [Propranolol HCl ER] 20 mg PO DAILY 01/25/21 [History] Rivaroxaban [Xarelto] 1 tab PO DAILY 01/25/21 [History] Simvastatin 80 mg PO DAILY 01/25/21 [History] Terazosin [Hytrin] 10 mg PO BEDTIME 01/25/21 [History] Past Medical History HEENT History: Reports: Hard of Hearing, Impaired Vision Cardiovascular History: Reports: Afib, High Cholesterol Respiratory History: Reports: Sleep Apnea Genitourinary History: Reports: Urinary Incontinence Musculoskeletal History: Reports: Arthritis, Back Pain, Chronic Neurological History: Reports: Concussion Other Psychiatric History: current new onset of confusion associated with diagnosis of hydrocephally Hematologic History: Reports: Anticoagulation Therapy Oncologic (Cancer) History: Reports: Bladder - Infectious Disease History Infectious Disease History: Reports: Chicken Pox, Influenza, Measles, Mumps - Past Surgical History Head Surgeries/Procedures: Reports: None HEENT Surgical History: Reports: Cataract Surgery Cardiovascular Surgical History: Reports: None Respiratory Surgical History: Reports: None Endocrine Surgical History: Reports: None Other Neurological Surgeries/Procedures: Hydrocephalus shunt placement on 02/08/21 Musculoskeletal Surgical History: Reports: None Oncologic Surgical History: Reports: None Social & Family History - Family History Family Medical History: Unobtainable - Tobacco Use Tobacco Use Status *Q: Unknown Ever Used Tobacco Second Hand Smoke Exposure: No - Caffeine Use Caffeine Use: Reports: Coffee, Soda Other Caffeine Use: occasionally - Recreational Drug Use Recreational Drug Use: No - Living Situation & Occupation Living situation: Reports: Occupation: Retired (Lives with and family dogs in [place], [place].) H&P Review of Systems - Review of Systems: Review Of Systems: See Below General: Reports: No Symptoms HEENT: Reports: Other (s/p [employer]ER shunt 02-08-2021, scalp with sravani) Pulmonary: Reports: No Symptoms Cardiovascular: Reports: No Symptoms Gastrointestinal: Reports: Abdominal Pain (reports pain with palpation of incisional site- surgery 02-08-2021) Genitourinary: Reports: Incontinence (chronic) Musculoskeletal: Reports: No Symptoms Skin: Reports: Other (2 surgery incisional right scalp and right mid abdomen) Psychiatric: Reports: Other (dementia without behavioral symptoms.) Neurological: Reports: Pre-Existing Deficit, Weakness Immunologic: Reports: No Symptoms Exam - Exam Exam: See Below - Vital Signs Vital Signs: Last Vital Signs Temp 95.5 F L 02/09/21 18:51 Pulse 48 L 02/09/21 18:51 Resp 16 02/09/21 18:51 BP 142/81 H 02/09/21 18:51 Pulse Ox 97 02/09/21 18:51 Weight: 210 lb - Exam Quality Assessment: DVT Prophylaxis General: Alert, Other (confusion noted with rambling speech.) HEENT: PERRLA, Conjunctiva Clear, Hearing Intact, Mucosa Moist & [place], Other (head is shaved, [employer] shunt noted under scalp-surgical incision site with [id number]-intact) Neck: Supple, Trachea Midline Lungs: Clear to Auscultation, Normal Respiratory Effort Cardiovascular: Regular Rate, Regular Rhythm GI/Abdominal Exam: Normal Bowel Sounds, Soft, Tender (noted due to surgical incision- site sravani- myo-rjuzg-[id number]- no redness -no discharge) (Male) Exam: Deferred Rectal (Males) Exam: Deferred Back Exam: Normal Inspection Extremities: Normal Inspection, Normal Range of Motion, Other (skin is very dry- no edema) Skin: Warm, Dry, Incision (two surgical incisions noted to right scalp and right mid abdomen- [id number]-wound edges approximated.) Neurological: Strength Equal Bilateral, Normal Speech Neuro Extensive - Mental Status: Alert, Inattentive (mtroncnj-xzsyqymcqwo-taeyqqzk speech pattern) Neuro Extensive - Motor, Sensory, Reflexes: Motor/Sensory Deficits Psychiatric: Alert, Other (confused) Sepsis Event Note - Focused Exam Vital Signs: Vital Signs Temp Pulse Resp BP Pulse Ox 02/09/21 18:51 95.5 F L 48 L 16 142/81 H 97 - Problem List (1) NPH (normal pressure hydrocephalus) SNOMED Code(s): 44742859 ICD Code: G91.2 - (IDIOPATHIC) NORMAL PRESSURE HYDROCEPHALUS Status: Suspected Current Visit: No (2) S/P ventriculoperitoneal shunt SNOMED Code(s): 649692166, 80047345, 888794986 ICD Code: Z98.2 - PRESENCE OF CEREBROSPINAL FLUID DRAINAGE DEVICE Status: Acute Current Visit: Yes (3) Chronic atrial fibrillation SNOMED Code(s): 121161934 ICD Code: I48.20 - CHRONIC ATRIAL FIBRILLATION, UNSPECIFIED Status: Chronic Current Visit: No (4) Essential hypertension SNOMED Code(s): 87555366 ICD Code: I10 - ESSENTIAL (PRIMARY) HYPERTENSION Status: Chronic Current Visit: No (5) CKD (chronic kidney disease), stage III SNOMED Code(s): 935496546 ICD Code: N18.30 - CHRONIC KIDNEY DISEASE, STAGE 3 UNSPECIFIED Status: Chronic Current Visit: No (6) Dementia SNOMED Code(s): 89781398 ICD Code: F03.90 - UNSPECIFIED DEMENTIA WITHOUT BEHAVIORAL DISTURBANCE Status: Acute Priority: High Current Visit: Yes Qualifiers: Dementia type: unspecified type Dementia behavioral disturbance: without behavioral disturbance Qualified Code(s): F03.90 - Unspecified dementia without behavioral disturbance Problem List Initiated/Reviewed/Updated: Yes Orders Last 24hrs: Active Orders 24 hr Category Date Time Status Patient Status Manage Transfer [TRANSFER] Routine ADT 02/09/21 19:48 Active Vaccine to be Administered/Admin Charge [RC] ASDIRECTED Care 02/09/21 19:44 Active FLU Vacc [id number](65YR UP)/PF [Fluzone High-Dose Quad Med 10/07/21 08:30 Once ] 240 mcg IM .ONCE ONE Resuscitation Status Routine Resus Stat 02/09/21 19:49 Ordered Medication Orders Influenza Virus Vaccine (Flu Vacc [id number](65yr Up)/Pf 240 Mcg/0.7 Ml Syringe) 240 mcg IM .ONCE ONE Stop: 02/10/21 08:31 Assessment/Plan Comment:: Assessment/Plan Comment:: ASSESSMENT AND PLAN NORMAL PRESSURE HYDROCEPHALUS S/P OPEN [employer]ER SHUNT. Mr. Fan had shunt placement surgery on 02/08/2021 at [facility] for complications of NPH. Reports no complications from Surgical procedure. -wound care of surgical sites- right scalp and right mid abdomen. sravani are wes-nynlm-asqqiy-with erythema or discharge -IV Saline lock -consult to PT -consult to OT -high risk for falls -continue outpatient medications -appointment wit Dr. Cory Clemente, post -op follow up, 02-18-2021 at 11:30 am at [facility] -repeat labs in am - CBC, BMP, MG++,PHOSPHORUS, INR,PT DEMENTIA -supportive care -at risk for falls CHRONIC AFIB -Xarelto 20 mg po bid HYPERTENSION -continue outpatient medications -Hydrochlorothiazide 50 mg po daily -Propranolol 20 mg po daily Kidney disease stage 3- -I & O -Appointment Nephrology, Cy Jay PA-c, at 1:20 pm at [facility] -Appointment Labs at [facility] -Repeat labs in the morning MAINTENANCE ISSUES -DVT prophylaxis; Xarelto 20 mg po bid -GI prophylaxis; Protonix 40 mg daily -Ehrnandez catheter; not indicated -Nutrition; regular diet -Nicotine dependence; not required -consult to OT and PT CODE STATUS-FULL CODE ADMISSION STATUS-this patient will be admitted to observation status, expect no more than a one night hospital stay for evaluation and management of problems as outlined above. DISPOSITION-anticipate discharge to [facility] on Sunday after the hospital stay. PRIMARY CARE PROVIDER-Dr. Valencia, [facility] HOSPITALIST Dr. Goldberg - Mortality Measure Prognosis:: Good - Mortality Measure Prognosis:: Good
[2021-02-09] MEDS ORDERED: LORazepam 2 MG/ML SDV IV PRN (20:28)
[2021-02-09] MEDS ORDERED: Acetaminophen 325 MG Tab PO PRN (20:28)
[2021-02-09] MEDS ORDERED: Albuterol 0.083% 2.5 MG/3 ML Neb Soln NEB PRN (20:28)
[2021-02-09] MEDS ORDERED: Acetaminophen/oxyCODONE 325-5 MG Tab PO PRN (20:28)
[2021-02-09] MEDS ORDERED: Morphine 2 MG/ML SYRINGE IVPUSH PRN (20:28)
[2021-02-09] MEDS ORDERED: Docusate Sodium 100 MG Cap PO PRN (20:28)
[2021-02-09] MEDS ORDERED: Bisacodyl 5 MG Tab PO PRN (20:28)
[2021-02-09] MEDS ORDERED: Ondansetron 4 MG/2 ML SDV IV PRN (20:28)
[2021-02-09] MEDS ORDERED: Sodium Chloride 0.9% 10 ML Syringe FLUSH PRN (20:28)
[2021-02-09] MEDS ORDERED: Ondansetron 4 MG Tab.DIS PO PRN (20:28)
[2021-02-09] MEDS ORDERED: Terazosin 5 MG Cap PO ONE (21:15)
[2021-02-10] MEDS: Polyethylene Glycol 3350 Powder 17 GM Packet PO SCH (08:16)
[2021-02-10] MEDS: Pantoprazole 40 MG Tab.CR PO SCH (08:16)
[2021-02-10] MEDS ORDERED: Pantoprazole 40 MG Vial IVPUSH SCH (09:00)
[2021-02-10] MEDS ORDERED: Non-Formulary Medication 1 Each (Rivaroxaban [Xarelto] 20 MG Tablet) PO SCH (09:00)
[2021-02-10] MEDS ORDERED: PROPRANOLOL 20 MG PO SCH (09:00)
--- NOTE | 2021-02-10 10:37 | PCM.PN ---
- General Info Date of Service: 02/10/21 Subjective Update: No acute events overnight. Patient did report some abdominal pain first thing this morning but minimizes it later this morning. He seems to be complaining of a headache though he was not able to describe it very well and I am not entirely sure he did have a headache. He knows that he is in [place] but seems to be a little tangential with his thinking. He has a little difficulty recalling the timeline of going from [place] to [place] and back and thinks there may have been a stop in [place]. He did not have any fevers. Laboratory studies a re unremarkable. Not much of an appetite for breakfast. Functional Status: Reports: Pain Controlled, Tolerating Diet - Review of Systems Neurological: Reports: Confusion - Patient Data Vitals - Most Recent: Last Vital Signs Temp 36.5 C 02/10/21 07:35 Pulse 60 02/10/21 07:35 Resp 16 02/10/21 07:35 BP 162/98 H 02/10/21 07:35 Pulse Ox 95 02/10/21 07:35 Weight - Most Recent: 95.254 kg Lab Results Last 24 Hours: Laboratory Results - last 24 hr 02/10/21 02/10/21 02/10/21 Range/Units 05:10 05:10 05:10 WBC 10.1 (4.5-11.0) K/uL RBC 5.06 (4.30-5.90) M/uL Hgb 15.8 H (12.0-15.0) g/dL Hct 47.5 (40.0-54.0) % MCV 94 (80-98) fL MCH 31 (27-31) pg MCHC 33 (32-36) % Plt Count 201 (150-400) K/uL Neut % (Auto) 76.7 H (36-66) % Lymph % (Auto) 11.8 L (24-44) % Door % (Auto) 10.3 H (2-6) % Eos % (Auto) 1.1 L (2-4) % Baso % (Auto) 0.1 (0-1) % PT 12.1 H (9.2-10.6) sec INR 1.2 Sodium 140 (140-148) mmol/L Potassium 3.6 (3.6-5.2) mmol/L Chloride 103 (100-108) mmol/L Carbon Dioxide 28 (21-32) mmol/L Anion Gap 8.7 (5.0-14.0) mmol/L BUN 26 H (7-18) mg/dL Creatinine 1.1 (0.8-1.3) mg/dL Est Cr Clr Drug Dosing 56.83 mL/min Estimated GFR (MDRD) > 60 (>60) Glucose 99 (74-106) mg/dL Calcium 8.7 (8.5-10.1) mg/dL Phosphorus 2.8 (2.5-4.9) mg/dL Magnesium 2.1 (1.8-2.4) mg/dL Total Bilirubin 0.7 (0.2-1.0) mg/dL AST 18 (15-37) U/L ALT 43 D (12-78) U/L Alkaline Phosphatase 89 (46-116) U/L Total Protein 6.2 L (6.4-8.2) g/dL Albumin 2.5 L (3.4-5.0) g/dL Globulin 3.7 H (2.3-3.5) g/dL Albumin/Globulin Ratio 0.7 L (1.2-2.2) Med Orders - Current: Current Medications Acetaminophen (Acetaminophen 325 Mg Tab) 650 mg PO Q4H PRN PRN Reason: Pain (Mild 1-3)/fever Albuterol (Albuterol 0.083% 2.5 Mg/3 Ml Neb Soln) 2.5 mg NEB Q4H PRN PRN Reason: Shortness Of Breath/wheezing Bisacodyl (Bisacodyl 5 Mg Tab) 5 mg PO DAILY PRN PRN Reason: Constipation Docusate Sodium (Docusate Sodium 100 Mg Cap) 100 mg PO BID PRN PRN Reason: Constipation Lorazepam (Lorazepam 2 Mg/Ml Sdv) 1 mg IV Q6H PRN PRN Reason: Nausea/Vomiting Morphine Sulfate (Morphine 2 Mg/Ml Syringe) 2 mg IVPUSH Q2H PRN PRN Reason: Pain (severe 7-10) Non-Formulary Medication (Oxybutynin Chloride [Oxybutynin Chloride Er]) 10 mg PO DAILY [facility] Non-Formulary Medication 1 Each ( Propranolol 20mg) 20 mg PO DAILY [facility] Non-Formulary Medication (Rivaroxaban [Xarelto]) 1 tab PO DAILY [facility] Non-Formulary Medication (Simvastatin [Simvastatin]) 80 mg PO DAILY [facility] Ondansetron HCl (Ondansetron 4 Mg Tab.Dis) 4 mg PO Q6H PRN PRN Reason: Nausea able to take PO Ondansetron HCl (Ondansetron 4 Mg/2 Ml Sdv) 4 mg IV Q4H PRN PRN Reason: Nausea/Vomiting Oxycodone/Acetaminophen (Acetaminophen/Oxycodone 325-5 Mg Tab) 1 tab PO Q4H PRN PRN Reason: Pain (moderate 4-6) Last Admin: 02/10/21 08:52 Dose: 1 tab Documented by: Pantoprazole Sodium (Pantoprazole 40 Mg Tab.Cr) 40 mg PO ACBREAKFAST [facility] Last Admin: 02/10/21 08:16 Dose: 40 mg Documented by: Polyethylene Glycol (Polyethylene Glycol 3350 Powder 17 Gm Packet) 17 gm PO DAILY [facility] Last Admin: 02/10/21 08:16 Dose: 17 gm Documented by: Sodium Chloride (Sodium Chloride 0.9% 10 Ml Syringe) 10 ml FLUSH ASDIRECTED PRN PRN Reason: Keep Vein Open Terazosin HCl (Terazosin 5 Mg Cap) 10 mg PO BEDTIME [facility] Discontinued Medications Influenza Virus Vaccine (Pharmacy To Dose - Influenza Vaccine) 1 each IM ONETIME ONE Stop: 02/10/21 08:31 Influenza Virus Vaccine (Flu Vacc [id number](65yr Up)/Pf 240 Mcg/0.7 Ml Syringe) 240 mcg IM .ONCE ONE Stop: 02/10/21 08:31 Terazosin HCl (Terazosin 5 Mg Cap) 10 mg PO ONETIME ONE Stop: 02/09/21 21:16 Last Admin: 02/09/21 21:42 Dose: Not Given Documented by: - Exam Quality Assessment: No: Supplemental Oxygen General: Alert, Oriented (knows he is in [place]), Cooperative, No Acute Distress HEENT: Pupils Equal Lungs: Clear to Auscultation, Normal Respiratory Effort Cardiovascular: Regular Rate, Irregular Rhythm GI/Abdominal Exam: Soft, No Distention Extremities: Pedal Edema (mild bilateral ankle edema ). No: Increased Warmth Skin: Warm, Dry Psy/Mental Status: Alert, Normal Affect - Patient Data Lab Results Last 24 hrs: Laboratory Results - last 24 hr 02/10/21 02/10/21 02/10/21 Range/Units 05:10 05:10 05:10 WBC 10.1 (4.5-11.0) K/uL RBC 5.06 (4.30-5.90) M/uL Hgb 15.8 H (12.0-15.0) g/dL Hct 47.5 (40.0-54.0) % MCV 94 (80-98) fL MCH 31 (27-31) pg MCHC 33 (32-36) % Plt Count 201 (150-400) K/uL Neut % (Auto) 76.7 H (36-66) % Lymph % (Auto) 11.8 L (24-44) % Door % (Auto) 10.3 H (2-6) % Eos % (Auto) 1.1 L (2-4) % Baso % (Auto) 0.1 (0-1) % PT 12.1 H (9.2-10.6) sec INR 1.2 Sodium 140 (140-148) mmol/L Potassium 3.6 (3.6-5.2) mmol/L Chloride 103 (100-108) mmol/L Carbon Dioxide 28 (21-32) mmol/L Anion Gap 8.7 (5.0-14.0) mmol/L BUN 26 H (7-18) mg/dL Creatinine 1.1 (0.8-1.3) mg/dL Est Cr Clr Drug Dosing 56.83 mL/min Estimated GFR (MDRD) > 60 (>60) Glucose 99 (74-106) mg/dL Calcium 8.7 (8.5-10.1) mg/dL Phosphorus 2.8 (2.5-4.9) mg/dL Magnesium 2.1 (1.8-2.4) mg/dL Total Bilirubin 0.7 (0.2-1.0) mg/dL AST 18 (15-37) U/L ALT 43 D (12-78) U/L Alkaline Phosphatase 89 (46-116) U/L Total Protein 6.2 L (6.4-8.2) g/dL Albumin 2.5 L (3.4-5.0) g/dL Globulin 3.7 H (2.3-3.5) g/dL Albumin/Globulin Ratio 0.7 L (1.2-2.2) Result Diagrams: 02/10/21 05:10 02/10/21 05:10 Sepsis Event Note - Evaluation Sepsis Screening Result: No Definite Risk - Focused Exam Vital Signs: Vital Signs Temp Pulse Resp BP Pulse Ox 02/10/21 07:35 36.5 C 60 16 162/98 H 95 02/10/21 02:00 36.1 C 63 18 166/98 H 97 - Problem List Review Problem List Initiated/Reviewed/Updated: Yes - My Orders Last 24 Hours: My Active Orders 02/09/21 19:44 Vaccine to be Administered/Admin Charge [RC] ASDIRECTED 02/11/21 09:00 Furosemide [Lasix] 20 mg PO DAILY - Plan Plan:: ASSESSMENT AND PLAN - 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 Surgical sites appear to be healing well. Patient does continue to be confused but seems to be less so compared to prior to the procedure. Mild abdominal pain reported not unexpected after his surgery. He was able to stand up and take a few steps forward and backwards with assist of 2. -wound care of surgical sites- right scalp, right neck and right mid abdomen -IV Saline lock -consult to PT -consult to OT -high risk for falls -appointment wit Dr. Cory Clemente, post -op follow up, 02-18-2021 at 11:30 am at [facility] Cognitive deficits-could be related to the normal pressure hydrocephalus and hopefully will improve over time. -supportive care -at risk for falls CHRONIC AFIB-currently rate controlled. He was previously chronically anticoagulated but this had been held for his procedure. -Xarelto 20 mg po daily HFrEF-recently diagnosed with mild reduction in ejection fraction. Mild dyspnea and lower extremity edema prompted echocardiogram. Both these are improving with diuresis. -Furosemide 20 mg daily HYPERTENSION -continue outpatient medications -Start TYRESE inhibitor -Propranolol 20 mg po daily Kidney disease stage 3- -Appointment Nephrology, Cy Jay PA-c, at 1:20 pm at [facility] -Appointment Labs at [facility] -Repeat labs in the morning MAINTENANCE ISSUES -DVT prophylaxis; Xarelto 20 mg po bid -GI prophylaxis; Protonix 40 mg daily -Hernandez catheter; not indicated -Nutrition; regular diet ADMISSION STATUS-this patient will be admitted to observation status, expect no more than a one night hospital stay for evaluation and management of problems as outlined above. DISPOSITION-anticipate discharge to [facility] on Sunday after the hospital stay. PRIMARY CARE PROVIDER-Dr. Valencia, [facility] John Goldberg MD
[2021-02-10] MEDS ORDERED: oxyCODONE 5 MG Tab PO PRN (11:21)
[2021-02-10] MEDS: Acetaminophen 500 MG Tab PO SCH ×2 (15:20→20:36)
[2021-02-10] MEDS: PROPRANOLOL 20 MG PO SCH (15:20)
[2021-02-10] MEDS: OXYBUTYNIN CHLORIDE 10 MG PO SCH (15:21)
[2021-02-10] MEDS: XARELTO 20 MG PO SCH (15:21)
[2021-02-10] MEDS ORDERED: XARELTO 20 MG PO SCH (18:00)
[2021-02-10] MEDS ORDERED: Melatonin 3 MG Tab PO SCH (21:00)
[2021-02-10] MEDS ORDERED: Terazosin 5 MG Cap (PTOM) PO SCH (21:00)
[2021-02-10] MEDS ORDERED: SIMVASTATIN 80 MG PO SCH (21:00)
[2021-02-11] MEDS: Pantoprazole 40 MG Tab.CR PO SCH (07:47)
[2021-02-11] MEDS: Polyethylene Glycol 3350 Powder 17 GM Packet PO SCH ×2 (08:31→12:26)
[2021-02-11] MEDS: OXYBUTYNIN CHLORIDE 10 MG PO SCH (08:32)
[2021-02-11] MEDS: XARELTO 20 MG PO SCH (08:32)
[2021-02-11] MEDS: Acetaminophen 500 MG Tab PO SCH (08:33)
[2021-02-11] MEDS: PROPRANOLOL 20 MG PO SCH (08:35)
[2021-02-11] MEDS ORDERED: Lisinopril 5 MG Tab PO SCH (09:00)
[2021-02-11] MEDS ORDERED: Furosemide 20 MG Tab PO SCH (09:00)
--- NOTE | 2021-02-11 10:01 | PCM.DCSUM1 ---
Discharge Summary - Hospital Course Brief History: 80-year-old male with history of chronic atrial fibrillation, mild systolic congestive heart failure and normal pressure hydrocephalus who was admitted to help transition the patient between his surgery and rehab. Diagnosis: Stroke: No - Discharge Data Discharge Date: 02/11/21 Discharge Disposition: DC/Tfer to SNF 03 Condition: Fair - Referral to Home Health Primary Care Physician: Bonifacio Valencia MD - Discharge Diagnosis/Problem(s) (1) S/P ventriculoperitoneal shunt SNOMED Code(s): 399505945, 60088846, 853897374 ICD Code: Z98.2 - PRESENCE OF CEREBROSPINAL FLUID DRAINAGE DEVICE Status: Acute Current Visit: Yes (2) NPH (normal pressure hydrocephalus) SNOMED Code(s): 43857590 ICD Code: G91.2 - (IDIOPATHIC) NORMAL PRESSURE HYDROCEPHALUS Status: Suspected Current Visit: No (3) BPH loc w urin obs/LUTS SNOMED Code(s): 939253130 ICD Code: N40.1 - BENIGN PROSTATIC HYPERPLASIA WITH LOWER URINARY TRACT SYMP Status: Chronic Current Visit: No (4) Chronic atrial fibrillation SNOMED Code(s): 809820854 ICD Code: I48.20 - CHRONIC ATRIAL FIBRILLATION, UNSPECIFIED Status: Chronic Current Visit: No (5) MANDI on CPAP SNOMED Code(s): 49822190 ICD Code: G47.33 - OBSTRUCTIVE SLEEP APNEA (ADULT) (PEDIATRIC); Z99.89 - DEPENDENCE ON OTHER ENABLING MACHINES AND DEVICES Status: Chronic Current Visit: No - Patient Summary/Data Consults: Consultations 02/09/21 20:28 OT Evaluation and Treatment [CONS] Routine Please Evaluate and Treat. OT Reason for Consult: Discharge Planning This query below is only for informational purposes and is not editable. Admission Diagnosis/Problem: Hydrocephalus in adult PT Evaluation and Treatment [CONS] Routine Please Evaluate and Treat. PT Reason for Consult: Strengthening This query below is only for informational purposes and is not editable. Admission Diagnosis/Problem: Hydrocephalus in adult Hospital Course: Valentin was initially admitted to the hospital on January 25 after he presented with increasing confusion, gait instability, falls and urinary changes. Work-up was concerning for normal pressure hydrocephalus. He did have a head CT and MRI that were consistent with enlarged ventricles and concerning for NPH. We did perform a lumbar puncture with removal of 17 mL of fluid that temporarily improved his symptoms with clinical worsening after about 24 hours post procedure. Our hope was that we could get him over to [facility] to have a definitive procedure but the patient was not doing well enough to be treated as an outpatient. The plan was changed for him to be transferred there for the procedure but unfortunately because of the Covid pandemic his procedure was delayed more than a week. Eventually we were able to transfer him to [facility]. He had a right-sided STOVE TENDER shunt placed by Dr. Clemente on February 08. His postop course was uneventful. He was transferred back here until an appropriate rehab facility could be found. He has done well during his time here in our hospital. His mental status has improved significantly since admission. His strength is improving. There are no obvious difficulties following surgery. Abdominal pain is improving. I believe he will be able to rehab quickly and return home in the not too distant future. He would benefit from physical and occupational therapy. He has follow-up scheduled in 1 week's time and the sravani will be removed at that time. - Patient Instructions Diet: Regular Diet as Tolerated Activity: As Tolerated Showering/Bathing: May Shower, No Tub Bathing/Swimming Notify Provider of: Fever, Increased Pain Other/Special Instructions: 1. Keep the surgical sites on your scalp, neck and abdomen clean and dry. The sravani will be removed at your follow-up appointment next Sunday. 2. Referral to physical and occupational therapy for strengthening and improvement in activities of daily living. 3. CODE STATUS - full code - Discharge Plan *PRESCRIPTION DRUG MONITORING PROGRAM REVIEWED*: Not Applicable *COPY OF PRESCRIPTION DRUG MONITORING REPORT IN PATIENT OLAYINKA: Not Applicable Prescriptions/Med Rec: Furosemide [Lasix] 20 mg PO DAILY #30 tablet Melatonin 5 mg PO BEDTIME #30 tablet Oxybutynin Chloride [Oxybutynin Chloride ER] 10 mg PO DAILY #30 oxyCODONE 5 mg PO Q4H PRN #40 tablet PRN Reason: Pain lisinopriL [Prinivil] 5 mg PO DAILY #30 tablet Acetaminophen [Tylenol Extra Strength] 1,000 mg PO TID #200 tablet Home Medications: Home Meds Acetaminophen [Tylenol Extra Strength] 1,000 mg PO TID #200 tablet 02/11/21 [Rx] Furosemide [Lasix] 20 mg PO DAILY #30 tablet 02/11/21 [Rx] Melatonin 5 mg PO BEDTIME #30 tablet 02/11/21 [Rx] Oxybutynin Chloride [Oxybutynin Chloride ER] 10 mg PO DAILY #30 02/11/21 [Rx] Propranolol HCl 20 mg PO DAILY #30 tab 02/11/21 [Rx] Rivaroxaban [Xarelto] 20 mg PO DAILY #30 tab 02/11/21 [Rx] Simvastatin 80 mg PO BEDTIME #30 tab 02/11/21 [Rx] Terazosin [Hytrin] 10 mg PO BEDTIME #30 tab 02/11/21 [Rx] lisinopriL [Prinivil] 5 mg PO DAILY #30 tablet 02/11/21 [Rx] oxyCODONE 5 mg PO Q4H PRN #40 tablet 02/11/21 [Rx] Oxygen Therapy Mode: Room Air Patient Handouts: Normal-Pressure Hydrocephalus Referrals: Cory Clemente DO [Ordering Only Provider] - 02/18/21 - Discharge Summary/Plan Comment DC Time >30 min.: Yes Total # of Minutes for Discharge Time: 45-new OK discharge - Patient Data Vitals - Most Recent: Last Vital Signs Temp 36.5 C 02/11/21 07:13 Pulse 68 02/11/21 07:13 Resp 16 02/11/21 07:13 BP 131/71 02/11/21 08:33 Pulse Ox 98 02/11/21 07:13 Weight - Most Recent: 95.254 kg I&O - Last 24 hours: Intake & Output 02/10/21 02/11/21 02/11/21 22:59 06:59 14:59 Intake Total 110 Balance 110 Med Orders - Current: Current Medications Acetaminophen (Acetaminophen 500 Mg Tab) 1,000 mg PO TID [facility] Last Admin: 02/11/21 08:33 Dose: 1,000 mg Documented by: Albuterol (Albuterol 0.083% 2.5 Mg/3 Ml Neb Soln) 2.5 mg NEB Q4H PRN PRN Reason: Shortness Of Breath/wheezing Bisacodyl (Bisacodyl 5 Mg Tab) 5 mg PO DAILY PRN PRN Reason: Constipation Docusate Sodium (Docusate Sodium 100 Mg Cap) 100 mg PO BID PRN PRN Reason: Constipation Furosemide (Furosemide 20 Mg Tab) 20 mg PO DAILY [facility] Last Admin: 02/11/21 08:31 Dose: 20 mg Documented by: Lisinopril (Lisinopril 5 Mg Tab) 5 mg PO DAILY [facility] Last Admin: 02/11/21 08:33 Dose: 5 mg Documented by: Lorazepam (Lorazepam 2 Mg/Ml Sdv) 1 mg IV Q6H PRN PRN Reason: Nausea/Vomiting Melatonin (Melatonin 3 Mg Tab) 9 mg PO BEDTIME [facility] Last Admin: 02/10/21 20:36 Dose: 9 mg Documented by: Morphine Sulfate (Morphine 2 Mg/Ml Syringe) 2 mg IVPUSH Q2H PRN PRN Reason: Pain (severe 7-10) Oxybutynin Chloride (Er 10 Mg Tab (Ptom)) 10 mg PO DAILY [facility] Last Admin: 02/11/21 08:32 Dose: 10 mg Documented by: Simvastatin 80 Mg (Tablet (Ptom)) 0 mg PO BEDTIME [facility] Last Admin: 02/10/21 20:35 Dose: 80 mg Documented by: Ondansetron HCl (Ondansetron 4 Mg Tab.Dis) 4 mg PO Q6H PRN PRN Reason: Nausea able to take PO Ondansetron HCl (Ondansetron 4 Mg/2 Ml Sdv) 4 mg IV Q4H PRN PRN Reason: Nausea/Vomiting Oxycodone HCl (Oxycodone 5 Mg Tab) 5 mg PO Q4H PRN PRN Reason: Pain (moderate 4-6) Pantoprazole Sodium (Pantoprazole 40 Mg Tab.Cr) 40 mg PO ACBREAKFAST [facility] Last Admin: 02/11/21 07:47 Dose: 40 mg Documented by: Propranolol 20mg Tab ((Ptom)) 1 each PO DAILY [facility] Last Admin: 02/11/21 08:35 Dose: 1 each Documented by: Xarelto 20mg Tab ( (Ptom)) 1 each PO DAILY [facility] Last Admin: 02/11/21 08:32 Dose: 1 each Documented by: Polyethylene Glycol (Polyethylene Glycol 3350 Powder 17 Gm Packet) 17 gm PO DAILY [facility] Last Admin: 02/10/21 08:16 Dose: 17 gm Documented by: Sodium Chloride (Sodium Chloride 0.9% 10 Ml Syringe) 10 ml FLUSH ASDIRECTED PRN PRN Reason: Keep Vein Open Terazosin HCl (Terazosin 5 Mg Cap (Ptom)) 10 mg PO BEDTIME [facility] Last Admin: 02/10/21 20:34 Dose: 10 mg Documented by: Discontinued Medications Acetaminophen (Acetaminophen 325 Mg Tab) 650 mg PO Q4H PRN PRN Reason: Pain (Mild 1-3)/fever Influenza Virus Vaccine (Pharmacy To Dose - Influenza Vaccine) 1 each IM ONETIME ONE Stop: 02/10/21 08:31 Influenza Virus Vaccine (Flu Vacc [id number](65yr Up)/Pf 240 Mcg/0.7 Ml Syringe) 240 mcg IM .ONCE ONE Stop: 02/10/21 08:31 Last Admin: 02/10/21 13:51 Dose: 240 mcg Documented by: Oxycodone/Acetaminophen (Acetaminophen/Oxycodone 325-5 Mg Tab) 1 tab PO Q4H PRN PRN Reason: Pain (moderate 4-6) Last Admin: 02/10/21 08:52 Dose: 1 tab Documented by: Terazosin HCl (Terazosin 5 Mg Cap) 10 mg PO ONETIME ONE Stop: 02/09/21 21:16 Last Admin: 02/09/21 21:42 Dose: Not Given Documented by: - Exam Quality Assessment: Denies: Supplemental Oxygen General: Reports: Alert, Oriented, Cooperative, No Acute Distress Wound/Incisions: Reports: Other (sravani overlying clean incisions in two location on the scalp, one small incision with sravani on the right next and a large incision with sravani on the right upper abdomen ). Denies: Erythema
== END 2021-02-11 12:00 ==
LOC: EEVIPCON 18:34 → JP.MS 18:34
PROVIDERS: ADMIT Internal Medicine; ATTEND Internal Medicine
DX: G91.2 (Idiopathic) normal pressure hydrocephalus (principal); E78.00 Pure hypercholesterolemia, unspecified; I48.20 Chronic atrial fibrillation, unspecified; I13.0 Hypertensive heart and chronic kidney disease with heart failure and stage 1 through stage 4 chronic kidney disease, or unspecified chronic kidney disease; F03.90 Unspecified dementia, unspecified severity, without behavioral disturbance, psychotic disturbance, mood disturbance, and anxiety; N40.1 Benign prostatic hyperplasia with lower urinary tract symptoms; N13.8 Other obstructive and reflux uropathy; I50.20 Unspecified systolic (congestive) heart failure; G47.33 Obstructive sleep apnea (adult) (pediatric); N18.30 Chronic kidney disease, stage 3 unspecified; Z79.899 Other long term (current) drug therapy; Z98.890 Other specified postprocedural states; Z79.01 Long term (current) use of anticoagulants
CPT/HCPCS: 36415; 80053; 83735; 84100; 85025; 85610; 90662; 97110; 97164; 97166; 97530; 97535; A9270; G0008; G0378